=== PATIENT | male | born 1970 | race Two or more races ===

== ENCOUNTER → 2020-09-18 14:43 | Outpatient (BNVA) | payer MEDICARE, MEDICAID, SELFPAY | PROVIDERS: PCP Internal Medicine; Visit Provider Internal Medicine Gastroenterology | DX: Z13.89 Encounter for screening for other disorder (principal) | CPT/HCPCS: Q3014 ==

== ENCOUNTER → 2020-10-16 09:34 | Outpatient (BNVA) | payer MEDICARE, MEDICAID, SELFPAY | PROVIDERS: PCP Internal Medicine; Visit Provider Student in an Organized Health Care Education/Training Program | DX: Z13.89 Encounter for screening for other disorder (principal) | CPT/HCPCS: Q3014 ==

== ENCOUNTER 2020-10-18 12:19 | Outpatient (REF) | payer MEDICARE, MEDICAID, SELFPAY ==
--- NOTE | 2020-10-18 12:31 | XR_ITS ---
EXAMINATION: XR HAND, RIGHT CLINICAL INFORMATION: Pain right hand. COMPARISON: 06/03/15. TECHNIQUE: PA, lateral, and oblique views of the right hand. FINDINGS: There are moderate degenerative changes at the first metacarpal phalangeal joint with joint space narrowing and marginal osteophytosis. There is subluxation. The appearance has progressed from previous. No new abnormality is demonstrated. A small metallic foreign body over the dorsal aspect of the middle phalanx of the long finger is again demonstrated. 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 XR/XR hand RT min 3V IMPRESSION: Degenerative changes first metacarpal phalangeal joint with mild interval progression. Subluxation. No acute abnormality.
--- NOTE | 2020-10-18 12:31 | XR_ITS ---
EXAMINATION: XR WRIST, LEFT CLINICAL INFORMATION: Pain left wrist. COMPARISON: None TECHNIQUE: PA, lateral, and oblique views of the left wrist. FINDINGS: There is a small loose body adjacent to lunate and triquetrum bone. Likely old injury. The pisiform bone is not clearly visualized. There is no acute fracture, dislocation or subluxation seen. The soft tissues are unremarkable. XR/XR wrist LT min 3V IMPRESSION: The pisiform bone is not seen. There is a loose body seen adjacent to the lunate- triquetral joint, question old injury or displaced fusiform bone. Correlate with CT or MRI.
[2020-10-18 14:09] LABS: Erythrocyte Sedimentation Rate 13 MM/HR (0-15)
[2020-10-18 14:10] LABS: C Reactive Protein 0.27 mg/dL (< or = 0.50); Uric Acid 5.2 mg/dL (3.4-7.0)
== END 2020-10-18 12:20 | disposition home or self-care (01) ==
LOC: HO.LAB 12:19
PROVIDERS: PCP Internal Medicine; Visit Provider Student in an Organized Health Care Education/Training Program
DX: M79.641 Pain in right hand (principal); M25.532 Pain in left wrist
CPT/HCPCS: 36415; 73110; 73130; 84550; 85652; 86140

== ENCOUNTER 2020-10-29 13:35 | Outpatient (REF) | payer MEDICARE, MEDICAID, SELFPAY ==
--- NOTE | 2020-10-29 13:38 | CT_ITS ---
EXAMINATION: CT WRIST WITHOUT CONTRAST, LEFT CLINICAL INFORMATION: Left wrist pain. Recent trauma. COMPARISON: Multiple priors, most recent left wrist radiographs dated 10/18/2020. TECHNIQUE: Contiguous axial CT images of the left wrist were obtained without contrast. Multiplanar reformats were provided and reviewed. This CT examination was performed using dose optimization techniques as appropriate, variously including the following: *Automated exposure control *Adjustment of mA and/or kV according to patient size (this includes techniques or standardized protocols for targeted exams where dose is matched to indication/reason for exam; i.e. extremities or head) *Use of iterative reconstruction technique DOSE: 151 mGy-cm FINDINGS: No acute fracture or dislocation. There is a chronic carpal boss at the dorsal aspect of the hamate. There is a bone island within the lunate. There is a prominent osteophyte along the ulnar margin of the lunate, corresponding to the prior radiograph findings. Joint space narrowing with marginal osteophytes and degenerative cystic change throughout the carpus as well as at the radiocarpal and carpometacarpal joints. Findings are most severe at the 4th and 5th carpometacarpal joints. No concerning lytic or blastic osseous lesion. The visualized flexor and extensor tendons are grossly intact, however evaluation is significantly limited on CT examination. No abnormal soft tissue mass or fluid collection. CT/CT wrist LT wo con IMPRESSION: No acute fracture or dislocation. Prominent degenerative arthritis within the radiocarpal joint, throughout the carpus, as well as at the carpometacarpal joints. Findings are most severe at the 4th and 5th carpometacarpal joints. Prominent marginal osteophyte along the ulnar aspect of the lunate, corresponding to the prior wrist radiograph findings. Carpal boss at the dorsal aspect of the hamate.
== END 2020-10-29 13:36 | disposition home or self-care (01) ==
LOC: HO.CT 13:35
PROVIDERS: PCP Internal Medicine; Visit Provider Student in an Organized Health Care Education/Training Program
DX: M25.532 Pain in left wrist (principal)
CPT/HCPCS: 73200

== ENCOUNTER → 2020-11-22 13:00 | Outpatient (BNVA) | payer MEDICARE, MEDICAID, SELFPAY | PROVIDERS: Visit Provider Student in an Organized Health Care Education/Training Program | DX: M18.11 Unilateral primary osteoarthritis of first carpometacarpal joint, right hand (principal); M89.49 Other hypertrophic osteoarthropathy, multiple sites | CPT/HCPCS: 99212 ==

== ENCOUNTER → 2020-12-11 12:45 | Outpatient (BNVA) | payer MEDICARE, MEDICAID, SELFPAY | PROVIDERS: Visit Provider Internal Medicine Cardiovascular Disease | DX: I25.10 Atherosclerotic heart disease of native coronary artery without angina pectoris (principal); M79.606 Pain in leg, unspecified; Z98.62 Peripheral vascular angioplasty status | CPT/HCPCS: 93005; 99212 ==

== ENCOUNTER 2021-02-07 10:03 | Outpatient (REF) | payer MEDICARE, MEDICAID, SELFPAY ==
--- NOTE | ~2021-02-07 | US_ITS ---
EXAMINATION: US NONINVASIVE ANKLE BRACHIAL INDICES OF BOTH LOWER EXTREMITIES CLINICAL INFORMATION: Peripheral vascular disease. COMPARISON: 08/21/2011 TECHNIQUE: Ankle-brachial indices were calculated bilaterally and PVR tracings were performed at the level of the ankles. This study was performed at rest only. FINDINGS: A) AT REST: 1. The ankle-brachial indices are: Right 1.08 and left 1.07. >0.97-1.25 = normal - no significant arterial disease. 0.75-0.96 = mild peripheral arterial disease. 0.5-0.74 = moderate peripheral arterial disease. <0.50 = severe peripheral arterial disease. 2. PVR waveforms at ankle: Normal. US/US CIELO complete IMPRESSION: ABIs as well as PVR tracings at the ankle remain normal.
== END 2021-02-07 10:04 | disposition home or self-care (01) ==
LOC: HO.US 10:03
PROVIDERS: PCP Internal Medicine; Visit Provider Internal Medicine Cardiovascular Disease
DX: M79.606 Pain in leg, unspecified (principal); I73.9 Peripheral vascular disease, unspecified
CPT/HCPCS: 93923

== ENCOUNTER → 2021-03-17 12:52 | Outpatient (BNVA) | payer MEDICARE, MEDICAID, SELFPAY | PROVIDERS: PCP Internal Medicine; Referring Provider Internal Medicine; Visit Provider Internal Medicine Cardiovascular Disease | DX: I25.10 Atherosclerotic heart disease of native coronary artery without angina pectoris (principal); Z98.62 Peripheral vascular angioplasty status | CPT/HCPCS: 99212 ==

== ENCOUNTER → 2021-04-14 08:18 | Outpatient (BNVA) | payer MEDICARE, MEDICAID, SELFPAY | PROVIDERS: PCP Internal Medicine; Visit Provider Physician Assistant | CPT/HCPCS: Q3014 ==

== ENCOUNTER 2021-04-21 13:22 | Outpatient (REF) | payer MEDICARE, MEDICAID, SELFPAY ==
[2021-04-21 14:16] LABS: MANUAL DIFF FLAG NO
[2021-04-21 14:20] LABS: Basophils Absolute Auto 0.1 X10*3/uL (0.0-0.2); Basophils Percent Auto 0.5 % (0-2); Eosinophils Absolute Auto 0.1 X10*3/uL (0.0-0.4); Eosinophils Percent Auto 1.4 % (0-4); Hematocrit 42.2 % (42-52); Hemoglobin 14.1 g/dl (14.0-18.0); Imm Gran Abs Auto 0.09 X10*3/uL (0.00-0.03); Lymphocytes Absolute Auto 2.8 X10*3/uL (1.2-4.9); Lymphocytes Percent Auto 30.2 % (20-40); Mean Corpuscular HGB Conc 33.4 g/dl (31.0-36.0); Mean Corpuscular Hemoglobin 31.5 pg (27.0-33.0); Mean Corpuscular Volume 94.2 fL (80-98); Mean Platelet Volume 9.7 fL (9.4-12.4); Monocytes Absolute Auto 0.7 X10*3/uL (0.1-1.2); Monocytes Percent Auto 7.9 % (2-11); Neutrophils Absolute Auto 5.5 X10*3/uL (2.0-8.3); Platelet Count 204 X10*3/uL (160-400); Red Blood Count 4.48 X10*6/uL (4.60-5.80); Red Cell Distribution Width 12.9 % (11.0-16.0); White Blood Count 9.4 X10*3/uL (4.8-10.8)
[2021-04-21 15:42] LABS: Alanine Aminotransferase 27 U/L (0-40); Albumin Level 4.3 g/dL (3.5-5.0); Alkaline Phosphatase 86 U/L (39-117); Anion Gap 10 (12-20); Aspartate Amino Transferase 19 U/L (5-37); Bilirubin Total 0.7 mg/dL (0.0-1.0); Blood Urea Nitrogen 7 mg/dL (9-16); Calcium 9.3 mg/dL (8.4-10.2); Carbon Dioxide 28 mmol/L (22-29); Chloride 107 mmol/L (96-108); Cholesterol 142 mg/dL; Estimated Glomerular Filt Rate > 60; Glucose Fasting 110 mg/dL (60-99); HDL Cholesterol 39 mg/dL; LDL Cholesterol Calculated 86 mg/dl; Potassium 4.3 mmol/L (3.3-5.1); Sodium 141 mmol/L (135-145); Total Protein 7.6 g/dL (6.5-8.0); Triglycerides 88 mg/dL
[2021-04-21 16:03] LABS: Prostate Specific Antigen 0.74 ng/mL (<0.05-4.0)
[2021-04-21 16:04] LABS: Thyroid Stimulating Hormone 0.62 uIU/mL (0.32-4.0)
== END 2021-04-21 13:23 | disposition home or self-care (01) ==
LOC: HO.LAB 13:22
PROVIDERS: PCP Internal Medicine; Visit Provider Internal Medicine
DX: Z12.5 Encounter for screening for malignant neoplasm of prostate (principal); E78.00 Pure hypercholesterolemia, unspecified; R63.5 Abnormal weight gain; K21.9 Gastro-esophageal reflux disease without esophagitis; N40.0 Benign prostatic hyperplasia without lower urinary tract symptoms; I25.10 Atherosclerotic heart disease of native coronary artery without angina pectoris
CPT/HCPCS: 36415; 80053; 80061; 84153; 84443; 85025

== ENCOUNTER 2021-04-28 12:48 | Outpatient (REF) | payer MEDICARE, MEDICAID, SELFPAY ==
--- NOTE | ~2021-04-28 | XR_ITS ---
EXAMINATION: XR KNEE, LEFT CLINICAL INFORMATION: Left knee pain COMPARISON: None TECHNIQUE: Four views of the left knee. FINDINGS: There is mild loss of patellofemoral and medial compartment joint space. No acute fracture, bony erosive changes seen. There are small loose bodies inferior to patella likely old injury and secondary hypertrophic bony changes with a moderate size inferior patellar spur and a small superior patellar spur. No abnormal joint effusion seen. No soft tissue swelling. XR/XR knee LT 4V IMPRESSION: 1. Hypertrophic bony spurring along the superior and inferior patella and small loose bodies adjacent to the patella likely from old injury. 2. The medial and lateral compartments are normal. 3. There is no acute fracture seen.
== END 2021-04-28 12:49 | disposition home or self-care (01) ==
LOC: HO.XRAY 12:48
PROVIDERS: PCP Internal Medicine; Visit Provider Internal Medicine
DX: M25.562 Pain in left knee (principal)
CPT/HCPCS: 73564

== ENCOUNTER → 2021-07-21 13:57 | Outpatient (BNVA) | payer MEDICARE, MEDICAID, SELFPAY | PROVIDERS: PCP Internal Medicine; Referring Provider Internal Medicine; Visit Provider Internal Medicine Cardiovascular Disease | DX: I25.10 Atherosclerotic heart disease of native coronary artery without angina pectoris (principal) | CPT/HCPCS: 99212 ==

== ENCOUNTER 2021-08-19 11:07 | Outpatient (REF) | payer MEDICARE, MEDICAID, SELFPAY ==
--- NOTE | ~2021-08-19 | XR_ITS ---
EXAMINATION: XR MASTOIDS CLINICAL INFORMATION: Pain in the area the right mastoid COMPARISON: None TECHNIQUE: 3 views of the mastoid air cells bilaterally. FINDINGS: Normal aeration of the right and left mastoid air cells. No bone erosion no focal bone lesion. XR/XR mastoids <3V IMPRESSION: Normal bilateral mastoids.
[2021-08-19 13:58] LABS: MANUAL DIFF FLAG NO
[2021-08-19 14:07] LABS: Basophils Absolute Auto 0.1 X10*3/uL (0.0-0.2); Basophils Percent Auto 0.8 % (0-2); Eosinophils Absolute Auto 0.2 X10*3/uL (0.0-0.4); Eosinophils Percent Auto 2.5 % (0-4); Hematocrit 41.2 % (42.0-52.0); Imm Gran Abs Auto 0.07 X10*3/uL (0.00-0.03); Imm Gran Pct Auto 0.8 % (0.0-0.4); Lymphocytes Absolute Auto 3.1 X10*3/uL (1.2-4.9); Lymphocytes Percent Auto 33.7 % (20-40); Mean Corpuscular Hemoglobin 31.5 pg (27.0-33.0); Mean Corpuscular Volume 92.8 fL (80.0-98.0); Monocytes Absolute Auto 0.8 X10*3/uL (0.1-1.2); Monocytes Percent Auto 8.5 % (2-11); Neutrophils Percent Auto 53.7 % (45-73); Platelet Count 221 X10*3/uL (160-400); Red Blood Count 4.44 X10*6/uL (4.60-5.80); White Blood Count 9.3 X10*3/uL (4.8-10.8)
[2021-08-19 14:52] LABS: Alanine Aminotransferase 29 U/L (0-40); Albumin Level 4.1 g/dL (3.5-5.0); Alkaline Phosphatase 88 U/L (39-117); Anion Gap 11 (12-20); Aspartate Amino Transferase 19 U/L (5-37); Bilirubin Total 0.5 mg/dL (0.0-1.0); Blood Urea Nitrogen 7 mg/dL (9-16); C Reactive Protein 0.28 mg/dL (< or = 0.50); Calcium 8.9 mg/dL (8.4-10.2); Carbon Dioxide 25 mmol/L (22-29); Chloride 108 mmol/L (96-108); Estimated Glomerular Filt Rate > 60; Glucose Random 122 mg/dL (60-115); Potassium 3.9 mmol/L (3.3-5.1); Sodium 140 mmol/L (135-145); Total Protein 7.1 g/dL (6.5-8.0)
== END 2021-08-19 11:08 | disposition home or self-care (01) ==
LOC: HO.10HDL 11:07
PROVIDERS: Visit Provider Internal Medicine
DX: I25.10 Atherosclerotic heart disease of native coronary artery without angina pectoris (principal); E78.00 Pure hypercholesterolemia, unspecified; H92.01 Otalgia, right ear
CPT/HCPCS: 36415; 70120; 80053; 85025; 86140

== ENCOUNTER → 2021-12-01 14:33 | Outpatient (BNVA) | payer MEDICARE, MEDICAID, SELFPAY | PROVIDERS: PCP Internal Medicine; Referring Provider Internal Medicine; Visit Provider Internal Medicine Cardiovascular Disease | DX: I25.118 Atherosclerotic heart disease of native coronary artery with other forms of angina pectoris (principal) | CPT/HCPCS: 93005; 99212 ==

== ENCOUNTER → 2022-01-05 08:21 | Day surgery (SDC) | payer MEDICARE, MEDICAID, SELFPAY ==
[2021-10-14 09:40] VITALS: BMI 46.8
[2021-10-14 14:20] VITALS: BMI 41.2
--- NOTE | 2022-01-02 12:31 | P.CONAN_ITS ---
HPI - Anesthesia Eval Consult details Narrative: Cx'd 01/05/22 d/t +cocaine tox screen 51yo M for Upper Endoscopy and Colonoscopy Plavix/ASA for CAD s/p stent 06/2020 Stable at routine cardiac f/u 11/2021 [facility] Active Problems Active Problems: All Active Problems (Updated 12/01/21 @ 15:04 by Bhupendra Hoover MD) Stable angina (Acute) CAD (coronary artery disease) (Acute) GERD (gastroesophageal reflux disease) (Acute) Left wrist pain (Acute) Right hand pain (Acute) Primary osteoarthritis involving multiple joints (Acute) Osteoarthritis of carpometacarpal joint of right thumb (Acute) Leg pain (Acute) Claudication (Acute) GERD (gastroesophageal reflux disease) (Acute) Hx of colonic polyps (Acute) IBS (irritable colon syndrome) (Acute) Status post angioplasty (Acute) Past Medical History Medical History CAD (coronary artery disease) Elevated cholesterol GERD (gastroesophageal reflux disease) History of depression Hx of colonic polyps Hx of hypogonadism IBS (irritable colon syndrome) Migraine Neuropathy On beta bj at home Osteoarthritis Thalamic pain syndrome Vitamin D deficiency Family History Family History Father Heart attack Mother Heart attack Surgical History Surgical History History of ankle surgery History of carpal tunnel surgery of left wrist History of esophagogastroduodenoscopy (EGD) History of heart artery stent History of open reduction and internal fixation (ORIF) procedure History of rectal sphincterotomy History of shoulder surgery History of tonsillectomy Hx of colonoscopy with polypectomy Status post angioplasty Social History Social History Household Members: None Are you a primary health care liaison to a significant other at home: No Do you presently have visiting nurse or other home services: Yes ([employer]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 If so, by whom?: No Are you DNR?: No Advance Directives: No Advance Directives Information Provided: Yes Advance Directives on File: No Recently lost weight without trying: No Nutrition Risks: Difficulty chewing Poor oral hygiene: Yes (full dentures, ill-fitting and broken) Current occupational status: disabled Meds Allergies Allergy/AdvReac Type Severity Reaction Status Date / Time meloxicam [From [facility]] Allergy Severe GI BLEED Verified 12/01/21 14:40 Penicillins Allergy Severe ANAPHYLAXIS Verified 12/01/21 14:40 Home Medications Medication Instructions Recorded Confirmed Last Taken Type aspirin 81 mg chewable tablet 81 mg PO DAILY 09/18/20 12/01/21 Unknown History (Julia Chewable Low Dose Aspirin) baclofen 10 mg tablet 10 mg PO BEDTIME 10/16/20 12/01/21 Unknown History gabapentin 600 mg tablet 600 mg PO TID 10/16/20 12/01/21 Unknown History testosterone enanthate 100 mg/0.5 100 mg SUBCUT QWEEK 10/16/20 12/01/21 Unknown History mL subcutaneous auto-injector svnlypebtj-abvbyardafgaq-ixsxubna 1 cap PO Q6H PRN 10/14/21 12/01/21 Unknown History 50 mg-300 mg-40 mg capsule (Fioricet) Exam Exam Date and Time: January 02, 2022 1231 Height,Weight and Vital Signs: Height 5 ft 8 in Weight 122.924 kg Pertinent Lab Results Pertinent Lab Results: Laboratory Tests 08/19/21 08/19/21 11:11 11:11 WBC 9.3 Hgb 14.0 Hct 41.2 L Plt Count 221 Sodium 140 Potassium 3.9 Chloride 108 Carbon Dioxide 25 BUN 7 L Creatinine 0.78 Narrative Narrative: EKG 11/2021 NSR @ 83 cardiac catheterization 06/2020 which showed proximal LAD 50% stenosis as well as distal RCA 99% stenosis involving a bifurcation of a large posterior descending artery and posterolateral branch. This was treated with provisional stenting across the PL into the PDA. Assessment and Plan Assessment Anesthesia Assessment: Chart Reviewed
[2022-01-05 08:51] VITALS: BP 124/60; PULSE 92; RESP 18; TEMP 37; O2SAT 95
[2022-01-05 08:55] LABS: Amphetamine Screen Urine Not Detected (Not Detect); Barbiturates, Urine Not Detected (Not Detect); Benzodiazepines Screen Urine Not Detected (Not Detect); Cannabinoid Screen Urine POSITIVE (Not Detect); Cocaine Screen Urine POSITIVE (Not Detect); Fentanyl, urine Not Detected (Not Detect); Opiate Screen Urine Not Detected (Not Detect); Phencyclidine Screen Urine Not Detected (Not Detect)
== END ==
PROVIDERS: Nurse Practitioner; PCP Internal Medicine; Visit Provider Internal Medicine Gastroenterology
DX: K21.9 Gastro-esophageal reflux disease without esophagitis (principal); Z12.11 Encounter for screening for malignant neoplasm of colon; Z79.899 Other long term (current) drug therapy; Z53.8 Procedure and treatment not carried out for other reasons
CPT/HCPCS: 80307

== ENCOUNTER → 2022-05-25 14:53 | Outpatient (BNVA) | payer MEDICARE, MEDICAID, SELFPAY | PROVIDERS: PCP Internal Medicine; Referring Provider Internal Medicine; Visit Provider Internal Medicine Cardiovascular Disease | DX: I25.118 Atherosclerotic heart disease of native coronary artery with other forms of angina pectoris (principal); K01.1 Impacted teeth | CPT/HCPCS: 93005; 99212 ==

== ENCOUNTER 2022-08-06 09:48 | Outpatient (REF) | payer MEDICARE, MEDICAID, SELFPAY ==
[2022-08-06 10:36] LABS: MANUAL DIFF FLAG NO
[2022-08-06 10:39] LABS: Basophils Absolute Auto 0.1 X10*3/uL (0.0-0.2); Basophils Percent Auto 0.9 % (0-2); Eosinophils Absolute Auto 0.2 X10*3/uL (0.0-0.4); Eosinophils Percent Auto 2.4 % (0-4); Hematocrit 40.9 % (42.0-52.0); Hemoglobin 13.7 g/dl (14.0-18.0); Imm Gran Abs Auto 0.05 X10*3/uL (0.00-0.03); Imm Gran Pct Auto 0.6 % (0.0-0.4); Lymphocytes Absolute Auto 2.5 X10*3/uL (1.2-4.9); Lymphocytes Percent Auto 30.4 % (20-40); Mean Corpuscular HGB Conc 33.5 g/dl (31.0-36.0); Mean Corpuscular Hemoglobin 30.4 pg (27.0-33.0); Mean Corpuscular Volume 90.9 fL (80.0-98.0); Mean Platelet Volume 9.8 fL (9.4-12.4); Monocytes Absolute Auto 0.7 X10*3/uL (0.1-1.2); Monocytes Percent Auto 8.5 % (2-11); Neutrophils Absolute Auto 4.7 x10*3/uL (2.0-8.3); Neutrophils Percent Auto 57.2 % (45-73); Platelet Count 205 X10*3/uL (160-400); Red Cell Distribution Width 13.1 % (11.0-16.0); White Blood Count 8.2 X10*3/uL (4.8-10.8)
[2022-08-06 10:57] LABS: Alanine Aminotransferase 30 U/L (0-40); Albumin Level 4.1 g/dL (3.5-5.0); Alkaline Phosphatase 94 U/L (39-117); Anion Gap 14 (12-20); Aspartate Amino Transferase 18 U/L (5-37); Bilirubin Total 0.6 mg/dL (0.0-1.0); Blood Urea Nitrogen 7 mg/dL (9-16); C Reactive Protein 0.37 mg/dL (< or = 0.50); Carbon Dioxide 25 mmol/L (22-29); Chloride 106 mmol/L (96-108); Estimated Glomerular Filt Rate > 60; Glucose Random 131 mg/dL (60-115); Potassium 3.9 mmol/L (3.3-5.1); Sodium 141 mmol/L (135-145); Total Protein 7.2 g/dL (6.5-8.0)
[2022-08-06 11:00] LABS: Appearance Urine Clear; Color Urine Yellow; Glucose Urine UA Negative (Negative); Leukocyte Esterase Urine Trace (Negative); Nitrite Urine Negative (Negative); PH 6.5 (5.0-9.0); UMIC TRIGGER UACC YES; Urine Blood Negative (Negative); Urine Ketones Negative (Negative); Urine Protein Negative (Neg-Trace)
[2022-08-06 11:05] LABS: Bacteria Urine None Seen (None Seen); Hyaline Casts Urine 0-2 /LPF (0-2); RBC Urine 0-2 /HPF (0-2); Squamous Epithelial Cell Urine 0-2 /HPF (0-2); WBC Urine 0-5 /HPF (0-5)
== END 2022-08-06 09:49 | disposition home or self-care (01) ==
LOC: HO.10HDL 09:48
PROVIDERS: Visit Provider Internal Medicine
DX: I25.10 Atherosclerotic heart disease of native coronary artery without angina pectoris (principal); E78.00 Pure hypercholesterolemia, unspecified; R51.9 Headache, unspecified; R42 Dizziness and giddiness
CPT/HCPCS: 36415; 80053; 81001; 81003; 82550; 85025; 86140; 87086

== ENCOUNTER 2022-09-21 10:18 | Outpatient (REF) | payer MEDICARE, MEDICAID, SELFPAY ==
--- NOTE | ~2022-09-21 | XR_ITS ---
EXAMINATION: XR ABDOMEN KUB CLINICAL INDICATION: Foreign body of alimentary tract COMPARISON: Spine radiographs 02/13/2016 TECHNIQUE: AP view of the abdomen. FINDINGS: Epidural spinal stimulator again seen. The generator pack is in the left abdomen. Nonobstructive abdominal bowel gas pattern. No abnormal abdominal calcifications. Degenerative changes of the lower lumbar spine. Mild osteoarthritis of the bilateral hips. XR/XR KUB IMPRESSION: Epidural spinal stimulator again seen.
== END 2022-09-21 10:19 | disposition home or self-care (01) ==
LOC: HO.XRAY 10:18
PROVIDERS: PCP Internal Medicine; Visit Provider Internal Medicine Gastroenterology
DX: T18.9XXA Foreign body of alimentary tract, part unspecified, initial encounter (principal)
CPT/HCPCS: 74018

== ENCOUNTER 2022-09-25 12:40 | Day surgery (SDC) | payer MEDICARE, MEDICAID, SELFPAY ==
[2022-09-21 15:31] VITALS: BMI 41.0
--- NOTE | 2022-09-22 13:09 | HO.ANESPROP2 ---
Documented by User: Jenny Garvey NP 09/22/22 13:12 HPI - Anesthesia Eval Consult details Narrative: 52yo M for Upper Endoscopy and Colonoscopy CAD with hx stent 06/2020 - per cardiology, ok to hold plavix, continue asa PMFSH Active Problems Active Problems: All Active Problems (Updated 09/21/22 @ 09:14 by Megan Alvarez MD) Foreign body alimentary tract (Acute) Impacted molar (Acute) Stable angina (Acute) CAD (coronary artery disease) (Acute) GERD (gastroesophageal reflux disease) (Acute) Left wrist pain (Acute) Right hand pain (Acute) Primary osteoarthritis involving multiple joints (Acute) Osteoarthritis of carpometacarpal joint of right thumb (Acute) Leg pain (Acute) Claudication (Acute) GERD (gastroesophageal reflux disease) (Acute) Hx of colonic polyps (Acute) IBS (irritable colon syndrome) (Acute) Status post angioplasty (Acute) Past Medical History Medical History (Updated 09/21/22 @ 09:14 by Megan Alvarez MD) CAD (coronary artery disease) Elevated cholesterol GERD (gastroesophageal reflux disease) History of depression Hx of colonic polyps Hx of hypogonadism IBS (irritable colon syndrome) Migraine Neuropathy On beta bj at home Osteoarthritis Thalamic pain syndrome Vitamin D deficiency Family History Family History Father Heart attack Mother Heart attack Surgical History Surgical History History of ankle surgery History of carpal tunnel surgery of left wrist History of esophagogastroduodenoscopy (EGD) History of heart artery stent History of open reduction and internal fixation (ORIF) procedure History of rectal sphincterotomy History of shoulder surgery History of tonsillectomy Hx of colonoscopy with polypectomy Status post angioplasty Social History Social History Household Members: None Are you a primary care transition manager to a significant other at home: No Do you 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 If so, by whom?: No Are you DNR?: No Advance Directives: No Advance Directives Information Provided: Yes Advance Directives on File: No Recently lost weight without trying: No Current occupational status: disabled Meds Allergies Allergy/AdvReac Type Severity Reaction Status Date / Time meloxicam [From [facility]] Allergy Severe GI BLEED Verified 05/25/22 15:03 Penicillins Allergy Severe ANAPHYLAXIS Verified 05/25/22 15:03 Home Medications Medication Instructions Recorded Confirmed Last Taken Type aspirin 81 mg chewable tablet 81 mg PO DAILY 09/18/20 09/21/22 Unknown History (Julia Chewable Low Dose Aspirin) baclofen 10 mg tablet 10 mg PO BEDTIME 10/16/20 09/21/22 Unknown History gabapentin 600 mg tablet 600 mg PO TID 10/16/20 09/21/22 Unknown History testosterone enanthate 100 mg/0.5 100 mg subcut QWEEK 10/16/20 09/21/22 Unknown History mL subcutaneous auto-injector wfuindhldw-kemfjuanqahiz-gyjwxqkw 1 cap PO Q6H PRN Headache 10/14/21 09/21/22 Unknown History 50 mg-300 mg-40 mg capsule (Fioricet) Exam Exam Date and Time: September 22, 2022 1309 Height,Weight and Vital Signs: Height 5 ft 8 in Weight 122.47 kg Pertinent Lab Results Pertinent Lab Results: Laboratory Tests 08/06/22 08/06/22 09:55 09:55 WBC 8.2 Hgb 13.7 L Hct 40.9 L Plt Count 205 Sodium 141 Potassium 3.9 Chloride 106 Carbon Dioxide 25 BUN 7 L Creatinine 0.73 Narrative Narrative: EKG 05/2022 Normal sinus rhythm 65 beats per minute, normal axis, normal EKG, QTC 420 milliseconds Assessment and Plan Assessment Anesthesia Assessment: Chart Reviewed Documented by User: Renu Pritchett MD 09/25/22 14:06 [facility] Past Medical History Medical History (Updated 09/21/22 @ 09:14 by Megan Alvarez MD) CAD (coronary artery disease) Elevated cholesterol GERD (gastroesophageal reflux disease) History of depression Hx of colonic polyps Hx of hypogonadism IBS (irritable colon syndrome) Migraine Neuropathy On beta bj at home Osteoarthritis Thalamic pain syndrome Vitamin D deficiency Family History Family History Father Heart attack Mother Heart attack Family history of problems with anesthesia: No Surgical History Surgical History History of ankle surgery History of carpal tunnel surgery of left wrist History of esophagogastroduodenoscopy (EGD) History of heart artery stent History of open reduction and internal fixation (ORIF) procedure History of rectal sphincterotomy History of shoulder surgery History of tonsillectomy Hx of colonoscopy with polypectomy Status post angioplasty History of Problems with Anesthesia: No Social History Social History Household Members: None Are you a primary care transition manager to a significant other at home: No Do you 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 If so, by whom?: No Are you DNR?: No Advance Directives: No Advance Directives Information Provided: Yes Advance Directives on File: No Recently lost weight without trying: No Current occupational status: disabled Meds Allergies Allergy/AdvReac Type Severity Reaction Status Date / Time meloxicam [From [facility]] Allergy Severe GI BLEED Verified 05/25/22 15:03 Penicillins Allergy Severe ANAPHYLAXIS Verified 05/25/22 15:03 Home Medications Medication Instructions Recorded Confirmed Last Taken Type aspirin 81 mg chewable tablet 81 mg PO DAILY 09/18/20 09/21/22 Unknown History (Julia Chewable Low Dose Aspirin) baclofen 10 mg tablet 10 mg PO BEDTIME 01/13/21 12/19/22 Unknown History gabapentin 600 mg tablet 600 mg PO TID 10/16/20 09/21/22 Unknown History testosterone enanthate 100 mg/0.5 100 mg subcut QWEEK 10/16/20 09/21/22 Unknown History mL subcutaneous auto-injector jvaxlebyhc-vcjuebkmzktxb-pddadasf 1 cap PO Q6H PRN Headache 10/14/21 09/21/22 Unknown History 50 mg-300 mg-40 mg capsule (Fioricet) Exam Airway Mallampati Class: II TM Dist: >3cm Partial: Upper and Lower Heart: rrr Lungs: cta Assessment and Plan Assessment Anesthesia Assessment: Anesthesia Plan Discussed Final Anesthetic Review Family History of Problems with Anesthesia: No History of Problems with Anesthesia: No NPO: Yes ASA Class: III Final Preanesthetic Review: No Changes in Pt Med Stat, Meds/Allgs Chart Reviewed and Consent Obtained/Reviewed Patient Risk: Intermediate Procedure Risk: Intermediate Anesthetic Plan Anesthetic Plan: MAC: Disposition: Standard PACU
[2022-09-25 13:20] VITALS: BP 114/63; PULSE 76; RESP 18; TEMP 36.8; O2SAT 97
[2022-09-25 13:25] LABS: Amphetamine Screen Urine Not Detected (Not Detect); Barbiturates, Urine Not Detected (Not Detect); Benzodiazepines Screen Urine Not Detected (Not Detect); Cannabinoid Screen Urine POSITIVE (Not Detect); Cocaine Screen Urine Not Detected (Not Detect); Fentanyl, urine Not Detected (Not Detect); Opiate Screen Urine Not Detected (Not Detect); Phencyclidine Screen Urine Not Detected (Not Detect)
[2022-09-25] MEDS: Lactated Ringers 1,000 ML 100 ML IVCONT (13:38)
--- NOTE | 2022-09-25 14:02 | MHC.SHP ---
Pre-Procedural Eval Section A Date of Service: 09/25/22 The patient is an INPATIENT: No The History & Physical has been completed within 30 days and I have reviewed it.: No Section B Chief Complaint: screening,hx of polyps, GERD Details of Present Illness: colon cancer screening, history of colon polyps, GERD, history of peptic ulcer disease Relevant Family History (Specify if Yes): No Present Medications: see Short Stay Collaborative assessment Medical History: Significant History (Hx of colonic polyps IBS (irritable colon syndrome)) History of Previous Operations: Relevant previous surgery/procedure and date(s) (History of esophagogastroduodenoscopy (EGD) Hx of colonoscopy with polypectomy Status post angioplasty) Allergies: Allergies Allergy/AdvReac Type Severity Reaction Status Date / Time meloxicam [From [facility]] Allergy Severe GI BLEED Verified 05/25/22 15:03 Penicillins Allergy Severe ANAPHYLAXIS Verified 05/25/22 15:03 Review of Systems Sugical H&P ROS: Negative: Constitution, Cardiovascular, Respiratory and Gastrointestinal Exam Surgical H&P Exam: Normal: Heart, Normal: Lungs, Normal: Extremities and Normal: Abdomen Plan Diagnosis/Plan: Unchanged I have reviewed the history and physical and performed a pertinent physical examination on my patient. No changes have occurred unless specified. Time Spent With Patient Time: Total time managing care of this patient today ____ minutes.
--- NOTE | 2022-09-25 14:12 | P.OP_ITS ---
Operative Note Operative Note Date of Service: 09/25/22 Narrative: Pre-op diagnosis: colon polyps, diverticulosis, hemorrhoids) Surgeon: Megan Alvarez MD Anesthesia:?MAC FLEXIBLE TRANSORAL UPPER GASTROINTESTINAL ENDOSCOPY WITH BIOPSIES AND COLONOSCOPY TILL CECUM WITH BIOPSIES AND SNARE POLYPECTOMY UPPER ENDOSCOPY Consent: Indications for the procedure and potential complications of UPPER ENDOSCOPY Instrument: Olympus GIF H 190 mid size upper endoscope Monitoring: Vital signs and clinical assessment, continuous EKG monitoring, Pulse oximetry, Carbon Dioxide monitoring and blood
--- NOTE | 2022-09-25 14:12 | P.BOP_ITS ---
Brief Operative Note Date of Service: 09/25/22 Pre-op diagnosis: colon cancer screening, history of colon polyps, GERD Surgeon: Megan Alvarez MD Procedure: EGD WITH BIOPSIES Was an Cobol Application Developer used for this Procedure?: Yes Surgeon: Megna Alvarez MD
--- NOTE | 2022-09-25 14:12 | PM.OP ---
Brief Operative Note Date of Service: 09/25/22 Pre-op diagnosis: colon cancer screening, history of colon polyps, GERD Post-op diagnosis: other ( GERD, esophagitis, esophageal nodule, gastritis, colon polyps, diverticulosis, hemorrhoids) Procedure: EGD WITH BIOPSIES COLONOSCOPY TO CECUM WITH BIOPSIES AND SNARE POLYPECTOMY Surgeon: Megan Alvarez MD Anesthesia: MAC Was an Polygraph Technician used for this Procedure?: Yes Polygraph Technician: Katherin Aguirre Estimated blood loss (mL): 0 Pathology: other ( A. gastric antrum bxs, R/O H. pylori B. gastric body bxs C. nodule @ E-G junction bxs D. transverse colon polyps (2) E. random left colon bxs) Condition: stable Disposition: PACU
--- NOTE | 2022-09-25 14:12 | W.PM.OPN ---
Operative Note Operative Note Date of Service: 09/25/22 Narrative: Pre-op diagnosis: colon cancer screening, history of colon polyps, GERD Post-op diagnosis:?other ( GERD, esophagitis, esophageal? nodule, gastritis, colon polyps, diverticulosis, hemorrhoids) Surgeon: Megan Alvarez MD Anesthesia:?MAC FLEXIBLE TRANSORAL UPPER GASTROINTESTINAL ENDOSCOPY WITH BIOPSIES AND COLONOSCOPY TILL CECUM WITH BIOPSIES AND SNARE POLYPECTOMY UPPER ENDOSCOPY Consent: Indications for the procedure and potential complications of bleeding, perforation, reaction to medications and missed diagnosis were discussed with the patient and informed consent was obtained. Instrument: Olympus GIF H 190 mid size upper endoscope Monitoring: Vital signs and clinical assessment, continuous EKG monitoring, Pulse oximetry, Carbon Dioxide monitoring and blood pressure monitoring were done throughout the procedure. Procedure: The patient was placed in the left lateral decubitis position and pre-procedure medications were administered and a bite block was placed. The endoscope was inserted into the mouth and advanced under direct vision to the third part of duodenum. A careful inspection was made as the upper endoscope was withdrawn including a retroflexed examination of the proximal stomach; Findings and interventions are described below. Findings: Larynx: edema of arytenoid cartligaes Esophagus: GE junction at 36 cms. Focal esophagitis at GE junction. Edematous folds on gastric side of GEJ with a 1.5 cms benign appearing polyp - biopsied. No Ferguson's. Stomach: Moderate diffuse gastric erythema with scattered 2-3 mm erosions in the antrum. Biopsies were obtained from the antrum and body of the stomach. Grade 2 flap valve on retroflexed examination of the cardia. Duodenum: Normal bulb and descending duodenum Intervention: Biopsies as noted above COLONOSCOPY PROCEDURE NOTE Consent: Indications for the procedure and potential complications of bleeding, perforation, reaction to medications and missed diagnosis were discussed with the patient and informed consent was obtained. Instrument: Olympus PCF H 190 L variable stiffness pediatric colonoscope Monitoring: Vital signs and clinical assessment, intermittent blood pressure monitoring, continuous EKG monitoring, Pulse oximetry and Carbon Dioxide monitoring were done throughout the procedure. Colon withdrawl time was 28 minutes. Procedure: The patient was placed in the left lateral decubitis position and pre-procedure medications were administered. After a digital rectal examination of the ano-rectum, the video colonoscope was inserted into the rectum and advanced through the colon to the cecum. The colonoscope was slowly withdrawn in a retrograde panoramic fashion and the colon mucosa was carefully examined including a retroflexed view of the rectum. Findings and interventions are described below. Procedure Difficulty: colon was long and tortuous and there was some loop formation. Findings: Terminal Ileum: Not evaluated Cecum: Normal Ascending Colon: scattered moderate diverticulosis throughout the colon Transverse Colon: A 2 cms sessile polyp removed with a hot snare. A 5-6 mm sessile polyp removed with a cold snare. Scattered moderate diverticulosis throughout the colon Descending Colon: Scattered moderate diverticulosis throughout the colon Sigmoid Colon: Patchy erythema in the distal sigmoid colon - random biospies obtained. Scattered moderate diverticulosis throughout the colon Rectum: Normal Ano-rectum: Moderate internal hemorrhoids Colon preparation: Good after copious irrigation and a few scattered lumps of solid stool Impression and Post Procedure Diagnosis: Endoscopy Findings: LARYNX: Changes suggestive of LPRD ESOPHAGUS: GE junction at 36 cms. Focal esophagitis at GE junction. Edematous folds on gastric side of GEJ with a 1.5 cms benign appearing polyp - biopsied. STOMACH: Moderate diffuse gastric erythema with scattered 2-3 mm erosions in the antrum. Biopsies were obtained from the antrum and body of the stomach. Grade 2 flap valve on retroflexed examination of the cardia. Colonoscopy Findings: Two small to medium sized polyps removed Moderate diverticulosis seen in the entire colon Moderate hemorrhoids on retroflexed exam. Plan: Await pathology results Patient has an appointment on 10/08/22 in the GI Clinic with ROSALINDA Solorzano . Repeat Colonoscopy interval based on path results - in 3-5 years if polyps are adenomatous and 10 years if polyps are hyperplastic. Pt advised to resume Plavix on 09/30/22 Above findings were reviewed with the patient and GERD, colon polyps and diverticulosis handouts were given in the discharge area
[2022-09-25 15:15] VITALS: BP 120/67; PULSE 64; RESP 16; TEMP 36.4; O2SAT 100
[2022-09-25 15:30] VITALS: BP 109/73; PULSE 63; RESP 18; O2SAT 99
[2022-09-25 15:45] VITALS: TEMP 36.4
== END 2022-09-25 15:55 | disposition home or self-care (01) ==
PROVIDERS: Anesthesiology; PCP Internal Medicine; Visit Provider Internal Medicine Gastroenterology
PROC: (CPT 45385; principal; 2022-09-25 13:50)
DX: Z12.11 Encounter for screening for malignant neoplasm of colon (principal); Z86.010 Personal history of colon polyps; D12.3 Benign neoplasm of transverse colon; K57.30 Diverticulosis of large intestine without perforation or abscess without bleeding; K64.8 Other hemorrhoids; K21.9 Gastro-esophageal reflux disease without esophagitis; D13.0 Benign neoplasm of esophagus; K29.50 Unspecified chronic gastritis without bleeding; K20.80 Other esophagitis without bleeding; K58.9 Irritable bowel syndrome, unspecified; A21.9 Tularemia, unspecified; I25.10 Atherosclerotic heart disease of native coronary artery without angina pectoris; Z98.61 Coronary angioplasty status; G89.0 Central pain syndrome; E55.9 Vitamin D deficiency, unspecified; Z79.01 Long term (current) use of anticoagulants; Z79.82 Long term (current) use of aspirin; Z79.899 Other long term (current) drug therapy; Z88.0 Allergy status to penicillin; Z88.8 Allergy status to other drugs, medicaments and biological substances; Z98.62 Peripheral vascular angioplasty status; F12.90 Cannabis use, unspecified, uncomplicated
CPT/HCPCS: 45385; 45380; 43239; 80307; 88305; 88342

== ENCOUNTER 2022-10-13 12:53 | Outpatient (REF) | payer MEDICARE, MEDICAID, SELFPAY ==
[2022-10-13 13:50] LABS: MANUAL DIFF FLAG NO
[2022-10-13 13:55] LABS: Basophils Absolute Auto 0.1 X10*3/uL (0.0-0.2); Basophils Percent Auto 0.8 % (0-2); Eosinophils Absolute Auto 0.2 X10*3/uL (0.0-0.4); Eosinophils Percent Auto 2.6 % (0-4); Hematocrit 42.4 % (42.0-52.0); Hemoglobin 14.2 g/dl (14.0-18.0); Imm Gran Abs Auto 0.05 X10*3/uL (0.00-0.03); Imm Gran Pct Auto 0.6 % (0.0-0.4); Lymphocytes Absolute Auto 2.9 X10*3/uL (1.2-4.9); Lymphocytes Percent Auto 32.6 % (20-40); Mean Corpuscular HGB Conc 33.5 g/dl (31.0-36.0); Mean Corpuscular Hemoglobin 30.9 pg (27.0-33.0); Mean Corpuscular Volume 92.4 fL (80.0-98.0); Monocytes Absolute Auto 0.9 X10*3/uL (0.1-1.2); Neutrophils Absolute Auto 4.7 x10*3/uL (2.0-8.3); Neutrophils Percent Auto 53.4 % (45-73); Platelet Count 233 X10*3/uL (160-400); Red Blood Count 4.59 X10*6/uL (4.60-5.80); Red Cell Distribution Width 13.2 % (11.0-16.0); White Blood Count 8.9 X10*3/uL (4.8-10.8)
[2022-10-13 14:22] LABS: Estimated Average Glucose 123 mg/dL; Hemoglobin A1c % 5.9 %
[2022-10-13 14:23] LABS: Anion Gap 9 (12-20); Blood Urea Nitrogen 7 mg/dL (9-16); Calcium 9.6 mg/dL (8.4-10.2); Carbon Dioxide 29 mmol/L (22-29); Chloride 106 mmol/L (96-108); Estimated Glomerular Filt Rate > 60; Glucose Random 123 mg/dL (60-115); Iron 73 mcg/dL (45-160); Percent Iron Saturation 26 % (15-50); Potassium 4.3 mmol/L (3.3-5.1); Sodium 140 mmol/L (135-145); Total Iron Binding Capacity 285 mcg/dL (228-428); Unsaturated Iron Binding 212 ug/dL
== END 2022-10-13 12:54 | disposition home or self-care (01) ==
LOC: HO.10HDL 12:53
PROVIDERS: Visit Provider Internal Medicine
DX: R73.03 Prediabetes (principal); N18.9 Chronic kidney disease, unspecified; R60.0 Localized edema
CPT/HCPCS: 36415; 80048; 83036; 83540; 85025

== ENCOUNTER → 2022-11-13 10:59 | Outpatient (BNVA) | payer MEDICARE, MEDICAID, SELFPAY | PROVIDERS: PCP Internal Medicine; Visit Provider Urology | DX: N40.1 Benign prostatic hyperplasia with lower urinary tract symptoms (principal); N13.8 Other obstructive and reflux uropathy; E29.1 Testicular hypofunction; N52.9 Male erectile dysfunction, unspecified; Z79.82 Long term (current) use of aspirin | CPT/HCPCS: 36415; 84402; 84403; 99202 ==

== ENCOUNTER 2022-11-13 11:44 | Outpatient (REF) | payer MEDICARE, MEDICAID, SELFPAY ==
[2022-11-20 17:13] LABS: Testosterone, Free 41.1 pg/mL (35.0-155.0); Testosterone, Total 246 ng/dL (250-1100)
== END 2022-11-13 11:45 | disposition home or self-care (01) ==
LOC: HO.10HDL 11:44
PROVIDERS: Visit Provider Urology
DX: Z13.89 Encounter for screening for other disorder (principal)
CPT/HCPCS: 36415; 84402; 84403

== ENCOUNTER 2022-12-04 12:28 | Outpatient (REF) | payer MEDICARE, MEDICAID, SELFPAY ==
[2022-12-13 18:29] LABS: Testosterone, Free 38.5 pg/mL (35.0-155.0); Testosterone, Total 236 ng/dL (250-1100)
== END 2022-12-04 12:29 | disposition home or self-care (01) ==
LOC: HO.10HDL 12:28
PROVIDERS: Visit Provider Urology
DX: E29.1 Testicular hypofunction (principal)
CPT/HCPCS: 36415; 84402; 84403

== ENCOUNTER → 2022-12-09 15:36 | Outpatient (BNVA) | payer MEDICARE, MEDICAID, SELFPAY | PROVIDERS: PCP Internal Medicine; Visit Provider Urology | DX: E29.1 Testicular hypofunction (principal); N52.9 Male erectile dysfunction, unspecified; I73.9 Peripheral vascular disease, unspecified | CPT/HCPCS: Q3014 ==

== ENCOUNTER → 2022-12-24 13:14 | Outpatient (BNVA) | payer MEDICARE, MEDICAID, SELFPAY | PROVIDERS: PCP Internal Medicine; Referring Provider Internal Medicine; Visit Provider Internal Medicine Cardiovascular Disease | DX: I20.8 Other forms of angina pectoris (principal); E78.00 Pure hypercholesterolemia, unspecified; F12.21 Cannabis dependence, in remission; Z95.5 Presence of coronary angioplasty implant and graft; Z98.890 Other specified postprocedural states | CPT/HCPCS: 93005; 99212 ==

== ENCOUNTER 2023-06-01 11:07 | Outpatient (REF) | payer MEDICARE, MEDICAID, SELFPAY ==
[2023-06-01 13:17] LABS: MANUAL DIFF FLAG NO
[2023-06-01 13:21] LABS: Basophils Absolute Auto 0.1 X10*3/uL (0.0-0.2); Basophils Percent Auto 0.7 % (0-2); Eosinophils Absolute Auto 0.2 X10*3/uL (0.0-0.4); Hematocrit 42.6 % (42.0-52.0); Hemoglobin 14.3 g/dl (14.0-18.0); Imm Gran Abs Auto 0.06 X10*3/uL (0.00-0.03); Imm Gran Pct Auto 0.6 % (0.0-0.4); Lymphocytes Percent Auto 31.8 % (20-40); Mean Corpuscular HGB Conc 33.6 g/dl (31.0-36.0); Mean Corpuscular Hemoglobin 30.8 pg (27.0-33.0); Mean Corpuscular Volume 91.8 fL (80.0-98.0); Mean Platelet Volume 10.3 fL (9.4-12.4); Monocytes Absolute Auto 0.8 X10*3/uL (0.1-1.2); Monocytes Percent Auto 8.5 % (2-11); Neutrophils Absolute Auto 5.4 x10*3/uL (2.0-8.3); Neutrophils Percent Auto 56.4 % (45-73); Platelet Count 205 X10*3/uL (160-400); Red Blood Count 4.64 X10*6/uL (4.60-5.80); Red Cell Distribution Width 13.2 % (11.0-16.0); White Blood Count 9.6 X10*3/uL (4.8-10.8)
[2023-06-01 13:30] LABS: Estimated Average Glucose 117 mg/dL; Hemoglobin A1c % 5.7 % (<6.0)
[2023-06-01 13:52] LABS: Alanine Aminotransferase 25 U/L (0-40); Albumin Level 4.2 g/dL (3.5-5.0); Alkaline Phosphatase 81 U/L (39-117); Anion Gap 11 (12-20); Aspartate Amino Transferase 20 U/L (5-37); Bilirubin Total 0.6 mg/dL (0.0-1.0); Blood Urea Nitrogen 9 mg/dL (9-16); Calcium 9.3 mg/dL (8.4-10.2); Carbon Dioxide 24 mmol/L (22-29); Chloride 109 mmol/L (96-108); Estimated Glomerular Filt Rate > 60; Glucose Random 146 mg/dL (60-115); Potassium 4.1 mmol/L (3.3-5.1); Sodium 140 mmol/L (135-145); Total Protein 7.5 g/dL (6.5-8.0)
[2023-06-05 17:03] LABS: Testosterone, Free 38.9 pg/mL (35.0-155.0); Testosterone, Total 246 ng/dL (250-1100)
== END 2023-06-01 11:08 | disposition home or self-care (01) ==
LOC: HO.10HDL 11:07
PROVIDERS: PCP Internal Medicine; Visit Provider Urology
DX: E29.1 Testicular hypofunction (principal); I10 Essential (primary) hypertension; K21.9 Gastro-esophageal reflux disease without esophagitis; N40.0 Benign prostatic hyperplasia without lower urinary tract symptoms; R73.03 Prediabetes
CPT/HCPCS: 36415; 80053; 83036; 84402; 84403; 85025

== ENCOUNTER 2023-06-18 14:09 | Outpatient (AMB) | payer MEDICARE, MEDICAID, SELFPAY ==
--- NOTE | 2023-06-18 14:22 | MHC.OFFVIS ---
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: No Accompanied by: Self / Same As Patient Allergies meloxicam [From MOBIC] Allergy (Severe, Verified 06/18/23 14:28) GI BLEED Penicillins Allergy (Severe, Verified 06/18/23 14:28) ANAPHYLAXIS Medication List - Last Reconciled 06/18/23 by Kayden Simmons MD aspirin (Julia Chewable Low Dose Aspirin) 81 mg PO DAILY atorvastatin 40 mg PO DAILY 90 days fwjhgohjzz-jvyagkdkwmlxj-rbsm 50-300-40 mg (Fioricet) 1 cap PO Q6H PRN clopidogrel 75 mg PO DAILY gabapentin 600 mg PO TID metoprolol succinate ER 25 mg PO DAILY omeprazole 20 mg PO BID tadalafil 5 mg PO DAILY 90 days tadalafil 20 mg PO ONCE PRN 30 days HPI HPI Comments History of Present Illness Details Fred is a pleasant male. He is a patient Dr. Hoffman. He seen for the following urologic conditions - hypogonadism - erectile dysfunction - lower urinary tract symptoms Free T remains in normal range Does smoke marijuana daily which may suppress testosterone Erections response to daily tadalafil Has stopped tadalafil and has noticed decline in performance of bladder parameters, erections, well-being Restart 5 mg daily with 20 on demand Hypogonadism Reports prior T therapies Labs - 11/26 TT 246 FT 41, 05/26 T 246 F 39 Erectile dysfunction Progressive Known coronary artery disease On medication for blood pressure, dyslipidemia Trial of daily Cialis with boost Lower urinary tract symptoms Good response to 5 mg daily tadalafil Improved stream and bladder stabilization PFSH Medical History Migraine On beta bj at home Elevated cholesterol Vitamin D deficiency History of depression Thalamic pain syndrome Hx of hypogonadism Neuropathy CAD (coronary artery disease) Osteoarthritis GERD (gastroesophageal reflux disease) Hx of colonic polyps IBS (irritable colon syndrome) Surgical History Hx of colonoscopy History of rectal sphincterotomy History of shoulder surgery History of open reduction and internal fixation (ORIF) procedure History of ankle surgery History of carpal tunnel surgery of left wrist History of tonsillectomy History of heart artery stent Hx of colonoscopy with polypectomy History of esophagogastroduodenoscopy (EGD) Status post angioplasty Family History Father Heart attack Mother Heart attack Social History Household Members: None Are you a primary transitional care manager to a significant other at home: No Do you presently have visiting nurse or other home services: Yes (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) Alcohol intake: current Alcohol intake frequency: does not drink Alcohol type: beer Patient Tobacco Use Status: Never used Tobacco Substance Use Type: Marijuana Current occupational status: disabled Review of Systems Const Denies chills and Denies fever(s) Card Reports no additional complaints and Denies syncope Resp Denies cough GI Denies abdominal pain and Denies heartburn Reports as per HPI and Denies change in libido Neuro Denies syncope Psych Denies change in libido Endo Denies change in libido Physical Exam Const General: cooperative, healthy appearing, comfortable and no acute distress Orientation/consciousness: patient oriented x3 HEENT Face and sinus: Yes normal facial exam Mouth: moist mucous membranes Neck Neck: Yes normal visual inspection, Yes full ROM and Yes trachea midline Chest Chest palpation & inspection: normal inspection of the chest Resp Effort & Inspection: normal respiratory effort, able to speak in complete sentences and no respiratory distress GI Inspection: Yes normal to inspection Back/Spine/Pelvis Cervical Spine: normal cervical lordosis Thoracic/Lumbar Spine: thoracic and lumbar spine normal to inspection Skin General skin exam: no rashes or lesions noted Neuro General: patient oriented x3, gait normal, tone normal and moves all extremities Extrem General: Yes normal to inspection and Yes capillary refill normal Assessment & Plan Assessment & Plan (1) Hypogonadism in male: Code(s): E29.1 - Testicular hypofunction (2) Erectile dysfunction: Code(s): N52.9 - Male erectile dysfunction, unspecified (3) Bladder outlet obstruction: Code(s): N32.0 - Bladder-neck obstruction Plan Six month follow-up tele Patient Instructions: Imaging studies, laboratory and physical exam results were discussed and reviewed in detail. No major barriers to patient understanding were identified. An opportunity to ask questions regarding the treatment plan was provided. All questions were answered. The patient expressed understanding and agreement with the above treatment plan. The patient is aware they should contact our office by phone for worsening of their current condition or the appearance of new urologic symptoms. Compliance is encouraged with any medications and followup testing that is ordered. It is a privilege to participate in the urologic care of your patient. If you have any questions or concerns regarding treatment for the above conditions, or other urologic issues, please do not hesitate to contact me. The office telephone contact is [phone]. This note is constructed using voice recognition software. While every effort has been made to ensure accuracy mirror polisher errors may have been included. Yours sincerely, Dr Kayden Simmons MD, [facility] - Urology Providers of Expert, Compassionate Care for the Genitourinary System Coding Level of Care Code Est Pt Level 4 (38225) Diagnoses Hypogonadism in male E29.1 Erectile dysfunction N52.9 Bladder outlet obstruction N32.0
== END 2023-06-18 14:47 | disposition home or self-care (01) ==
PROVIDERS: PCP Internal Medicine; Visit Provider Urology
DX: E29.1 Testicular hypofunction (principal); N52.9 Male erectile dysfunction, unspecified; N32.0 Bladder-neck obstruction
CPT/HCPCS: 99213

== ENCOUNTER → 2023-06-18 14:09 | Outpatient (BNVA) | payer MEDICARE, MEDICAID, SELFPAY | PROVIDERS: Visit Provider Urology | DX: E29.1 Testicular hypofunction (principal); N52.9 Male erectile dysfunction, unspecified; N32.0 Bladder-neck obstruction; Z79.899 Other long term (current) drug therapy | CPT/HCPCS: 99212 ==

== ENCOUNTER 2023-08-24 12:10 | Outpatient (REF) | payer MEDICARE, MEDICAID, SELFPAY ==
[2023-08-24 13:12] LABS: MANUAL DIFF FLAG NO
[2023-08-24 13:18] LABS: Basophils Absolute Auto 0.1 X10*3/uL (0.0-0.2); Basophils Percent Auto 0.8 % (0-2); Eosinophils Absolute Auto 0.2 X10*3/uL (0.0-0.4); Eosinophils Percent Auto 2.4 % (0-4); Hematocrit 43.4 % (42.0-52.0); Hemoglobin 14.6 g/dl (14.0-18.0); Imm Gran Abs Auto 0.04 X10*3/uL (0.00-0.03); Imm Gran Pct Auto 0.5 % (0.0-0.4); Lymphocytes Absolute Auto 2.9 X10*3/uL (1.2-4.9); Lymphocytes Percent Auto 33.2 % (20-40); Mean Corpuscular HGB Conc 33.6 g/dl (31.0-36.0); Mean Corpuscular Hemoglobin 30.5 pg (27.0-33.0); Mean Corpuscular Volume 90.8 fL (80.0-98.0); Mean Platelet Volume 9.8 fL (9.4-12.4); Monocytes Absolute Auto 0.8 X10*3/uL (0.1-1.2); Neutrophils Absolute Auto 4.7 x10*3/uL (2.0-8.3); Neutrophils Percent Auto 54.1 % (45-73); Platelet Count 201 X10*3/uL (160-400); Red Blood Count 4.78 X10*6/uL (4.60-5.80); Red Cell Distribution Width 13.4 % (11.0-16.0); White Blood Count 8.8 X10*3/uL (4.8-10.8)
[2023-08-24 13:31] LABS: Estimated Average Glucose 123 mg/dL; Hemoglobin A1c % 5.9 % (<6.0)
[2023-08-24 13:35] LABS: Alanine Aminotransferase 23 U/L (0-40); Albumin Level 4.1 g/dL (3.5-5.0); Alkaline Phosphatase 79 U/L (39-117); Anion Gap 8 (12-20); Aspartate Amino Transferase 19 U/L (5-37); Bilirubin Total 0.6 mg/dL (0.0-1.0); Blood Urea Nitrogen 7 mg/dL (9-16); Calcium 9.2 mg/dL (8.4-10.2); Carbon Dioxide 29 mmol/L (22-29); Chloride 107 mmol/L (96-108); Estimated Glomerular Filt Rate > 60; Glucose Random 112 mg/dL (60-115); Potassium 4.2 mmol/L (3.3-5.1); Sodium 140 mmol/L (135-145); Total Protein 7.5 g/dL (6.5-8.0)
== END 2023-08-24 12:11 | disposition home or self-care (01) ==
LOC: HO.10HDL 12:10
PROVIDERS: Visit Provider Internal Medicine
DX: K21.9 Gastro-esophageal reflux disease without esophagitis (principal); I25.10 Atherosclerotic heart disease of native coronary artery without angina pectoris; R73.03 Prediabetes; E78.00 Pure hypercholesterolemia, unspecified
CPT/HCPCS: 36415; 80053; 83036; 85025

== ENCOUNTER 2023-12-17 15:13 | Outpatient (AMB) | payer MEDICARE, MEDICAID, SELFPAY ==
--- NOTE | 2023-12-17 15:15 | A.OFFVIS_ITS ---
Intake Intake Visit Reasons: 6m follow up Intake Note: Patient presents today for a follow-up Meds- Tadalafil Allergies to Antibiotic- Penicillins Blood Thinner- Aspirin Size Tester Required: No Allergies meloxicam [From MOBIC] Allergy (Severe, Verified 12/17/23 15:16) GI BLEED Penicillins Allergy (Severe, Verified 12/17/23 15:16) ANAPHYLAXIS Medication List - Last Reconciled 12/17/23 by Kayden Simmons MD aspirin (Julia Chewable Low Dose Aspirin) 81 mg PO DAILY atorvastatin 40 mg PO DAILY udblvcporb-ymtzdhfcubiow-dxat 50-300-40 mg (Fioricet) 1 cap PO Q6H PRN clopidogrel 75 mg PO DAILY gabapentin 600 mg PO TID metoprolol succinate ER 25 mg PO DAILY omeprazole 20 mg PO BID tadalafil 20 mg PO ONCE PRN 30 days tadalafil 5 mg PO DAILY 90 days HPI HPI Comments History of Present Illness Details Fred is a pleasant male. He is a patient Dr. Hoffman. He seen for the following urologic conditions - hypogonadism - erectile dysfunction - lower urinary tract symptoms Telemedicine Evaluation 15 min Consultation Doximity [place] Video attempted Free T remains in normal range Does smoke marijuana daily which may suppress testosterone Follow-up from 5 mg daily tadalafil 20 mg on demand Good effect Also helping with his lower urinary tract symptoms He knows when he has not taken a dose Hypogonadism Reports prior T therapies Labs - 11/26 TT 246 FT 41, 05/26 T 246 F 39 Erectile dysfunction Progressive Known coronary artery disease On medication for blood pressure, dyslipidemia Trial of daily Cialis with boost Lower urinary tract symptoms Good response to 5 mg daily tadalafil Improved stream and bladder stabilization [facility] Medical History Migraine On beta bj at home Elevated cholesterol Vitamin D deficiency History of depression Thalamic pain syndrome Hx of hypogonadism Neuropathy CAD (coronary artery disease) Osteoarthritis GERD (gastroesophageal reflux disease) Hx of colonic polyps IBS (irritable colon syndrome) Surgical History Hx of colonoscopy History of rectal sphincterotomy History of shoulder surgery History of open reduction and internal fixation (ORIF) procedure History of ankle surgery History of carpal tunnel surgery of left wrist History of tonsillectomy History of heart artery stent Hx of colonoscopy with polypectomy History of esophagogastroduodenoscopy (EGD) Status post angioplasty Family History Father Heart attack Mother Heart attack Social History Household Members: None Are you a primary urgent care physician assistant to a significant other at home: No Do you presently have visiting nurse or other home services: Yes (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) Alcohol intake: current Alcohol intake frequency: does not drink Alcohol type: beer Patient Tobacco Use Status: Never used Tobacco Substance Use Type: Marijuana Current occupational status: disabled Review of Systems Const All systems reviewed & are unremarkable except as noted in HPI and below Reports no additional complaints Resp Reports no additional complaints GI Reports no additional complaints Reports as per HPI Musc Reports no additional complaints Physical Exam Telemedicine evaluation Appropriate responses Regular breathing rate and rhythm HEENT Head: Yes normal to inspection Ears: hearing grossly normal bilaterally Eyes General: appearance normal, both eyes and all related structures Neck Neck: Yes normal visual inspection Chest Chest palpation & inspection: normal inspection of the chest Resp Effort & Inspection: normal respiratory effort and able to speak in complete sentences Assessment & Plan Assessment & Plan (1) Bladder outlet obstruction: Code(s): N32.0 - Bladder-neck obstruction (2) Erectile dysfunction: Code(s): N52.9 - Male erectile dysfunction, unspecified (3) Hypogonadism in male: Code(s): E29.1 - Testicular hypofunction Plan Six-month follow-up labs office Patient Instructions: Imaging studies, laboratory and physical exam results were discussed and reviewed in detail. No major barriers to patient understanding were identified. An opportunity to ask questions regarding the treatment plan was provided. All questions were answered. The patient expressed understanding and agreement with the above treatment plan. The patient is aware they should contact our office by phone for worsening of their current condition or the appearance of new urologic symptoms. Compliance is encouraged with any medications and followup testing that is ordered. It is a privilege to participate in the urologic care of your patient. If you have any questions or concerns regarding treatment for the above conditions, or other urologic issues, please do not hesitate to contact me. The office telephone contact is [phone]. This note is constructed using voice recognition software. While every effort has been made to ensure accuracy epidemiologist errors may have been included. Yours sincerely, Dr Kayden Simmons MD, [facility] - Urology Providers of Expert, Compassionate Care for the Genitourinary System Telehealth Telehealth Location of provider rendering services: practice address Location of patient: address on file Patient Identification confirmed using: Name, : Yes Telehealth method: video Patient verbally consented to treatment: Yes Patient verbally consented to billing insurance company: Yes Patient informed of any privacy concerns related to visit: Yes Coding Level of Care Code Tele Est Pt Level 3 (65277) Diagnoses Bladder outlet obstruction N32.0 Erectile dysfunction N52.9 Hypogonadism in male E29.1
== END 2023-12-17 15:39 | disposition home or self-care (01) ==
LOC: HO.HUSH 15:13
PROVIDERS: PCP Internal Medicine; Visit Provider Urology
DX: N32.0 Bladder-neck obstruction (principal); N52.9 Male erectile dysfunction, unspecified; E29.1 Testicular hypofunction
CPT/HCPCS: 99213

== ENCOUNTER → 2023-12-17 15:13 | Outpatient (BNVA) | payer MEDICARE, MEDICAID, SELFPAY | PROVIDERS: PCP Internal Medicine; Visit Provider Urology ==

== ENCOUNTER 2024-01-31 13:23 | Outpatient (AMB) | payer MEDICARE, MEDICAID, SELFPAY ==
[2024-01-31 13:26] VITALS: BP 120/72; PULSE 68
--- NOTE | 2024-01-31 13:26 | A.OFFVIS_ITS ---
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 Required: No Allergies meloxicam [From MOBIC] Allergy (Severe, Verified 01/31/24 13:27) GI BLEED Penicillins Allergy (Severe, Verified 01/31/24 13:27) ANAPHYLAXIS Medication List - Last Reconciled 01/31/24 by TAMIKO HernandezC aspirin (Julia Chewable Low Dose Aspirin) 81 mg PO DAILY atorvastatin 40 mg PO DAILY clopidogrel 75 mg PO DAILY gabapentin 600 mg PO TID metoprolol succinate ER 25 mg PO DAILY omeprazole 20 mg PO BID tadalafil 20 mg PO ONCE PRN 30 days tadalafil 5 mg PO DAILY 90 days HPI HPI overdue f/up: Details: Yony is a 53-year-old male past medical history of hyperlipidemia, substance abuse, CAD with RCA stent who presents for follow-up. His last prior visit to our office was 12/24/2022. Today he reports that he has been doing well since his last visit. He denies any chest discomfort at rest or with activity. No concerning shortness of breath. No PND, orthopnea or edema. No heart palpitations, lightheadedness, presyncope, syncope, falls. He admits to smoking marijuana most days. He denies any cocaine use. He reports compliance with his medications. No bleeding issues reported. [facility] Medical History Migraine On beta bj at home Elevated cholesterol Vitamin D deficiency History of depression Thalamic pain syndrome Hx of hypogonadism Neuropathy CAD (coronary artery disease) Osteoarthritis GERD (gastroesophageal reflux disease) Hx of colonic polyps IBS (irritable colon syndrome) Surgical History Hx of colonoscopy History of rectal sphincterotomy History of shoulder surgery History of open reduction and internal fixation (ORIF) procedure History of ankle surgery History of carpal tunnel surgery of left wrist History of tonsillectomy History of heart artery stent Hx of colonoscopy with polypectomy History of esophagogastroduodenoscopy (EGD) Status post angioplasty Family History Father Heart attack Mother Heart attack Social History Household Members: None Are you a primary hospice home care coordinator to a significant other at home: No Do you presently have visiting nurse or other home services: Yes ([employer]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) Alcohol intake: current Alcohol intake frequency: does not drink Alcohol type: beer Patient Tobacco Use Status: Never used Tobacco Substance Use Type: Marijuana Current occupational status: disabled Review of Systems Const All systems reviewed & are unremarkable except as noted in HPI and below ENT Denies dizziness Card Denies chest pain, Denies chest pain at rest, Denies chest pain with activity, Denies rapid heart rate, Denies pedal edema, Denies edema, Denies leg edema, Denies lightheadedness, Denies palpitations, Denies dyspnea, Denies dyspnea on exertion and Denies orthopnea Resp Denies cough, Denies dyspnea and Denies dyspnea on exertion GI Denies hematochezia and Denies change in stool character Musc Denies abnormal gait, Denies limited range of motion, Denies muscle cramps, Denies muscle weakness, Denies numbness, Denies radiating pain into limb, Denies stiffness and Denies tingling Neuro Denies abnormal gait, Denies dizziness, Denies numbness and Denies tingling Endo Denies palpitations Physical Exam Vital Signs: Last Vital Signs Pulse 68 01/31/24 13:26 BP 120/72 01/31/24 13:26 Const General: cooperative, healthy appearing, comfortable and no acute distress Orientation/consciousness: patient oriented x3 Neck Neck: Yes normal visual inspection and Yes no JVD Resp Effort & Inspection: normal respiratory effort Auscultation: clear to auscultation bilaterally, no crackles, no rales, no rhonchi and no wheezes Cardio Jugular venous distension: no JVD Rate: regular rate Rhythm: regular rhythm Heart sounds: S1 normal heart sound present, S2 normal heart sound present, no murmurs and no rubs Skin General skin exam: no rashes or lesions noted Neuro General: patient oriented x3 Extrem General: Yes normal to inspection, No no pedal edema and No calf tenderness Psych Appearance: grossly normal Mental Status: mental status grossly normal Speech and movement: Normal speech and movement present Office Procedures EKG Details: Today, read by me, Normal sinus rhythm, no acute ST and T-wave abnormalities, rate 68, QTC 429 milliseconds [id number], Complete Assessment & Plan Assessment & Plan (1) CAD (coronary artery disease): Comment: Stable Code(s): I25.10 - Atherosclerotic heart disease of [place] coronary artery without angina pectoris Category: Medical Qualifiers: Associated angina: without angina Coronary Disease-Associated Artery/Lesion type: [place] artery [place] vs. transplanted heart: [place] heart Qualified Code(s): I25.10 - Atherosclerotic heart disease of [place] coronary artery without angina pectoris Plan: Prior reports of chest discomfort with radiation to his arms. History of abnormal stress test showing inferior and posterior perfusion defect. History of cocaine and marijuana use. He did have a cardiac catheterization 06/24/2020 which showed LAD 50% stenosis, distal RCA 99% stenosis treated with stent across the PL to the PDA. He would done well since that time and remained on dual antiplatelet therapy. Last echocardiogram done 05/30/2020 showed EF 60-65%, no valve abnormalities and no regional wall motion abnormalities. Last visit here was 12/24/2022. Today he denies any recent chest chest discomfort or arm symptoms. He reports good activity tolerance. He denies any cocaine use but admits to marijuana daily. He reports compliance with his medications. He has been on Plavix since his stent placement in 1999. Informed him that Plavix could be stopped at this time however he states he would be fearful to stop it and wants to continue its use. He denies any bleeding issues. Based on last cardiac catheterization he did have a 50% lad stenosis in addition to the stented RCA. Will have him continue Plavix at this time. He can be held as needed for surgical procedures or if he has any bleeding issues. Continue aspirin, atorvastatin, metoprolol. Cardiac risk factor modification reviewed with him including weight loss, increasing physical activity as tolerated, smoking cessation. Will check labs including CMP and CBC. (2) History of heart artery stent: Comment: 06/[address] to right PDA- On Plavix Code(s): Z95.5 - Presence of coronary angioplasty implant and graft Category: Surgical Plan: As above (3) Elevated cholesterol: Code(s): E78.00 - Pure hypercholesterolemia, unspecified Category: Medical Plan: [place] LDL goal less than 70. Last labs in our system 04/21/2021 showed LDL 86. Will enter orders for fasting lipid profile. Patient informed of the need to obtain this blood work. At present will continue on atorvastatin 40 mg daily. Plan Time spent on chart review, documentation, interview and assessment Orders: Orders Comprehensive Met. Panel Today I25.10 - Atherosclerotic heart disease of [place] coronary artery without angina pectoris, Z95.5 - Presence of coronary angioplasty implant and graft Lipid Panel Today I25.10 - Atherosclerotic heart disease of [place] coronary artery without angina pectoris, Z95.5 - Presence of coronary angioplasty implant and graft Complete Blood Count Auto Diff Today I25.10 - Atherosclerotic heart disease of [place] coronary artery without angina pectoris, Z95.5 - Presence of coronary angioplasty implant and graft Coding Level of Care Code Est Pt Level 4 (11660) Diagnoses Coronary artery disease involving [place] coronary artery of [place] heart without angina pectoris I25.10 Associated angina: without angina Coronary Disease-Associated Artery/Lesion type: [place] artery [place] vs. transplanted heart: [place] heart History of heart artery stent Z95.5 Elevated cholesterol E78.00 CPT Codes EKG - CPT: [id number], Complete ([id number]) Time Spent (min) 28
== END 2024-01-31 14:10 | disposition home or self-care (01) ==
PROVIDERS: PCP Internal Medicine; Visit Provider Nurse Practitioner Family
DX: I25.10 Atherosclerotic heart disease of native coronary artery without angina pectoris (principal); Z95.5 Presence of coronary angioplasty implant and graft; E78.00 Pure hypercholesterolemia, unspecified
CPT/HCPCS: 93010; 99214

== ENCOUNTER → 2024-01-31 13:23 | Outpatient (BNVA) | payer MEDICARE, MEDICAID, SELFPAY | PROVIDERS: PCP Internal Medicine; Visit Provider Nurse Practitioner Family | DX: I25.10 Atherosclerotic heart disease of native coronary artery without angina pectoris (principal); E78.00 Pure hypercholesterolemia, unspecified; Z95.5 Presence of coronary angioplasty implant and graft | CPT/HCPCS: 93005; 99212 ==

== ENCOUNTER 2024-03-10 11:29 | Outpatient (REF) | payer MEDICARE, MEDICAID, SELFPAY ==
[2024-03-10 13:24] LABS: MANUAL DIFF FLAG NO
[2024-03-10 13:32] LABS: Basophils Absolute Auto 0.1 X10*3/uL (0.0-0.2); Basophils Percent Auto 0.9 % (0-2); Eosinophils Absolute Auto 0.2 X10*3/uL (0.0-0.4); Hematocrit 38.9 % (42.0-52.0); Hemoglobin 13.7 g/dl (14.0-18.0); Imm Gran Abs Auto 0.06 X10*3/uL (0.00-0.03); Imm Gran Pct Auto 0.8 % (0.0-0.4); Lymphocytes Absolute Auto 2.6 X10*3/uL (1.2-4.9); Lymphocytes Percent Auto 33.1 % (20-40); Mean Corpuscular HGB Conc 35.2 g/dl (31.0-36.0); Mean Corpuscular Hemoglobin 31.9 pg (27.0-33.0); Mean Corpuscular Volume 90.7 fL (80.0-98.0); Mean Platelet Volume 9.7 fL (9.4-12.4); Monocytes Absolute Auto 0.6 X10*3/uL (0.1-1.2); Monocytes Percent Auto 8.2 % (2-11); Neutrophils Absolute Auto 4.3 x10*3/uL (2.0-8.3); Platelet Count 198 X10*3/uL (160-400); Red Blood Count 4.29 X10*6/uL (4.60-5.80); Red Cell Distribution Width 12.9 % (11.0-16.0); White Blood Count 7.9 X10*3/uL (4.8-10.8)
[2024-03-10 13:43] LABS: Alanine Aminotransferase 35 U/L (0-40); Alkaline Phosphatase 78 U/L (39-117); Anion Gap 10 (12-20); Aspartate Amino Transferase 21 U/L (5-37); Bilirubin Total 0.5 mg/dL (0.0-1.0); Blood Urea Nitrogen 7 mg/dL (9-16); Calcium 9.2 mg/dL (8.4-10.2); Carbon Dioxide 26 mmol/L (22-29); Chloride 110 mmol/L (96-108); Cholesterol 120 mg/dL (<200); Estimated Glomerular Filt Rate > 60; Glucose Random 159 mg/dL (60-115); HDL Cholesterol 31 mg/dL (>40); LDL Cholesterol Calculated 66 mg/dL (<100); Potassium 3.7 mmol/L (3.3-5.1); Sodium 142 mmol/L (135-145); Total Protein 7.2 g/dL (6.5-8.0); Triglycerides 117 mg/dL (<150)
== END 2024-03-10 11:30 | disposition home or self-care (01) ==
LOC: HO.10HDL 11:29
PROVIDERS: Visit Provider Nurse Practitioner Family
DX: I25.10 Atherosclerotic heart disease of native coronary artery without angina pectoris (principal); Z95.5 Presence of coronary angioplasty implant and graft
CPT/HCPCS: 36415; 80053; 80061; 85025

== ENCOUNTER 2024-03-15 12:36 | Outpatient (AMB) | payer MEDICARE, MEDICAID, SELFPAY ==
--- NOTE | 2024-03-15 12:35 | A.OFFVIS_ITS ---
Vital Signs 03/15/24 12:36 Weight 272 lb 0.807 oz BP 118/68 Blood Pressure Location Rt brachial Position Sitting Pulse 82 Pulse Source Pulse Oximeter Pulse Oximetry (%) 96 Oxygen Delivery Method Room Air Intake Visit Reasons: Ring Finger swollen Intake Note: Returning patient, last seen by Dr. Kahn Nov, 2020, presents to office today for evaluation of ring finger swelling. Pt reports pain and swelling in left thumb. Had the same issue on right thumb, saw hand surgeon. Surgery was done. Pain/swelling began approx: Neonatal Intensive Care Nurse Required: No Accompanied by: Self / Same As Patient Allergies meloxicam [From MOBIC] Allergy (Severe, Verified 03/17/24 13:56) GI BLEED Penicillins Allergy (Severe, Verified 03/17/24 13:56) ANAPHYLAXIS HPI Comments Details: Mr. Justice 50yoM presents for follow-up of hand pain. Last seen in November 2020. Patient had surgery on the right thumb and has no more pain from that thumb. Hoever, he continues to report pain at the base of his left thumb as well as pain in the left wrist. Pain in his left thumb is severe and he states that he cannot move his thumb very well. The same process that was experienced with the right before surgery. He can occasionally get swelling in his left wrist but states this has not happened often. He wants an injection in the left thumb as he is not ready to do surgery at this time. Nov 2020 Dr. Kahn: 50yoM presents for follow-up of hand pain. Last seen in October 2020 via telemedicine. Presents today in the office for follow-up visit. Patient continues to report pain at the base of his right thumb as well as pain in the left wrist. Pain in his right thumb is severe and he states that he cannot move his thumb very well. He can occasionally get swelling in his left wrist but states this has not happened in some time. Patient was found to have coronary artery disease in 2019 and did receive a drug-eluting stent. [facility] Medical History (Updated 03/18/24 @ 17:24 by GARRY RodriguezP-) Osteoarthritis of carpometacarpal joint of left thumb Laceration of skin of right knee without complication Migraine On beta bj at home Elevated cholesterol Vitamin D deficiency History of depression Thalamic pain syndrome Hx of hypogonadism Neuropathy CAD (coronary artery disease) Osteoarthritis GERD (gastroesophageal reflux disease) Hx of colonic polyps IBS (irritable colon syndrome) Surgical History Hx of colonoscopy History of rectal sphincterotomy History of shoulder surgery History of open reduction and internal fixation (ORIF) procedure History of ankle surgery History of carpal tunnel surgery of left wrist History of tonsillectomy History of heart artery stent Hx of colonoscopy with polypectomy History of esophagogastroduodenoscopy (EGD) Status post angioplasty Family History Father Heart attack Mother Heart attack Social History Household Members: None Are you a primary care team coordinator scheduler to a significant other at home: No Do you presently have visiting nurse or 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 External ear normal. NOSE/SINUS:? Airflow through both nares, no nasal discharge, no bleeding THROAT:? Oral mucosa moist, no ulcerations NECK:? No thyromegaly or masses, no adenopathy, trachea midline. HEART:? Regular rhythm, S1-S2 heard, no murmurs, rubs or gallops. LUNG:? Clear to percussion and auscultation EXTREMITIES:? No edema, no calf tenderness, normal peripheral pulses. NEURO:? Oriented and alert x3.? No focal weakness.? Reflexes symmetric.? Gait normal. SKIN:? There are no skin lesions evident. No objective signs of Raynaud's phenomenon. JOINT EXAM: Cervical Spine:.? Full range of motion without pain; no tenderness. Thoracic Spine:.? No scoliosis.? No tenderness on palpation. Lumbar Spine:.? Alignment normal.? Full range of motion without pain, no tenderness. Chest Wall:.? No tenderness, swelling, increased warmth or erythema. Hands:.? Normal pain-free range of motion with left CMC tenderness, my swelling but no increased warmth or erythema. 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 Wrists:.? Normal pain-free range of motion without tenderness, swelling, increased warmth or erythema. Elbows:. Normal pain-free range of motion without tenderness, swelling, increased warmth or erythema. Shoulders:.?? Full range of motion without pain. No tenderness, weakness, swelling, increased warmth or erythema. Hips:.? Full range of motion without pain. Hip bursa:.? No tenderness. Knees:.?? Normal pain-free range of motion without tenderness, swelling, increased warmth or erythema.? There is no effusion or crepitation Ankles:.? Normal pain-free range of motion without tenderness, swelling, increased warmth or erythema. Feet:.? Normal pain-free range of motion without tenderness, swelling, increased warmth or erythema. Tender points:? No tenderness to digital palpation at the occiput, trapezius, second rib, lateral epicondyle, knees, greater trochanter and gluteal area bilaterally. Results Reviewed Results Reviewed: Laboratory Tests 03/10/24 03/16/24 11:35 11:42 WBC 7.9 RBC 4.29 L Hgb 13.7 L Hct 38.9 L ESR 11 Creatinine 0.76 0.75 Uric Acid 4.7 Calcium 9.2 AST 21 18 ALT 35 28 C-Reactive Protein 0.15 Total Protein 7.2 Assessment & Plan Assessment & Plan (1) Osteoarthritis of carpometacarpal joint of right thumb: Code(s): M18.11 - Unilateral primary osteoarthritis of first carpometacarpal joint, right hand Category: Medical Qualifiers: Osteoarthritis type: primary Qualified Code(s): M18.11 - Unilateral primary osteoarthritis of first carpometacarpal joint, right hand (2) Osteoarthritis of carpometacarpal joint of left thumb: Code(s): M18.12 - Unilateral primary osteoarthritis of first carpometacarpal joint, left hand Category: Medical Qualifiers: Osteoarthritis type: primary Qualified Code(s): M18.12 - Unilateral primary osteoarthritis of first carpometacarpal joint, left hand (3) Primary osteoarthritis involving multiple joints: Code(s): M89.49 - Other hypertrophic osteoarthropathy, multiple sites Category: Medical Plan #Hand OA/multiple joints: Patient with OA of hand and multiple joints. He has had tendon wrap surgery with plate in his right thumb because of severe osteoarthritis. Now he has experiencing the same symptoms in the left. He desires the injection. He has not been in the office since 2021. So we will obtain labs and x-rays and have him back for the injection Spent 25 minutes reviewing history, evaluating patient and documenting Follow-up in 2 days Orders: Orders Erythrocyte Sedimentation Rate 03/16/24 M18.11 - Unilateral primary osteoarthritis of first carpometacarpal joint, right hand, S81.011A - Laceration without foreign body, right knee, initial encounter Immunofixation Pnl, Serum 03/16/24 M18.11 - Unilateral primary osteoarthritis of first carpometacarpal joint, right hand, S81.011A - Laceration without foreign body, right knee, initial encounter C Reactive Protein 03/16/24 M18.11 - Unilateral primary osteoarthritis of first carpometacarpal joint, right hand, S81.011A - Laceration without foreign body, right knee, initial encounter Creatine Kinase Total 03/16/24 M18.11 - Unilateral primary osteoarthritis of first carpometacarpal joint, right hand, S81.011A - Laceration without foreign body, right knee, initial encounter Immunoglobulins,IgG IgA IgM 03/16/24 M18.11 - Unilateral primary osteoarthritis of first carpometacarpal joint, right hand, S81.011A - Laceration without foreign body, right knee, initial encounter Protein Electrophoresis, Serum 03/16/24 M18.11 - Unilateral primary osteoarthritis of first carpometacarpal joint, right hand, S81.011A - Laceration without foreign body, right knee, initial encounter Uric Acid 03/16/24 M18.11 - Unilateral primary osteoarthritis of first carpometacarpal joint, right hand, S81.011A - Laceration without foreign body, right knee, initial encounter XR hand LT 2V 03/16/24 M18.11 - Unilateral primary osteoarthritis of first carpometacarpal joint, right hand, M18.12 - Unilateral primary osteoarthritis of first carpometacarpal joint, left hand Coding Level of Care Code Est Pt Level 3 (84736) Complex EM visit Add On G2211 Diagnoses Primary osteoarthritis of first carpometacarpal joint of right hand M18.11 Osteoarthritis type: primary Primary osteoarthritis of first carpometacarpal joint of left hand M18.12 Osteoarthritis type: primary Primary osteoarthritis involving multiple joints M89.49
[2024-03-15 12:36] VITALS: BP 118/68; PULSE 82; O2SAT 96
== END 2024-03-15 13:12 | disposition home or self-care (01) ==
PROVIDERS: PCP Internal Medicine; Visit Provider Nurse Practitioner Family
DX: M18.0 Bilateral primary osteoarthritis of first carpometacarpal joints (principal); M89.49 Other hypertrophic osteoarthropathy, multiple sites
CPT/HCPCS: 99213; G2211

== ENCOUNTER → 2024-03-15 12:36 | Outpatient (BNVA) | payer MEDICARE, MEDICAID, SELFPAY | PROVIDERS: PCP Internal Medicine; Visit Provider Nurse Practitioner Family | DX: M18.11 Unilateral primary osteoarthritis of first carpometacarpal joint, right hand (principal); M18.12 Unilateral primary osteoarthritis of first carpometacarpal joint, left hand; M89.49 Other hypertrophic osteoarthropathy, multiple sites | CPT/HCPCS: 99212 ==

== ENCOUNTER 2024-03-16 11:34 | Outpatient (REF) | payer MEDICARE, MEDICAID, SELFPAY ==
--- NOTE | ~2024-03-16 | XR_ITS ---
EXAMINATION: XR HAND, LEFT CLINICAL INFORMATION: Pain and swelling of 1 year's duration; unilateral primary osteoarthritis of the first carpometacarpal joint. COMPARISON: None available. TECHNIQUE: PA, lateral, and oblique views of the left hand. FINDINGS: Bony alignment and mineralization are normal. There is a neutral ulnar variance There is mild osteoarthritic change of the interphalangeal joint of the thumb, the first metacarpophalangeal joint and the fifth distal interphalangeal joint. No fracture or dislocation is seen. The proximal and distal carpal rows are intact. No focal bone erosion is seen. This no focal soft tissue swelling, gas or foreign body. XR/XR hand LT 2V IMPRESSION: 1. There is mild osteoarthritic change of the interphalangeal joint of the thumb, the first metacarpophalangeal joint and the fifth distal interphalangeal joint. 2. No fracture or dislocation is seen. 3. There is no abnormal bone erosion.
--- NOTE | ~2024-03-16 | XR_ITS ---
EXAMINATION: XR CHEST 2 VIEWS CLINICAL INFORMATION: Benign prostatic hypertrophy; question lesion; hemoptysis and wheezing of 5 days' duration. COMPARISON: Chest radiograph dated 07/26/2015. TECHNIQUE: Frontal and lateral views of the chest were obtained. FINDINGS: The heart, great vessels, pulmonary vasculature and mediastinum are normal. The lungs show no focal infiltrate, effusion or pneumothorax. There is no acute osseous abnormality. A spinal stimulator device is noted. XR/XR chest 2V IMPRESSION: No active cardiopulmonary disease.
[2024-03-16 13:11] LABS: MANUAL DIFF FLAG NO
[2024-03-16 13:24] LABS: Basophils Absolute Auto 0.1 X10*3/uL (0.0-0.2); Basophils Percent Auto 0.8 % (0-2); Eosinophils Absolute Auto 0.1 X10*3/uL (0.0-0.4); Eosinophils Percent Auto 1.5 % (0-4); Hematocrit 40.7 % (42.0-52.0); Hemoglobin 14.1 g/dl (14.0-18.0); Imm Gran Abs Auto 0.04 X10*3/uL (0.00-0.03); Imm Gran Pct Auto 0.5 % (0.0-0.4); Lymphocytes Absolute Auto 2.4 X10*3/uL (1.2-4.9); Lymphocytes Percent Auto 32.8 % (20-40); Mean Corpuscular HGB Conc 34.6 g/dl (31.0-36.0); Mean Corpuscular Hemoglobin 31.5 pg (27.0-33.0); Mean Corpuscular Volume 90.8 fL (80.0-98.0); Mean Platelet Volume 9.8 fL (9.4-12.4); Monocytes Absolute Auto 0.6 X10*3/uL (0.1-1.2); Monocytes Percent Auto 8.7 % (2-11); Neutrophils Absolute Auto 4.1 x10*3/uL (2.0-8.3); Neutrophils Percent Auto 55.7 % (45-73); Platelet Count 188 X10*3/uL (160-400); Red Blood Count 4.48 X10*6/uL (4.60-5.80); White Blood Count 7.3 X10*3/uL (4.8-10.8)
[2024-03-16 13:39] LABS: Alanine Aminotransferase 28 U/L (0-40); Albumin Level 4.1 g/dL (3.5-5.0); Alkaline Phosphatase 80 U/L (39-117); Anion Gap 12 (12-20); Aspartate Amino Transferase 18 U/L (5-37); Bilirubin Total 0.6 mg/dL (0.0-1.0); Blood Urea Nitrogen 6 mg/dL (9-16); Carbon Dioxide 24 mmol/L (22-29); Chloride 106 mmol/L (96-108); Estimated Average Glucose 120 mg/dL; Estimated Glomerular Filt Rate > 60; Glucose Random 151 mg/dL (60-115); Hemoglobin A1c % 5.8 % (<6.0); Potassium 4.1 mmol/L (3.3-5.1); Sodium 138 mmol/L (135-145); Total Protein 7.3 g/dL (6.5-8.0)
[2024-03-16 13:43] LABS: C Reactive Protein 0.15 mg/dL (< or = 0.50); Uric Acid 4.7 mg/dL (3.4-7.0)
[2024-03-16 13:59] LABS: Prostate Specific Antigen 0.85 ng/mL (<0.05-4.0)
[2024-03-16 14:09] LABS: Erythrocyte Sedimentation Rate 11 MM/HR (0-15)
[2024-03-17 20:58] LABS: Prot Elec - Alpha1 0.3 g/dL (0.2-0.3); Prot Elec - Alpha2 0.7 g/dL (0.5-0.9); Prot Elec - Beta 1 0.4 g/dL (0.4-0.6); Prot Elec - Beta 2 0.4 g/dL (0.2-0.5); Prot Elec - Gamma 1.3 g/dL (0.8-1.7); Prot Elec - Total Protein 7.1 g/dL (6.1-8.1)
[2024-03-20 12:34] LABS: IgA 302 mg/dL (47-310); IgG 1376 mg/dL (600-1640); IgM 110 mg/dL (50-300)
== END 2024-03-16 11:35 | disposition home or self-care (01) ==
LOC: HO.10HDL 11:34
PROVIDERS: Urology; Referring Provider Internal Medicine; Visit Provider Nurse Practitioner Family
DX: M18.11 Unilateral primary osteoarthritis of first carpometacarpal joint, right hand (principal); M18.12 Unilateral primary osteoarthritis of first carpometacarpal joint, left hand; N32.0 Bladder-neck obstruction; S81.011A Laceration without foreign body, right knee, initial encounter; I25.10 Atherosclerotic heart disease of native coronary artery without angina pectoris; N40.0 Benign prostatic hyperplasia without lower urinary tract symptoms; K21.9 Gastro-esophageal reflux disease without esophagitis; D64.9 Anemia, unspecified; R73.03 Prediabetes; X58.XXXA Exposure to other specified factors, initial encounter; Y93.9 Activity, unspecified; Y92.9 Unspecified place or not applicable; Y99.9 Unspecified external cause status; Z12.5 Encounter for screening for malignant neoplasm of prostate
CPT/HCPCS: 36415; 71046; 73120; 80053; 82550; 82784; 83036; 84153; 84165; 84550; 85025; 85652; 86140; 86334

== ENCOUNTER 2024-03-17 13:36 | Outpatient (AMB) | payer MEDICARE, MEDICAID, SELFPAY ==
[2024-03-17 13:55] VITALS: BP 118/60; PULSE 84; O2SAT 94
--- NOTE | 2024-03-17 13:55 | MHC.OFFVIS ---
Vital Signs 03/17/24 13:55 Weight 273 lb 9.498 oz BP 118/60 Blood Pressure Location Rt brachial Position Sitting Pulse 84 Pulse Source Pulse Oximeter Pulse Oximetry (%) 94 Oxygen Delivery Method Room Air Intake Visit Reasons: lt thumb pain/inj Intake Note: Pt presents in office today for left thumb cortisone injection. 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 Engineer Required: No Accompanied by: Self / Same As Patient Allergies meloxicam [From MOBIC] Allergy (Severe, Verified 03/17/24 13:56) GI BLEED Penicillins Allergy (Severe, Verified 03/17/24 13:56) ANAPHYLAXIS HPI Comments Details: patient here for left thumb injection PFSH Medical History (Updated 03/15/24 @ 13:03 by TAYLOR Rodriguez) Osteoarthritis of carpometacarpal joint of left thumb Laceration of skin of right knee without complication Migraine On beta bj at home Elevated cholesterol Vitamin D deficiency History of depression Thalamic pain syndrome Hx of hypogonadism Neuropathy CAD (coronary artery disease) Osteoarthritis GERD (gastroesophageal reflux disease) Hx of colonic polyps IBS (irritable colon syndrome) Surgical History Hx of colonoscopy History of rectal sphincterotomy History of shoulder surgery History of open reduction and internal fixation (ORIF) procedure History of ankle surgery History of carpal tunnel surgery of left wrist History of tonsillectomy History of heart artery stent Hx of colonoscopy with polypectomy History of esophagogastroduodenoscopy (EGD) Status post angioplasty Family History Father Heart attack Mother Heart attack Social History Household Members: None Are you a primary child care lead teacher to a significant other at home: No Do you 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 have 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) Alcohol intake: current Alcohol intake frequency: does not drink Alcohol type: beer Patient Tobacco Use Status: Never used Tobacco Substance Use Type: Marijuana Current occupational status: disabled Review of Systems Const All systems reviewed & are unremarkable except as noted in HPI and below Physical Exam Vital Signs: Last Vital Signs Pulse 84 03/17/24 13:55 BP 118/60 03/17/24 13:55 Pulse Ox 94 03/17/24 13:55 Oxygen Delivery Method Room Air 03/17/24 13:55 Office Procedures Joint Injection/Drain Joint Injection/Drain Primary Site: left thumb Injected: 20 mg of, Kenalog, with 0.5 mL of and 1% plain lidocaine Approach Used: other (Lateral CMC joint) Procedure: The patient tolerated the procedure well Coding - Small Joint Procedure code (CPT) selection complete Assessment & Plan Assessment & Plan (1) Osteoarthritis of carpometacarpal joint of left thumb: Code(s): M18.12 - Unilateral primary osteoarthritis of first carpometacarpal joint, left hand Category: Medical Plan Inject Left CMC joint. Orders: Orders AMB Joint Injection/Aspiration Today M18.12 - Unilateral primary osteoarthritis of first carpometacarpal joint, left hand Coding Level of Care Code Procedure Only Diagnoses Osteoarthritis of carpometacarpal joint of left thumb M18.12 CPT Codes Coding - 88114 - Small joint: 62263 - Small Joint ([id number])
== END 2024-03-17 14:30 | disposition home or self-care (01) ==
PROVIDERS: PCP Internal Medicine; Visit Provider Nurse Practitioner Family
DX: M18.12 Unilateral primary osteoarthritis of first carpometacarpal joint, left hand (principal)
CPT/HCPCS: 20600

== ENCOUNTER → 2024-03-17 13:36 | Outpatient (BNVA) | payer MEDICARE, MEDICAID, SELFPAY | PROVIDERS: PCP Internal Medicine; Visit Provider Nurse Practitioner Family | DX: M18.12 Unilateral primary osteoarthritis of first carpometacarpal joint, left hand (principal) | CPT/HCPCS: 20600; J3301 ==

== ENCOUNTER 2024-07-28 12:56 | Outpatient (AMB) | payer MEDICARE, MEDICAID, SELFPAY ==
--- NOTE | 2024-07-28 12:58 | MHC.OFFVIS ---
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 He is a patient Dr. Hoffman. He seen for the following urologic conditions - hypogonadism - erectile dysfunction - lower urinary tract symptoms 6m f/u Telemedicine Evaluation 15 min Consultation [employer] [place] Video attempted Free T remains in normal range Does smoke marijuana daily which may suppress testosterone Follow-up from 5 mg daily tadalafil - 20 mg on demand Good effect Also helping with his lower urinary tract symptoms He knows when he has not taken a dose Six-month follow-up nurse-practitioner for ED Hypogonadism Reports prior T therapies Labs - 11/26 TT 246 FT 41, 05/26 T 246 F 39 Erectile dysfunction Progressive Known coronary artery disease On medication for blood pressure, dyslipidemia Trial of daily Cialis with boost PSA - 03/27 0.85 Lower urinary tract symptoms Good response to 5 mg daily tadalafil Improved stream and bladder stabilization PFSH Medical History Osteoarthritis of carpometacarpal joint of left thumb Laceration of skin of right knee without complication Migraine On beta bj at home Elevated cholesterol Vitamin D deficiency History of depression Thalamic pain syndrome Hx of hypogonadism Neuropathy CAD (coronary artery disease) Osteoarthritis GERD (gastroesophageal reflux disease) Hx of colonic polyps IBS (irritable colon syndrome) Surgical History Hx of colonoscopy History of rectal sphincterotomy History of shoulder surgery History of open reduction and internal fixation (ORIF) procedure History of ankle surgery History of carpal tunnel surgery of left wrist History of tonsillectomy History of heart artery stent Hx of colonoscopy with polypectomy History of esophagogastroduodenoscopy (EGD) Status post angioplasty Family History Father Heart attack Mother Heart attack Social History Household Members: None Are you a primary respiratory care program director to a significant other at home: No Do you presently have visiting nurse or 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) Alcohol intake: current Alcohol intake frequency: does not drink Alcohol type: beer Patient Tobacco Use Status: Never used Tobacco Substance Use Type: Marijuana Current occupational status: disabled Review of Systems Const All systems reviewed & are unremarkable except as noted in HPI and below Reports no additional complaints Resp Reports no additional complaints GI Reports no additional complaints Reports as per HPI Musc Reports no additional complaints Physical Exam Telemedicine evaluation Appropriate responses Regular breathing rate and rhythm HEENT Head: Yes normal to inspection Ears: hearing grossly normal bilaterally Eyes General: appearance normal, both eyes and all related structures Neck Neck: Yes normal visual inspection Chest Chest palpation & inspection: normal inspection of the chest Resp Effort & Inspection: normal respiratory effort and able to speak in complete sentences Telehealth Telehealth Telehealth Platform: [employer] Location of provider rendering services: practice address Location of patient: address on file Patient Identification confirmed using: Name, : Yes Telehealth method: video Patient verbally consented to treatment: Yes Patient verbally consented to billing insurance company: Yes Patient informed of any privacy concerns related to visit: Yes Minutes spent on Phone/Video with Pt.: 15 Assessment & Plan Assessment & Plan (1) Erectile dysfunction: Code(s): N52.9 - Male erectile dysfunction, unspecified Category: Medical (2) Bladder outlet obstruction: Code(s): N32.0 - Bladder-neck obstruction Category: Medical Plan Continue current medications Six-month follow-up Patient Instructions: Imaging studies, laboratory and physical exam results were discussed and reviewed in detail. No major barriers to patient understanding were identified. An opportunity to ask questions regarding the treatment plan was provided. All questions were answered. The patient expressed understanding and agreement with the above treatment plan. The patient is aware they should contact our office by phone for worsening of their current condition or the appearance of new urologic symptoms. Compliance is encouraged with any medications and followup testing that is ordered. It is a privilege to participate in the urologic care of your patient. If you have any questions or concerns regarding treatment for the above conditions, or other urologic issues, please do not hesitate to contact me. The office telephone contact is [phone]. This note is constructed using voice recognition software. While every effort has been made to ensure accuracy build engineer errors may have been included. Yours sincerely, Dr Kayden Simmons MD, [facility] - Urology Providers of Expert, Compassionate Care for the Genitourinary System Coding Level of Care Code Tele Est Pt Level 3 (03624) Diagnoses Erectile dysfunction N52.9 Bladder outlet obstruction N32.0
== END 2024-07-28 13:52 | disposition home or self-care (01) ==
LOC: HO.HUSH 12:56
PROVIDERS: PCP Internal Medicine; Visit Provider Urology
DX: N52.9 Male erectile dysfunction, unspecified (principal); N32.0 Bladder-neck obstruction
CPT/HCPCS: 99213

== ENCOUNTER → 2024-07-28 12:56 | Outpatient (BNVA) | payer MEDICARE, MEDICAID, SELFPAY | PROVIDERS: PCP Internal Medicine; Visit Provider Urology ==

== ENCOUNTER 2024-09-07 11:34 | Outpatient (REF) | payer MEDICARE, MEDICAID, SELFPAY ==
[2024-09-07 12:58] LABS: MANUAL DIFF FLAG NO
[2024-09-07 13:07] LABS: Basophils Absolute Auto 0.1 X10*3/uL (0.0-0.2); Basophils Percent Auto 0.7 % (0-2); Eosinophils Absolute Auto 0.2 X10*3/uL (0.0-0.4); Eosinophils Percent Auto 1.9 % (0-4); Hematocrit 44.4 % (42.0-52.0); Hemoglobin 15.2 g/dl (14.0-18.0); Imm Gran Abs Auto 0.05 X10*3/uL (0.00-0.03); Imm Gran Pct Auto 0.5 % (0.0-0.4); Lymphocytes Absolute Auto 3.1 X10*3/uL (1.2-4.9); Lymphocytes Percent Auto 31.7 % (20-40); Mean Corpuscular HGB Conc 34.2 g/dl (31.0-36.0); Mean Corpuscular Hemoglobin 31.3 pg (27.0-33.0); Mean Corpuscular Volume 91.5 fL (80.0-98.0); Mean Platelet Volume 9.8 fL (9.4-12.4); Monocytes Absolute Auto 0.8 X10*3/uL (0.1-1.2); Monocytes Percent Auto 7.6 % (2-11); Neutrophils Absolute Auto 5.7 x10*3/uL (2.0-8.3); Neutrophils Percent Auto 57.6 % (45-73); Platelet Count 203 X10*3/uL (160-400); Red Blood Count 4.85 X10*6/uL (4.60-5.80); Red Cell Distribution Width 13.2 % (11.0-16.0); White Blood Count 9.9 X10*3/uL (4.8-10.8)
[2024-09-07 13:08] LABS: Estimated Average Glucose 123 mg/dL; Hemoglobin A1C 156.3243 umol/L; Hemoglobin A1c % 5.9 % (<6.0)
[2024-09-07 13:22] LABS: Alanine Aminotransferase 33 U/L (0-40); Albumin Level 4.3 g/dL (3.5-5.0); Alkaline Phosphatase 81 U/L (39-117); Anion Gap 9 (12-20); Aspartate Amino Transferase 28 U/L (5-37); Bilirubin Total 0.7 mg/dL (0.0-1.0); Blood Urea Nitrogen 7 mg/dL (9-16); Calcium 9.4 mg/dL (8.4-10.2); Carbon Dioxide 29 mmol/L (22-29); Chloride 107 mmol/L (96-108); Estimated Glomerular Filt Rate > 60; Glucose Random 112 mg/dL (60-115); Potassium 4.2 mmol/L (3.3-5.1); Sodium 141 mmol/L (135-145); Total Protein 7.8 g/dL (6.5-8.0)
[2024-09-07 13:30] LABS: Microalbum/Creatinine Ratio Ur 13.4 ug/mg cr (<30)
== END 2024-09-07 11:35 | disposition home or self-care (01) ==
LOC: HO.10HDL 11:34
PROVIDERS: Visit Provider Internal Medicine
DX: R73.03 Prediabetes (principal); I12.9 Hypertensive chronic kidney disease with stage 1 through stage 4 chronic kidney disease, or unspecified chronic kidney disease; N18.9 Chronic kidney disease, unspecified
CPT/HCPCS: 36415; 80053; 82043; 82570; 83036; 85025

== ENCOUNTER 2025-01-26 13:53 | Outpatient (AMB) | payer MEDICARE, MEDICAID, SELFPAY ==
--- NOTE | 2025-01-26 13:57 | A.OFFVIS_ITS ---
Intake Visit Reasons: 6m follow up Intake Note: Patient is present for 6M F/U Urology Medication:TADALAFIL Antibiotic Allergy:PENICILLINS Blood Thinner:ASPIRIN Park Guide Required: No Allergies meloxicam [From MOBIC] Allergy (Severe, Verified 02/28/25 13:10) GI BLEED Penicillins Allergy (Severe, Verified 02/28/25 13:10) ANAPHYLAXIS HPI Comments Details: Fred is a pleasant male. He is a patient Dr. Hoffman. He seen for the following urologic conditions - hypogonadism - erectile dysfunction - lower urinary tract symptoms Six-month follow-up Does smoke marijuana daily which may suppress testosterone Follow-up from 5 mg daily tadalafil - 20 mg on demand Good effect Also helping with his lower urinary tract symptoms He knows when he has not taken a dose Hypogonadism Reports prior T therapies Labs - 11/26 TT 246 FT 41, 05/26 T 246 F 39 Erectile dysfunction Progressive Known coronary artery disease On medication for blood pressure, dyslipidemia Trial of daily Cialis with boost PSA - 03/27 0.85 Lower urinary tract symptoms Good response to 5 mg daily tadalafil Improved stream and bladder stabilization PFSH Medical History Osteoarthritis of carpometacarpal joint of left thumb Laceration of skin of right knee without complication Migraine On beta bj at home Elevated cholesterol Vitamin D deficiency History of depression Thalamic pain syndrome Hx of hypogonadism Neuropathy CAD (coronary artery disease) Osteoarthritis GERD (gastroesophageal reflux disease) Hx of colonic polyps IBS (irritable colon syndrome) Surgical History Hx of colonoscopy (~09/25/22) History of rectal sphincterotomy History of shoulder surgery History of open reduction and internal fixation (ORIF) procedure History of ankle surgery History of carpal tunnel surgery of left wrist History of tonsillectomy History of heart artery stent Hx of colonoscopy with polypectomy History of esophagogastroduodenoscopy (EGD) Status post angioplasty Family History Father Heart attack Mother Heart attack Sister Mental health disorder Social History Household Members: None Housing: House Are you a primary women's health care nurse practitioner to a significant other at home: No Do you presently have visiting nurse or other home services: Yes (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) Alcohol intake: current Alcohol intake frequency: does not drink Alcohol type: beer Patient Tobacco Use Status: Never used Tobacco e-Cigarette/Vaping Use: Never Used Substance Use Type: Marijuana service: No Current occupational status: disabled Cognitive needs: No Hearing needs: No Vision needs: Yes (rx glasses) Review of Systems Const Denies chills and Denies fever(s) Card Reports no additional complaints and Denies syncope Resp Denies cough GI Denies abdominal pain and Denies heartburn Reports as per HPI and Denies change in libido Neuro Denies syncope Psych Denies change in libido Endo Denies change in libido Physical Exam Const General: cooperative, healthy appearing, comfortable and no acute distress Orientation/consciousness: patient oriented x3 HEENT Face and sinus: Yes normal facial exam Mouth: moist mucous membranes Neck Neck: Yes normal visual inspection, Yes full ROM and Yes trachea midline Chest Chest palpation & inspection: normal inspection of the chest Resp Effort & Inspection: normal respiratory effort, able to speak in complete sentences and no respiratory distress GI Inspection: Yes normal to inspection Back/Spine/Pelvis Cervical Spine: normal cervical lordosis Thoracic/Lumbar Spine: thoracic and lumbar spine normal to inspection Skin General skin exam: no rashes or lesions noted Neuro General: patient oriented x3, gait normal, tone normal and moves all extremities Extrem General: Yes normal to inspection and Yes capillary refill normal Assessment & Plan Assessment & Plan (1) Erectile dysfunction: Code(s): N52.9 - Male erectile dysfunction, unspecified Category: Medical (2) Bladder outlet obstruction: Code(s): N32.0 - Bladder-neck obstruction Category: Medical (3) Hypogonadism in male: Code(s): E29.1 - Testicular hypofunction Category: Medical Plan Lab work today Two week follow-up Orders: Orders Testosterone, Free/Total 01/30/25 E29.1 - Testicular hypofunction Follicle Stimulating Hormone 01/30/25 E29.1 - Testicular hypofunction Medications: Refilled tadalafil Take 2-3 hours before intended activity 20 mg PO ONCE PRN 30 tabs 0RF sexual activity 30 days N52.9 - Male erectile dysfunction, unspecified Patient Instructions: This note is constructed using voice recognition software. While every effort has been made to ensure accuracy information resources manager errors may have been included. Imaging studies, laboratory and physical exam results were discussed and reviewed in detail. No major barriers to patient understanding were identified. An opportunity to ask questions regarding the treatment plan was provided. All questions were answered. The patient expressed understanding and agreement with the above treatment plan. The patient is aware they should contact our office by phone for worsening of their current condition or the appearance of new urologic symptoms. Compliance is encouraged with any medications and followup testing that is ordered. It is a privilege to participate in the urologic care of your patient. If you have any questions or concerns regarding treatment for the above conditions, or other urologic issues, please do not hesitate to contact me. The office telephone contact is [phone]. Sincerely, Dr Kayden Simmons MD, [facility] - Urology Compassionate Specialist Care for the Genitourinary System Coding Level of Care Code Est Pt Level 3 (42732) Complex EM visit Add On G2211 Diagnoses Erectile dysfunction N52.9 Bladder outlet obstruction N32.0 Hypogonadism in male E29.1
== END 2025-01-26 14:20 | disposition home or self-care (01) ==
LOC: HO.HUSH 13:54
PROVIDERS: PCP Internal Medicine; Visit Provider Urology
DX: N52.9 Male erectile dysfunction, unspecified (principal); N32.0 Bladder-neck obstruction; E29.1 Testicular hypofunction
CPT/HCPCS: 99213; G2211

== ENCOUNTER → 2025-01-26 13:53 | Outpatient (BNVA) | payer MEDICARE, MEDICAID, SELFPAY | PROVIDERS: PCP Internal Medicine; Visit Provider Urology | DX: N52.9 Male erectile dysfunction, unspecified (principal); N32.0 Bladder-neck obstruction; E29.1 Testicular hypofunction | CPT/HCPCS: 99212 ==

== ENCOUNTER 2025-01-29 14:01 | Outpatient (AMB) | payer MEDICARE, MEDICAID, SELFPAY ==
--- NOTE | 2025-01-29 14:13 | MHC.PC.OV ---
Vital Signs 01/29/25 14:20 Height 5 ft 7 in Weight 274 lb BMI 42.9 BP 120/70 Blood Pressure Location Lt brachial Position Sitting Pulse 71 Pulse Source Pulse Oximeter Temp 97.9 F Temp Source Axillary Pulse Oximetry (%) 99 Oxygen Delivery Method Room Air Intake Visit Reasons: Routine Orthodontist Small Business Owner Required: No Accompanied by: Self / Same As Patient Allergies meloxicam [From MOBIC] Allergy (Severe, Verified 01/29/25 14:13) GI BLEED Penicillins Allergy (Severe, Verified 01/29/25 14:13) ANAPHYLAXIS Tobacco use date assessed: 01/29/25 Dental Screening Dental Screen Date: 01/29/25 Did you have a dental visit in the last 12 months?: Yes Did you have a dental problem in the last 6 months where you did not have access to dental care?: No PFSH Medical History Osteoarthritis of carpometacarpal joint of left thumb Laceration of skin of right knee without complication Migraine On beta bj at home Elevated cholesterol Vitamin D deficiency History of depression Thalamic pain syndrome Hx of hypogonadism Neuropathy CAD (coronary artery disease) Osteoarthritis GERD (gastroesophageal reflux disease) Hx of colonic polyps IBS (irritable colon syndrome) Surgical History Hx of colonoscopy (~09/25/22) History of rectal sphincterotomy History of shoulder surgery History of open reduction and internal fixation (ORIF) procedure History of ankle surgery History of carpal tunnel surgery of left wrist History of tonsillectomy History of heart artery stent Hx of colonoscopy with polypectomy History of esophagogastroduodenoscopy (EGD) Status post angioplasty Family History (Updated 01/29/25 @ 14:32 by Eliza Tinoco MA) Father Heart attack Mother Heart attack Sister Mental health disorder Social History Household Members: None Housing: House Are you a primary animal care taker to a significant other at home: No Do you presently have visiting nurse or other home services: Yes (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 1. Little interest or pleasure in doing things: not at all 2. Feeling down, depressed, or hopeless: several days 3. Trouble falling or staying asleep, or sleeping too much: not at all 4. Feeling tired or having little energy: not at all 5. Poor appetite or overeating: not at all 6. Feeling bad about yourself - or that you are a failure or have let yourself or your family down: not at all 7. Trouble concentrating on things, such as reading the newspaper or watching television: not at all 8. Moving or speaking so slowly that other people could have noticed. Or the opposite - being so fidgety or restless that you have been moving around a lot more than usual: not at all 9. Thoughts that you would be better off or of hurting yourself in some way: not at all Total score: 1 Source: Developed by Drs. Steve Escobar, Bridget Patten, Haseeb Melendrez and colleagues, with an educational kade from [employer]. Thrive Questionnaire Date Thrive assessed: 01/29/25 I am a: Patient Within the past 12 months, did the food you bought not last and you didn't have the money to get more?: Never true Within the past 12 months, did you worry whether your food would run out before you got money to buy more?: Never true Do you have trouble paying for medicines?: No Do you have trouble getting transportation to medical appointments?: No Do you have trouble paying your heating and electricity bill?: No Do you have trouble taking care of your child, family member or friend?: No Do you have trouble with day-to-day activities such as bathing, preparing meals, shopping, managing finances, etc.?: No Are you currently unemployed and looking for a job?: No Are you interested in more education?: No THRIVE Score: 0 AUDIT C Alcohol Use Questionnaire (AUDIT-C) 1. How often do you have a drink containing alcohol?: Never 3. How often do you have six or more drinks on one occasion?: Never Total Score: 0 KIRBY-7 AMB Questionnaire KIRBY-7 Date KIRBY - 7 assessed: 01/29/25 Feeling nervous, anxious, or on edge: 1 = Several days Not being able to stop or control worryin = Not at all Worrying too much about different things: 0 = Not at all Trouble relaxin = Not at all Being so restless that it is hard to sit still: 0 = Not at all Becoming easily annoyed or irritable: 0 = Not at all Feeling afraid as if something awful might happen: 0 = Not at all Total KIRBY-7 score (0-4 normal; 5-9 mild; 10-14 moderate; 15-21 severe): 1 Source: Developed by Drs. Steve Escobar, Bridget Patten, Haseeb Melendrez and colleagues, with an educational kade from [employer]. Physical exam (Primary Care) Vital Signs: Last Vital Signs Temp 97.9 F 01/29/25 14:20 Pulse 71 01/29/25 14:20 BP 120/70 01/29/25 14:20 Pulse Ox 99 01/29/25 14:20 Oxygen Delivery Method Room Air 01/29/25 14:20 BMI result Body Mass Index 42.9 Tobacco/Smoking Status: Tobacco use Status Tobacco use date assessed 01/29/25 01/29/25 14:15 Patient Tobacco Use Status Never used Tobacco 01/29/25 14:15 e-Cigarette/Vaping Use Never Used 01/29/25 14:15 PHQ-9: PHQ-9 Score PHQ-9: Total score 1 01/29/25 14:33 Thrive Assessment: Date of Thrive Assessment Date Thrive assessed 01/29/25 01/29/25 14:15 Coding Level of Care Code New Pt Level 4 (40366) Complex EM visit Add On G2211 Diagnoses Coronary artery disease involving [place] coronary artery of [place] heart without angina pectoris I25.10 Coronary Disease-Associated Artery/Lesion type: [place] artery [place] vs. transplanted heart: [place] heart Associated angina: without angina Assessment & Plan Assessment & Plan (1) CAD (coronary artery disease): Comment: Stable Code(s): I25.10 - Atherosclerotic heart disease of [place] coronary artery without angina pectoris Category: Medical Qualifiers: Coronary Disease-Associated Artery/Lesion type: [place] artery [place] vs. transplanted heart: [place] heart Associated angina: without angina Qualified Code(s): I25.10 - Atherosclerotic heart disease of [place] coronary artery without angina pectoris Plan: Condition is stable. Plan History of Present Illness The patient is a 54-year-old male presenting with concerns about, weight management challenges related to cardiovascular disease, and anxiety regarding an upcoming colonoscopy. He reported a personal history of colorectal cancer following polyp discovery three to four years ago, leading to anxiety about upcoming surveillance. Over the years, he has monitored his stool with no concerning changes. The patient has cardiovascular disease, compounding his weight management issues, particularly in light of his edentulism. He consumes foods like bread and cake that don?t cause oral discomfort. Difficulties in weight management have led to concerns about possibly being prediabetic, though this has not been confirmed. The patient is on blood thinners and noted a painful black spot identified as a blood blister rather than shingles. He actively avoids opioids, previously opting for medical marijuana for pain management. He inquired about the HPV vaccine due to concerns about cancer risk mitigation but was informed it?s not relevant at his age. He also maintains a strong immune response, traditionally avoiding flu vaccinations. 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 - Utilizes medical marijuana for pain management, no cigarette smoking or alcohol use. - Faces dietary restrictions due to lack of teeth, impacting dietary choices and overall nutritional intake. - Engages in weight management efforts complicated by cardiovascular disease and diet limitations. - Reports strong familial connections, including caring for grandchildren. - No active engagement with computer technology. Review of Systems - Gastrointestinal: Reports normal stool monitoring. - Cardiovascular: Concern with weight affecting heart disease. - Dermatological: Reports painful black spot suspected as blood blister. - Immune: Denies frequent infections, colds, or fever. - Musculoskeletal: Concerns regarding shingles due to pain, confirmed as not shingles. Physical Exam General: Cooperative and healthy appearing Nutritional Appearance: Well nourished Orientation/consciousness: Patient oriented x3 Limitations: No limitations Head: Normal to inspection General: Appearance normal, both eyes and all related structures Neck: Normal visual inspection Chest: Normal palpation of entire chest wall Respiratory: N ormal respiratory effort Neurology: Patient oriented x3, reports no colds or fever, immune system is good. Results Plan The examination clarified the spot as a blood blister, not shingles. For weight management related to cardiovascular disease, a prescription for Wegovy has been attempted, recognizing potential insurance barriers. Efforts to allay anxiety about a colonoscopy were reinforced by ongoing stool monitoring and the necessity of periodic screenings due to past colorectal cancer. The patient was apprised of suited vaccinations like flu and pneumonia, but HPV was deemed not age-appropriate. Continuous blood monitoring will be imperative, especially with upcoming tests already scheduled. The patient adheres to pain management without opiates, opting for alternative methods such as medical marijuana. Patient was informed and verbally consented to the use of an ambient scribe for clinic note documentation during this visit. Discussion Notes I explained the findings regarding the blood blister and confirmed it was not shingles, easing the patient's worry. For his cardiovascular disease and associated weight management issues, I proposed Wegovy, pending insurance approval, to assist in weight reduction. We discussed his history of colorectal cancer, underscoring the importance of ongoing surveillance colonoscopy for early detection and management. I clarified the purpose and age-appropriateness of vaccinations, specifically advising against the HPV vaccine. Due to his medication regimen and health conditions, continuance of regular blood work within the context of his broader healthcare approach was emphasized. We addressed the patient?s preference for non-opioid pain management alternatives. Patient Instructions - Monitor any changes around the blood blister and report if symptoms worsen. - Arrange for and attend the scheduled colonoscopy as it is crucial for monitoring colorectal health. - Obtain and take Wegovy as prescribed, pending insurance coverage. - Continue regular blood work as coordinated with healthcare providers to monitor overall health. - Discuss any concerns about medications or side effects with your drug discovery informatics specialist during your next appointment. - Avoid vaccinations not recommended for your age group; focus on flu and pneumonia vaccines. - Use medical marijuana as previously determined effective for pain management, avoiding opioids. - Maintain a diet accommodating oral health, seeking additional nutritional guidance if needed.
[2025-01-29 14:20] VITALS: BP 120/70; PULSE 71; TEMP 36.6; O2SAT 99; BMI 42.9
== END 2025-01-29 15:08 | disposition home or self-care (01) ==
LOC: HO.HMCHD 14:02
PROVIDERS: PCP Internal Medicine; Visit Provider Internal Medicine
DX: I25.10 Atherosclerotic heart disease of native coronary artery without angina pectoris (principal)

== ENCOUNTER → 2025-01-29 14:01 | Outpatient (BNVA) | payer MEDICARE, MEDICAID, SELFPAY | PROVIDERS: PCP Internal Medicine; Visit Provider Internal Medicine | DX: I25.10 Atherosclerotic heart disease of native coronary artery without angina pectoris (principal) | CPT/HCPCS: 99202 ==

== ENCOUNTER 2025-01-30 12:42 | Outpatient (REF) | payer MEDICARE, MEDICAID, SELFPAY ==
[2025-01-31 07:43] LABS: Follicle Stimulating Hormone 18.7 mIU/mL (1.4-12.8)
[2025-02-05 17:13] LABS: Testosterone, Free 38.1 pg/mL (35.0-155.0); Testosterone, Total 229 ng/dL (250-1100)
== END 2025-01-30 12:43 | disposition home or self-care (01) ==
LOC: HO.10HDL 12:42
PROVIDERS: Visit Provider Urology
DX: E29.1 Testicular hypofunction (principal); I25.10 Atherosclerotic heart disease of native coronary artery without angina pectoris; Z95.5 Presence of coronary angioplasty implant and graft
CPT/HCPCS: 36415; 83001; 84402; 84403; 93005; 99212

== ENCOUNTER 2025-01-30 12:54 | Outpatient (AMB) | payer MEDICARE, MEDICAID, SELFPAY ==
[2025-01-30 13:00] VITALS: BP 118/72; PULSE 75; BMI 42.8
--- NOTE | 2025-01-30 13:00 | A.OFFVIS_ITS ---
Vital Signs 01/30/25 13:00 Height 5 ft 7 in Weight 273 lb 5.971 oz BMI 42.8 BP 118/72 Blood Pressure Location Lt brachial Position Sitting Pulse 75 Pulse Source Monitor Intake Visit Reasons: 1 yr f/up Insulation Power Unit Tender Required: No Allergies meloxicam [From MOBIC] Allergy (Severe, Verified 01/30/25 13:02) GI BLEED Penicillins Allergy (Severe, Verified 01/30/25 13:02) ANAPHYLAXIS Medication List - Last Reconciled 01/30/25 by Natalya Walker NP-C albuterol sulfate 90 mcg/actuation (Ventolin HFA) 2 puffs inhalation DAILY PRN aspirin (Julia Chewable Low Dose Aspirin) 81 mg PO DAILY atorvastatin 40 mg PO DAILY clopidogrel 75 mg PO DAILY gabapentin 600 mg PO TID metoprolol succinate ER 25 mg PO DAILY omeprazole 20 mg PO BID tadalafil 5 mg PO DAILY 90 days tadalafil 20 mg PO ONCE PRN 30 days HPI HPI 1 yr f/up: Details: Yony is a 54-year-old male past medical history of hyperlipidemia, substance abuse, CAD with RCA stent who presents for follow-up. His last prior visit to our office was 01/31/24. Today he reports that he has been doing very well since his last visit. He denies any chest discomfort at rest or with activity. No concerning shortness of breath. No PND, orthopnea or edema. No heart palpitations, lightheadedness, presyncope, syncope, falls. He reports compliance with his medications. No bleeding issues reported. [facility] Medical History Osteoarthritis of carpometacarpal joint of left thumb Laceration of skin of right knee without complication Migraine On beta bj at home Elevated cholesterol Vitamin D deficiency History of depression Thalamic pain syndrome Hx of hypogonadism Neuropathy CAD (coronary artery disease) Osteoarthritis GERD (gastroesophageal reflux disease) Hx of colonic polyps IBS (irritable colon syndrome) Surgical History Hx of colonoscopy (~09/25/22) History of rectal sphincterotomy History of shoulder surgery History of open reduction and internal fixation (ORIF) procedure History of ankle surgery History of carpal tunnel surgery of left wrist History of tonsillectomy History of heart artery stent Hx of colonoscopy with polypectomy History of esophagogastroduodenoscopy (EGD) Status post angioplasty Family History Father Heart attack Mother Heart attack Sister Mental health disorder Social History Household Members: None Housing: House Are you a primary spiritual care coordinator to a significant other at home: No Do you presently have visiting nurse or other home services: Yes ([employer] 25 hours/week) Alcohol intake: current Alcohol intake frequency: does not drink Alcohol type: beer Patient Tobacco Use Status: Never used Tobacco e-Cigarette/Vaping Use: Never Used Substance Use Type: Marijuana service: No Current occupational status: disabled Cognitive needs: No Hearing needs: No Vision needs: Yes (rx glasses) Review of Systems Const All systems reviewed & are unremarkable except as noted in HPI and below ENT Denies dizziness Card Denies chest pain, Denies chest pain at rest, Denies chest pain with activity, Denies rapid heart rate, Denies pedal edema, Denies edema, Denies leg edema, Denies lightheadedness, Denies palpitations, Denies dyspnea, Denies dyspnea on exertion and Denies orthopnea Resp Denies cough, Denies dyspnea and Denies dyspnea on exertion GI Denies hematochezia and Denies change in stool character Musc Denies abnormal gait, Denies limited range of motion, Denies muscle cramps, Denies muscle weakness, Denies numbness, Denies radiating pain into limb, Denies stiffness and Denies tingling Neuro Denies abnormal gait, Denies dizziness, Denies numbness and Denies tingling Endo Denies palpitations Physical Exam Vital Signs: BMI result Body Mass Index 42.8 Const General: cooperative, healthy appearing, comfortable and no acute distress Orientation/consciousness: patient oriented x3 Neck Neck: Yes normal visual inspection and Yes no JVD Resp Effort & Inspection: normal respiratory effort Auscultation: clear to auscultation bilaterally, no crackles, no rales, no rhonchi and no wheezes Cardio Jugular venous distension: no JVD Rate: regular rate Rhythm: regular rhythm Heart sounds: S1 normal heart sound present, S2 normal heart sound present, no murmurs and no rubs Neuro General: patient oriented x3 Extrem General: Yes normal to inspection, No no pedal edema and No calf tenderness Psych Appearance: grossly normal Mental Status: mental status grossly normal Speech and movement: Normal speech and movement present Office Procedures EKG Details: Today, read by me, Normal sinus rhythm, rate 75, Qtc 437ms [id number], Complete Assessment & Plan Assessment & Plan (1) CAD (coronary artery disease): Comment: Stable Code(s): I25.10 - Atherosclerotic heart disease of [place] coronary artery without angina pectoris Category: Medical Qualifiers: Coronary Disease-Associated Artery/Lesion type: [place] artery [place] vs. transplanted heart: [place] heart Associated angina: without angina Qualified Code(s): I25.10 - Atherosclerotic heart disease of [place] coronary artery without angina pectoris Plan: Prior reports of chest discomfort with radiation to his arms, then with abnormal stress test showing inferior and posterior perfusion defect. He did have a cardiac catheterization 06/24/2020 which showed LAD 50% stenosis, distal RCA 99% stenosis treated with stent across the PL to the PDA. He has done very well since that time without any recurrent anginal symptoms. Last echocardiogram done 05/30/2020 showed EF 60-65%, no valve abnormalities and no regional wall motion abnormalities. EKG done today showing normal sinus rhythm with no acute ST or T-wave abnormalities, rate 75. He continues on dual antiplatelet therapy by his choice. Informed him that Plavix could be stopped and he is very reluctant. It can be held as needed for surgical procedures or if he has any bleeding issues. Continue aspirin, atorvastatin, metoprolol. Cardiac risk factor modification reviewed with him including weight loss, increasing physical activity as tolerated, marijuana cessation. Cardiology follow-up in 1 year, sooner if needed (2) History of heart artery stent: Comment: 06/[address] to right PDA- On Plavix Code(s): Z95.5 - Presence of coronary angioplasty implant and graft Category: Surgical Plan: As above (3) Elevated cholesterol: Code(s): E78.00 - Pure hypercholesterolemia, unspecified Category: Medical Plan: [place] LDL goal less than 70. Labs done 03/10/2024 showed LDL 66. Labs 09/07/2024 showed normal AST and ALT. He has lab orders pending. Continue atorvastatin 40 mg daily. Plan Time spent on chart review, documentation, interview and assessment Coding Level of Care Code Est Pt Level 4 (52177) Complex EM visit Add On G2211 Diagnoses Coronary artery disease involving [place] coronary artery of [place] heart without angina pectoris I25.10 Coronary Disease-Associated Artery/Lesion type: [place] artery [place] vs. transplanted heart: [place] heart Associated angina: without angina History of heart artery stent Z95.5 Elevated cholesterol E78.00 CPT Codes EKG - CPT: [id number], Complete ([id number]) Time Spent (min) 28
== END 2025-01-30 13:34 | disposition home or self-care (01) ==
LOC: HO.HCS 12:54
PROVIDERS: PCP Internal Medicine; Visit Provider Nurse Practitioner Family
DX: I25.10 Atherosclerotic heart disease of native coronary artery without angina pectoris (principal); Z95.5 Presence of coronary angioplasty implant and graft; E78.00 Pure hypercholesterolemia, unspecified
CPT/HCPCS: 93010; 99214; G2211

== ENCOUNTER 2025-02-28 13:03 | Outpatient (AMB) | payer MEDICARE, MEDICAID, SELFPAY ==
--- NOTE | 2025-02-28 13:09 | A.OFFVIS_ITS ---
Vital Signs 02/28/25 13:10 Height 5 ft 7 in Weight 275 lb BMI 43.1 BP 106/52 L Blood Pressure Location Rt brachial Position Sitting Pulse 70 Pulse Source Pulse Oximeter Pulse Oximetry (%) 97 Oxygen Delivery Method Room Air Intake Visit Reasons: returning colo screening Intake Note: NEW PATIENT for recall colo screening. CC: C.O. worsening + persistent reflux despite current PPI. Pt has had EGD and colo previously with Dr. Alvarez and Dr. French. Most recently 2021. Compressor Mechanic Required: No Accompanied by: Self / Same As Patient Allergies meloxicam [From MOBIC] Allergy (Severe, Verified 02/28/25 13:10) GI BLEED Penicillins Allergy (Severe, Verified 02/28/25 13:10) ANAPHYLAXIS HPI HPI returning colo screening: Details: LAST COLONOSCOPY 09/25/2022 Findings: Larynx: edema of arytenoid cartligaes Esophagus: GE junction at 36 cms. Focal esophagitis at GE junction. Edematous folds on gastric side of GEJ with a 1.5 cms benign appearing polyp - biopsied. No Ferguson's. Stomach: Moderate diffuse gastric erythema with scattered 2-3 mm erosions in the antrum. Biopsies were obtained from the antrum and body of the stomach. Grade 2 flap valve on retroflexed examination of the cardia. Duodenum: Normal bulb and descending duodenum Intervention: Biopsies as noted above Procedure Difficulty: colon was long and tortuous and there was some loop formation. Findings: Terminal Ileum: Not evaluated Cecum: Normal Ascending Colon: scattered moderate diverticulosis throughout the colon Transverse Colon: A 2 cms sessile polyp removed with a hot snare. A 5-6 mm sessile polyp removed with a cold snare. Scattered moderate diverticulosis throughout the colon Descending Colon: Scattered moderate diverticulosis throughout the colon Sigmoid Colon: Patchy erythema in the distal sigmoid colon - random biospies obtained. Scattered moderate diverticulosis throughout the colon Rectum: Normal Ano-rectum: Moderate internal hemorrhoids Colon preparation: Good after copious irrigation and a few scattered lumps of solid stool Impression and Post Procedure Diagnosis: Endoscopy Findings: LARYNX: Changes suggestive of LPRD ESOPHAGUS: GE junction at 36 cms. Focal esophagitis at GE junction. Edematous folds on gastric side of GEJ with a 1.5 cms benign appearing polyp - biopsied. STOMACH: Moderate diffuse gastric erythema with scattered 2-3 mm erosions in the antrum. Biopsies were obtained from the antrum and body of the stomach. Grade 2 flap valve on retroflexed examination of the cardia. Colonoscopy Findings: Two small to medium sized polyps removed Moderate diverticulosis seen in the entire colon Moderate hemorrhoids on retroflexed exam. Plan: Await pathology results Repeat Colonoscopy interval based on path results - in 3-5 years if polyps are adenomatous and 10 years if polyps are hyperplastic. PATHOLOGY RESULTS Diagnosis A. Gastric antrum, biopsy: Gastric antral mucosa with minimal chronic inactive gastritis; negative for H pylori, intestinal metaplasia and dysplasia. B. Gastric body, biopsy: Gastric antral/body mucosa with minimal chronic inactive gastritis; negative for H pylori, intestinal metaplasia and dysplasia. C. Esophagogastric junction, nodule, biopsy: Squamocolumnar mucosa with hyperplasia and mild chronic inactive inflammation consistent with reflux esophagitis, and rare goblet cells (see comment); negative for dysplasia. D. Colon, transverse, 2 polyps: Tubular adenomas (4 pieces involved); negative for high-grade dysplasia and carcinoma. E. Colon, left, random, biopsy: Colonic mucosa with no specific change. Comment: (C): Intestinal metaplasia cannot be excluded, and this may represent Ferguson's mucosa if the biopsy was taken above the anatomic gastroesophageal junction. Endoscopic correlation is necessary. TODAY'S VISIT: Patient is here today for follow-up and to discuss going for another colonoscopy. Last colonoscopy in September of 2022. Patient had large tubular adenoma without dysplasia or carcinoma. Patient denies any issues with anesthesia in the past. No history of sleep apnea. Continues to have a e pigastric pain and acid reflux. Currently is on omeprazole. Patient is on daily low-dose aspirin and Plavix. Patient was seen by his mobile phone salesperson last week. We will make sure that we will get risk stratification before sending patient for procedure. Patient also reports that he is constipated. Denies melena, hematochezia, unintentional weight loss or ribbon like stools. Patient denies dyspepsia, dysphagia or odynophagia. [facility] Medical History Osteoarthritis of carpometacarpal joint of left thumb Laceration of skin of right knee without complication Migraine On beta bj at home Elevated cholesterol Vitamin D deficiency History of depression Thalamic pain syndrome Hx of hypogonadism Neuropathy CAD (coronary artery disease) Osteoarthritis GERD (gastroesophageal reflux disease) Hx of colonic polyps IBS (irritable colon syndrome) Surgical History Hx of colonoscopy (~09/25/22) History of rectal sphincterotomy History of shoulder surgery History of open reduction and internal fixation (ORIF) procedure History of ankle surgery History of carpal tunnel surgery of left wrist History of tonsillectomy History of heart artery stent Hx of colonoscopy with polypectomy History of esophagogastroduodenoscopy (EGD) Status post angioplasty Family History Father Heart attack Mother Heart attack Sister Mental health disorder Social History Household Members: None Housing: House Are you a primary healthcare associate to a significant other at home: No Do you presently have visiting nurse or other home services: Yes ([employer] 25 hours/week) Alcohol intake: current Alcohol intake frequency: does not drink Alcohol type: beer Patient Tobacco Use Status: Never used Tobacco e-Cigarette/Vaping Use: Never Used Substance Use Type: Marijuana service: No Current occupational status: disabled Cognitive needs: No Hearing needs: No Vision needs: Yes (rx glasses) Review of Systems Const Denies weight gain and Denies weight loss ENT Reports no additional complaints, Denies dysphagia and Denies odynophagia Card Reports no additional complaints Resp Reports no additional complaints GI Reports abdominal pain, Denies belching, Denies melena, Reports bloating, Denies change in bowel habits, Denies dysphagia, Denies excessive flatus, Denies dyspepsia, Reports heartburn, Denies diarrhea, Denies loose stools, Denies nausea, Denies odynophagia and Denies vomiting Reports no additional complaints Musc Reports no additional complaints Neuro Reports no additional complaints Psych Reports no additional complaints Endo Reports no additional complaints Physical Exam Vital Signs: Last Vital Signs Pulse 70 02/28/25 13:10 BP 106/52 L 02/28/25 13:10 Pulse Ox 97 02/28/25 13:10 Oxygen Delivery Method Room Air 02/28/25 13:10 BMI result Body Mass Index 43.1 Const General: healthy appearing, no acute distress and well developed Nutritional Appearance: well nourished Orientation/consciousness: patient oriented x3 Resp Effort & Inspection: normal respiratory effort, able to speak in complete sentences, no tracheal deviation and symmetric chest movement Auscultation: clear to auscultation bilaterally Cardio Rate: regular rate GI Inspection: Yes normal to inspection, No distended and Yes obesity Palpation (GI): Soft to palpation, not firm, nontender and No hepatosplenomegaly present Auscultation: normal bowel sounds General: Yes no CVA tenderness Back/Spine/Pelvis Back: no CVA tenderness Skin General skin exam: elasticity normal, turgor normal and dry skin Neuro General: patient oriented x3 Psych Appearance: grossly normal Mental Status: mental status grossly normal Assessment & Plan Assessment & Plan (1) GERD (gastroesophageal reflux disease): Code(s): K21.9 - Gastro-esophageal reflux disease without esophagitis Category: Medical Qualifiers: Esophagitis presence: esophagitis presence not specified Qualified Code(s): K21.9 - Gastro-esophageal reflux disease without esophagitis (2) Hx of colonic polyps: Code(s): Z86.010 - Personal history of colon polyps Category: Medical (3) IBS (irritable colon syndrome): Code(s): K58.9 - Irritable bowel syndrome, unspecified Category: Medical Qualifiers: Irritable bowel syndrome type: without diarrhea Qualified Code(s): K58.9 - Irritable bowel syndrome, unspecified Plan Message sent to Surgical schedule to book procedure for patient. Patient will go for upper endoscopy as well as he continues to have epigastric pain and acid reflux. Will change his PPI. Patient will take pantoprazole in the morning and famotidine at bedtime. Avoid dietary triggers and like a snacking. Staying upright for minimal 3 hours after meals discussed with patient. Patient will take Dulcolax daily. What to expect before during and after procedure discussed with patient. Stressed the importance of good bowel prep and clear liquid diet day before procedure. Patient will be seen after the procedure, sooner on as needed basis. He is agreeable to this plan and verbalizes understanding of instructions. He was given the opportunity to ask questions and all questions answered. Thank you for allowing me to participate in his care Medications: New bisacodyl (Dulcolax (bisacodyl)) 10 mg (2 x 5 mg) PO BEDTIME 180 tabs 4RF famotidine (Pepcid) 20 mg PO BEDTIME 30 tabs 3RF K21.9 - Gastro-esophageal reflux disease without esophagitis polyethylene glycol 3350 (Miralax) As directed by gastroenterology department at [facility] 238 grams PO ONCE 238 grams 0RF Z12.11 - Encounter for screening for malignant neoplasm of colon pantoprazole take one tablet half an hour before breakfast 40 mg PO DAILY 30 tabs 3RF K21.9 - Gastro-esophageal reflux disease without esophagitis Discontinued omeprazole Discontinued Reason: Doctor's Order 20 mg PO BID 60 caps 3RF K21.9 - Gastro-esophageal reflux disease without esophagitis Coding Level of Care Code Est Pt Level 4 (00979) Diagnoses Gastroesophageal reflux disease, unspecified whether esophagitis present K21.9 Esophagitis presence: esophagitis presence not specified Hx of colonic polyps Z86.010 Irritable bowel syndrome without diarrhea K58.9 Irritable bowel syndrome type: without diarrhea Time Spent (min) 40 Comment 30 minutes spent with patient and additional 10 minutes spent reviewing his records
[2025-02-28 13:10] VITALS: BP 106/52; PULSE 70; O2SAT 97; BMI 43.1
== END 2025-02-28 13:38 | disposition home or self-care (01) ==
LOC: HO.HGI 13:03
PROVIDERS: PCP Internal Medicine; Visit Provider Nurse Practitioner Family
DX: K21.9 Gastro-esophageal reflux disease without esophagitis (principal); Z86.0100 Personal history of colon polyps, unspecified; K58.9 Irritable bowel syndrome, unspecified
CPT/HCPCS: 99214

== ENCOUNTER → 2025-02-28 13:03 | Outpatient (BNVA) | payer MEDICARE, MEDICAID, SELFPAY | PROVIDERS: PCP Internal Medicine; Visit Provider Nurse Practitioner Family | DX: K21.9 Gastro-esophageal reflux disease without esophagitis (principal); K58.9 Irritable bowel syndrome, unspecified; Z86.0100 Personal history of colon polyps, unspecified | CPT/HCPCS: 99212 ==

== ENCOUNTER 2025-03-23 13:23 | Outpatient (AMB) | payer MEDICARE, MEDICAID, SELFPAY ==
--- NOTE | 2025-03-23 13:23 | MHC.OFFVIS ---
Intake Visit Reasons: Lab f/u- r/s missed appt Intake Note: Patient is present for LABS F/U -R/S MISSED APPT Urology Medication:TADALAFIL Antibiotic Allergy:PENICILLINS Blood Thinner:ASPIRIN Sharepoint Solutions Architect Required: No Allergies meloxicam (From MOBIC) Allergy (Severe, Verified 03/23/25 13:24) GI BLEED Penicillins Allergy (Severe, Verified 03/23/25 13:24) ANAPHYLAXIS HPI Comments Details: Fred is a pleasant male. He is a patient Dr. Blanco. He seen for the following urologic conditions - hypogonadism - erectile dysfunction - lower urinary tract symptoms Telemedicine Evaluation 15 min Consultation [employer] [place] Video Significant improvement with daily tadalafil has been ongoing Initially had occasional headache but that has resolved Does smoke marijuana daily which may suppress testosterone Follow-up from 5 mg daily tadalafil - 20 mg on demand Good effect Also helping with his lower urinary tract symptoms He knows when he has not taken a dose Hypogonadism Reports prior T therapies Labs - 11/26 T 246 FT 41, 05/26 T 246 F 39, 01/26 T 230 FSH 18 Erectile dysfunction Progressive Known coronary artery disease On medication for blood pressure, dyslipidemia Response to daily Cialis with 20 mg on demand PSA - 03/27 0.85 Lower urinary tract symptoms Good response to 5 mg daily tadalafil Improved stream and bladder stabilization PFSH Medical History Osteoarthritis of carpometacarpal joint of left thumb Laceration of skin of right knee without complication Migraine On beta bj at home Elevated cholesterol Vitamin D deficiency History of depression Thalamic pain syndrome Hx of hypogonadism Neuropathy CAD (coronary artery disease) Osteoarthritis GERD (gastroesophageal reflux disease) Hx of colonic polyps IBS (irritable colon syndrome) Surgical History Hx of colonoscopy (~09/25/22) History of rectal sphincterotomy History of shoulder surgery History of open reduction and internal fixation (ORIF) procedure History of ankle surgery History of carpal tunnel surgery of left wrist History of tonsillectomy History of heart artery stent Hx of colonoscopy with polypectomy History of esophagogastroduodenoscopy (EGD) Status post angioplasty Family History Father Heart attack Mother Heart attack Sister Mental health disorder Social History Household Members: None Housing: House Are you a primary nursing care partner to a significant other at home: No Do you presently have visiting nurse or other home services: Yes (C[employer] T[employer]ER [employer] 25 hours/week) Alcohol intake: current Alcohol intake frequency: does not drink Alcohol type: beer Patient Tobacco Use Status: Never used Tobacco e-Cigarette/Vaping Use: Never Used Substance Use Type: Marijuana service: No Current occupational status: disabled Cognitive needs: No Hearing needs: No Vision needs: Yes (rx glasses) Review of Systems Const All systems reviewed & are unremarkable except as noted in HPI and below Reports no additional complaints Resp Reports no additional complaints GI Reports no additional complaints Reports as per HPI Musc Reports no additional complaints Physical Exam Telemedicine evaluation Appropriate responses Regular breathing rate and rhythm HEENT Head: Yes normal to inspection Ears: hearing grossly normal bilaterally Eyes General: appearance normal, both eyes and all related structures Neck Neck: Yes normal visual inspection Chest Chest palpation & inspection: normal inspection of the chest Resp Effort & Inspection: normal respiratory effort and able to speak in complete sentences Telehealth Telehealth Telehealth Platform: [employer] Location of provider rendering services: practice address Location of patient: address on file Patient Identification confirmed using: Name, : Yes Telehealth method: video Patient verbally consented to treatment: Yes Patient verbally consented to billing insurance company: Yes Patient informed of any privacy concerns related to visit: Yes Minutes spent on Phone/Video with Pt.: 15 Assessment & Plan Assessment & Plan (1) Erectile dysfunction: Code(s): N52.9 - Male erectile dysfunction, unspecified Category: Medical (2) Bladder outlet obstruction: Code(s): N32.0 - Bladder-neck obstruction Category: Medical Plan Six-month follow-up office Medications: Refilled tadalafil Take 2-3 hours before intended activity 20 mg PO ONCE PRN 30 tabs 0RF sexual activity 30 days N52.9 - Male erectile dysfunction, unspecified tadalafil For prostate and erections 5 mg PO DAILY 90 tabs 1RF sexual activity 90 days N52.9 - Male erectile dysfunction, unspecified Patient Instructions: This note is constructed using voice recognition software. While every effort has been made to ensure accuracy fire apparatus sprinkler inspector errors may have been included. Imaging studies, laboratory and physical exam results were discussed and reviewed in detail. No major barriers to patient understanding were identified. An opportunity to ask questions regarding the treatment plan was provided. All questions were answered. The patient expressed understanding and agreement with the above treatment plan. The patient is aware they should contact our office by phone for worsening of their current condition or the appearance of new urologic symptoms. Compliance is encouraged with any medications and followup testing that is ordered. It is a privilege to participate in the urologic care of your patient. If you have any questions or concerns regarding treatment for the above conditions, or other urologic issues, please do not hesitate to contact me. The office telephone contact is [phone]. Sincerely, Dr Kayden Simmons MD, [facility] - Urology Compassionate Specialist Care for the Genitourinary System Coding Level of Care Code Tele Est Pt Level 3 (24760) Complex EM visit Add On G2211 Diagnoses Erectile dysfunction N52.9 Bladder outlet obstruction N32.0
== END 2025-03-23 15:05 | disposition home or self-care (01) ==
LOC: HO.HUSH 13:23
PROVIDERS: PCP Internal Medicine; Visit Provider Urology
DX: N52.9 Male erectile dysfunction, unspecified (principal); N32.0 Bladder-neck obstruction
CPT/HCPCS: 99213; G2211

== ENCOUNTER → 2025-03-23 13:23 | Outpatient (BNVA) | payer MEDICARE, MEDICAID, SELFPAY | PROVIDERS: PCP Internal Medicine; Visit Provider Urology | DX: Z13.89 Encounter for screening for other disorder (principal) ==

== ENCOUNTER 2025-03-30 12:12 | Outpatient (REF) | payer MEDICARE, MEDICAID, SELFPAY ==
[2025-03-30 13:08] LABS: Appearance Urine Clear; Color Urine Dark Yellow; Glucose Urine UA Negative (Negative); Leukocyte Esterase Urine Trace (Negative); Nitrite Urine Negative (Negative); Specific Gravity - Urine >= 1.030 (1.005-1.025); UMIC TRIGGER UA YES; Urine Blood Negative (Negative); Urine Ketones Trace mg/dL (Negative); Urine Protein Trace mg/dL (Neg-Trace)
[2025-03-30 13:14] LABS: Bacteria Urine None Seen (None Seen); Hematocrit 40.4 % (42.0-52.0); Hemoglobin 14.1 g/dl (14.0-18.0); Hyaline Casts Urine 0-2 /LPF (0-2); Mean Corpuscular HGB Conc 34.9 g/dl (31.0-36.0); Mean Corpuscular Hemoglobin 31.3 pg (27.0-33.0); Mean Corpuscular Volume 89.8 fL (80.0-98.0); Mean Platelet Volume 9.6 fL (9.4-12.4); Platelet Count 180 X10*3/uL (160-400); RBC Urine 0-2 /HPF (0-2); Red Cell Distribution Width 13.1 % (11.0-16.0); Squamous Epithelial Cell Urine 0-2 /HPF (0-2); WBC Urine 0-5 /HPF (0-5); White Blood Count 8.3 X10*3/uL (4.8-10.8)
[2025-03-30 13:28] LABS: Estimated Average Glucose 117 mg/dL; Hemoglobin A1C 141.2605 umol/L; Hemoglobin A1c % 5.7 % (<6.0); Total Hemoglobin (HGBA1C) 3650.9583 umol/L
[2025-03-30 13:50] LABS: Alanine Aminotransferase 26 U/L (0-40); Albumin Level 4.4 g/dL (3.5-5.0); Alkaline Phosphatase 85 U/L (39-117); Anion Gap 10 (12-20); Aspartate Amino Transferase 27 U/L (5-37); Bilirubin Direct 0.3 mg/dL (0.0-0.5); Bilirubin Total 0.9 mg/dL (0.0-1.0); Blood Urea Nitrogen 7 mg/dL (9-16); Calcium 8.9 mg/dL (8.4-10.2); Carbon Dioxide 24 mmol/L (22-29); Chloride 107 mmol/L (96-108); Cholesterol 113 mg/dL (<200); Estimated Glomerular Filt Rate > 60; Glucose Random 121 mg/dL (60-115); HDL Cholesterol 31 mg/dL (>40); LDL Cholesterol Calculated 67 mg/dL (<100); Sodium 137 mmol/L (135-145); Thyroid Stimulating Hormone 0.63 uIU/mL (0.32-4.0); Total Protein 7.3 g/dL (6.5-8.0); Triglycerides 78 mg/dL (<150)
== END 2025-03-30 12:13 | disposition home or self-care (01) ==
LOC: HO.10HDL 12:12
PROVIDERS: Visit Provider Internal Medicine
DX: I25.10 Atherosclerotic heart disease of native coronary artery without angina pectoris (principal)
CPT/HCPCS: 36415; 80048; 80061; 80076; 81001; 83036; 84443; 85027

== ENCOUNTER 2025-06-26 10:50 | Outpatient (AMB) | payer MEDICARE, MEDICAID, SELFPAY ==
--- NOTE | 2025-06-26 10:51 | A.OFFPC_ITS ---
Vital Signs 06/26/25 10:57 Height 5 ft 7 in Weight 271 lb BMI 42.4 BP 110/58 L Blood Pressure Location Rt brachial Position Sitting Respiration 18 Pulse 85 Pulse Source Pulse Oximeter Temp 98.9 F Temp Source Temporal Artery Scan Pulse Oximetry (%) 96 Oxygen Delivery Method Room Air Intake Visit Reasons: L knee Problems Layout Artist Required: No Accompanied by: Self / Same As Patient Allergies meloxicam (From [facility]) Allergy (Severe, Verified 06/26/25 10:51) GI BLEED Penicillins Allergy (Severe, Verified 06/26/25 10:51) ANAPHYLAXIS Medication List - Last Reconciled 06/26/25 by Pipe Eller MD albuterol sulfate 90 mcg/actuation (Ventolin HFA) 2 puffs inhalation DAILY PRN aspirin (Julia Chewable Low Dose Aspirin) 81 mg PO DAILY atorvastatin 40 mg PO DAILY bisacodyl (Dulcolax (bisacodyl)) 10 mg (2 x 5 mg) PO BEDTIME clopidogrel 75 mg PO DAILY famotidine (Pepcid) 20 mg PO BEDTIME gabapentin 600 mg PO TID metoprolol succinate ER 25 mg PO DAILY pantoprazole 40 mg PO DAILY polyethylene glycol 3350 (Miralax) 238 grams PO ONCE ropinirole 1 mg PO BEDTIME tadalafil 20 mg PO ONCE PRN 30 days tadalafil 5 mg PO DAILY 90 days Tobacco use date assessed: 01/29/25 Dental Screening Dental Screen Date: 06/26/25 Did you have a dental visit in the last 12 months?: Yes Did you have a dental problem in the last 6 months where you did not have access to dental care?: No Was dental information given to patient?: Patient has dentist HPI HPI Comments History of Present Illness Details The patient is a 54-year-old male presenting with pain and swelling in the knee. The issue began four to five days ago and is described as a throbbing pain that impedes sleep. The pain is rated as 9 out of 10 and is located below and above the knee. The patient reports a notable lump near the area of pain. No recent trauma or injury was reported, and the pain is accompanied by feelings of a vice medical appointment scheduler sensation. Swelling in the leg was noted, though no history of prolonged bed rest or recent travel exists. The patient expresses concern about the possibility of a blood clot due to the uniqueness of this pain as compared to previous experiences with arthritis-related discomfort. Medical History: - Coronary artery disease with prior robert nt placement - Hyperlipidemia - Osteoarthritis - Neuropathy - Restless legs syndrome - Erectile dysfunction - Enlarged prostate Surgical History: - Carpal tunnel release surgery - Removal of a bone spur related to arth ritis - Stent placement for coronary artery di sease Medications: - Albuterol inhaler for wheezing - Aspirin for coronary artery disease - Atorvastatin 40 mg for hyperlipidemia - Plavix 75 mg for coronary artery disea se - Gabapentin 600 mg three times daily fo r neuropathy - Ropinirole for restless legs syndrome - Cialis for erectile dysfunction and en larged prostate Diagnostic Results: - X-ray by Dr. 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 [employer] - Enjoys watching sports but no longer p articipates due to balance issues and neuropathy - Reports not having a diet rich in meat due to lack of teeth, prefers bread and avoids fried foods PFSH Medical History (Updated 06/26/25 @ 11:35 by Pipe Eller MD) Restless leg syndrome Hyperlipidemia Osteoarthritis of carpometacarpal joint of left thumb Laceration of skin of right knee without complication Migraine On beta bj at home Elevated cholesterol Vitamin D deficiency History of depression Thalamic pain syndrome Hx of hypogonadism Neuropathy CAD (coronary artery disease) Osteoarthritis GERD (gastroesophageal reflux disease) Hx of colonic polyps IBS (irritable colon syndrome) Surgical History (Updated 06/26/25 @ 11:31 by Pipe Eller MD) Hx of colonoscopy (~09/25/22) History of rectal sphincterotomy History of shoulder surgery History of open reduction and internal fixation (ORIF) procedure History of ankle surgery History of carpal tunnel surgery of left wrist History of tonsillectomy History of heart artery stent Hx of colonoscopy with polypectomy History of esophagogastroduodenoscopy (EGD) Status post angioplasty Family History Father Heart attack Mother Heart attack Sister Mental health disorder Social History Household Members: None Housing: House Are you a primary child care leader to a significant other at home: No Do you presently have visiting nurse or other home services: Yes ([employer] 25 hours/week) Alcohol intake: current Alcohol intake frequency: does not drink Alcohol type: beer Patient Tobacco Use Status: Never used Tobacco e-Cigarette/Vaping Use: Never Used Substance Use Type: Marijuana service: No Current occupational status: disabled Cognitive needs: No Hearing needs: No Vision needs: Yes (rx glasses) Questionnaire Thrive Questionnaire Date Thrive assessed: 01/29/25 KIRBY-7 AMB Questionnaire KIRBY-7 Date KIRBY - 7 assessed: 01/29/25 Source: Developed by Drs. Steve Escobar, Bridget Patten, Haseeb Melendrez and colleagues, with an educational kade from [employer]. Review of Systems Const Details: - Musculoskeletal: Reports throbbing pain and swelling in the knee - Cardiovascular: Reports coronary artery disease; takes medication - Neurological: Reports neuropathy; no reports of dizziness or headaches - Respiratory: Reports wheezing, denied allergies - Genitourinary: Reports erectile dysfunction and enlarged prostate - Psychiatric: Denies psychological issues such as anxiety or depression - General: Denies fever and chills All systems reviewed & are unremarkable except as reviewed in HPI and above Physical exam (Primary Care) Vital Signs: Last Vital Signs Temp 98.9 F 06/26/25 10:57 Pulse 85 06/26/25 10:57 Resp 18 06/26/25 10:57 BP 110/58 L 06/26/25 10:57 Pulse Ox 96 06/26/25 10:57 Oxygen Delivery Method Room Air 06/26/25 10:57 BMI result Body Mass Index 42.4 Tobacco/Smoking Status: Tobacco use Status Tobacco use date assessed 01/29/25 06/26/25 10:53 Patient Tobacco Use Status Never used Tobacco 06/26/25 10:53 e-Cigarette/Vaping Use Never Used 06/26/25 10:53 Thrive Assessment: Date of Thrive Assessment Date Thrive assessed 01/29/25 06/26/25 10:53 Const Other: General: +Alert and oriented, Well nourished, No acute distress. Eye: Pupils are equal, round and reactive to light, Intact accommodation, Extraocular movements are intact, Normal conjunctiva, Vision unchanged. HENT: Normocephalic, Atraumatic, Tympanic membranes are clear, Normal hearing, Oral mucosa is moist, No pharyngeal erythema, Ear canals patent. Respiratory: Lungs CTA bilaterally, Occasional wheeze, Respirations are non- labored. Cardiovascular: Regular rate, Regular rhythm, S1 auscultated, S2 auscultated, No murmur, Good pulses equal in all extremities, Normal peripheral perfusion, No edema. Gastrointestinal: Soft, Non-tender, Non-distended, Normal bowel sounds, No organomegaly. Musculoskeletal: Limited range of motion in the knee, Tenderness and swelling noted in the knee, No deformity, Normal gait. Bone SPur over left knee Integumentary: Warm, Dry, [place], Intact. Neurologic: Alert, Oriented, Normal sensory, Normal motor function, No focal defects, Cranial Nerves II-XII are grossly intact, Normal deep tendon reflexes. Psychiatric: Cooperative, Appropriate mood & affect, Normal judgment. Coding Level of Care Code Est Pt Level 4 (26823) Complex EM visit Add On G2211 Diagnoses Pain in both lower extremities M79.604; M79.605 Laterality: bilateral Coronary artery disease involving [place] coronary artery of [place] heart without angina pectoris I25.10 Associated angina: without angina Coronary Disease-Associated Artery/Lesion type: [place] artery [place] vs. transplanted heart: [place] heart History of heart artery stent Z95.5 Gastroesophageal reflux disease without esophagitis K21.9 Esophagitis presence: without esophagitis Hypogonadism in male E29.1 Erectile dysfunction, unspecified erectile dysfunction type N52.9 Erectile dysfunction type: unspecified Primary osteoarthritis of first carpometacarpal joint of right hand M18.11 Osteoarthritis type: primary Other hyperlipidemia E78.49 Hyperlipidemia type: other hyperlipidemia Restless leg syndrome G25.81 Assessment & Plan Assessment & Plan (1) Leg pain: Comment: Has an extensive history of osteoarthritis of the left knee and has been evaluated by Orthopedic surgery. Presents with complains of pain in his left thigh and left rowell area. On exam he does have some point tenderness along his left calf and does appear to be swollen with 1+ pitting edema. Range of motion is mildly restricted however pulses are felt on the dorsum of the foot. Etiology at this time includes possible progression of his osteoarthritis, a gout flare (less likely given knees are warm), a possible DVT given his symptoms (moderate risk on Wells score). To further evaluate we will obtain a D-dimer, a duplex to rule out any DVTs and an x-ray of the knee to evaluate for possible osteoarthritis. Did advise patient to go to the emergency room for a duplex however he reiterated that he would like to have it done outpatient pain was not severe enough although did explain to him that if his symptoms were to get worse to visit the emergency room for intervention. Code(s): M79.606 - Pain in leg, unspecified Category: Medical Qualifiers: Laterality: bilateral Qualified Code(s): M79.604 - Pain in right leg; M79.605 - Pain in left leg (2) CAD (coronary artery disease): Comment: Follows with the Cardiology Status post PCI - Continue aspirin and atorvastatin for further management. Code(s): I25.10 - Atherosclerotic heart disease of [place] coronary artery without angina pectoris Category: Medical Qualifiers: Associated angina: without angina Coronary Disease-Associated Artery/Lesion type: [place] artery [place] vs. transplanted heart: [place] heart Qualified Code(s): I25.10 - Atherosclerotic heart disease of [place] coronary artery without angina pectoris (3) History of heart artery stent: Comment: - S/p PCI on 06/[address] to right PDA - On Plavix (Has completed treatment, however patient would like to continue taking his medications since he reports he feels well) Code(s): Z95.5 - Presence of coronary angioplasty implant and graft Category: Surgical (4) GERD (gastroesophageal reflux disease): Comment: - Continue Famotidine Code(s): K21.9 - Gastro-esophageal reflux disease without esophagitis Category: Medical Qualifiers: Esophagitis presence: without esophagitis Qualified Code(s): K21.9 - Gastro-esophageal reflux disease without esophagitis (5) Hypogonadism in male: Comment: - Follows with Urology and being treated with Cialis 5mg Daily (Per Urology) - Last labs reviewed, testosterone (free) low - Advised patient to follow up with urology and discuss need to continue medication Code(s): E29.1 - Testicular hypofunction Category: Medical (6) Erectile dysfunction: Comment: - Well controlled/managed with Tadalafil 20mg PRN Code(s): N52.9 - Male erectile dysfunction, unspecified Category: Medical Qualifiers: Erectile dysfunction type: unspecified Qualified Code(s): N52.9 - Male erectile dysfunction, unspecified (7) Osteoarthritis of carpometacarpal joint of right thumb: Comment: - S/p Surgery with no further symptoms Code(s): M18.11 - Unilateral primary osteoarthritis of first carpometacarpal joint, right hand Category: Medical Qualifiers: Osteoarthritis type: primary Qualified Code(s): M18.11 - Unilateral primary osteoarthritis of first carpometacarpal joint, right hand (8) Hyperlipidemia: Comment: - Continue atorvastatin 40 mg daily - Last lipid panel evaluated, within normal limits Code(s): E78.5 - Hyperlipidemia, unspecified Category: Medical Qualifiers: Hyperlipidemia type: other hyperlipidemia Qualified Code(s): E78.49 - Other hyperlipidemia (9) Restless leg syndrome: Comment: - Being managed with Ropinirole 1mg QHS - Will obtain Iron Panel at next visit Code(s): G25.81 - Restless legs syndrome Category: Medical Plan: Health management: - Screening for blood clots and imaging of the knee condition - Recommendation for limited Cialis intake for managing symptomatic blood pressure reduction. Patient was informed and verbally consented to the use of an ambient scribe for clinic note documentation during this visit. Plan After reviewing the patient's condition, we discussed the potential for osteoarthritis and possible deep vein thrombosis, given the symptoms and history. We ordered an ultrasound to evaluate for DVT and a D-dimer to assist in distinguishing this possibility. On deep vein thrombosis, I explained the likelihood, the potential risks, and the importance of prompt imaging. Recommendations were made to cease daily Cialis due to risk of hypotension, and both the benefits of symptom management versus risks of acute drop in blood pressure were considered. Medication guidance for cardiac care was affirmed, with continuation of aspirin and atorvastatin. I provided anticipatory guidance addressing potential increase in pain or swelling as indicators for ER visits. Orders: Orders US venous duplex LE LT Today M79.604 - Pain in right leg, M79.605 - Pain in left leg D Dimer High Sensitivity Today M79.604 - Pain in right leg, M79.605 - Pain in left leg IRON PROFILE Today G25.81 - Restless legs syndrome XR knee LT 3V Today M79.604 - Pain in right leg, M79.605 - Pain in left leg Uric Acid Today M79.604 - Pain in right leg, M79.605 - Pain in left leg Patient Instructions: - Go to the emergency room if pain intensifies or if fevers develop. - Await a call for ultrasound scheduling, if not willing to visit the emergency room. - Continue current medications unless advised otherwise. - Discontinue daily Cialis; use only as needed and cease if a refill is required until further evaluation. - Follow up for imaging results and confirmed diagnosis. - Ensure optimal leg elevation and mild activity.
[2025-06-26 10:57] VITALS: BP 110/58; PULSE 85; RESP 18; TEMP 37.2; O2SAT 96; BMI 42.4
--- OUTSIDE RECORDS SUMMARY | 2025-06-26 13:21 | XMS_ITS | Encounter Summary ---
Author Organization [facility] Address [address] [place] [phone] Phone Care Team Providers Care Engineering Model Maker Name Role Phone Pcp, Unknown Primary Care Provider Ben Kenny MD Primary Care Provider Encounter Details Date Type Department Care Team (Late st Contact Info) Description 06/24/2018 Procedure Pass [facility], Ct Scan - [address] [address] Social History Tobacco Use Types Packs/Day Years Used Date Smoking Tobacco: Never Assessed Sex and Gender Information Value Date Recorded Sex Assigned at Not on file Legal Sex Male 9:36 PM EDT Gender Identity Not on file Sexual Orientation Not on file documented as of this encounter Plan of Treatment Not on file documented as of this encounter Visit Diagnoses Not on filedocumented in this encounter Care Teams Engineering Model Maker Relationship Specialty Start Date End Date Pcp, Unknown PCP - General 06/24/18 07/12/18 Ben Hoffman MD [address] [place] [address] [place] [address] PCP - General Internal Medicine 07/13/18 documented as of this encounter Additional Source Comments The information contained in this document represents components of the legal health record. It is not the complete legal health record.[facility]
--- OUTSIDE RECORDS SUMMARY | 2025-06-26 13:21 | XMS_ITS | Encounter Summary ---
Author Organization [facility] Address [address] [place] [phone] Phone Care Team Providers Care Rotary Helper Name Role Phone Pcp, Unknown Primary Care Provider Ben Kenny MD Primary Care Provider Encounter Details Date Type Department Care Team (Late st Contact Info) Description 06/24/2018 Ancillary Orders Virtual Department [address] [place] [address] Steve Larson MD [address] [place] [id number] [email or web address] Low back pain, unspecified back pain laterality, unspecified chronicity, with sciatica presence unspecified Social History Tobacco Use Types Packs/Day Years Used Date Smoking Tobacco: Never Assessed Sex and Gender Information Value Date Recorded Sex Assigned at Not on file Legal Sex Male 9:36 PM EDT Gender Identity Not on file Sexual Orientation Not on file documented as of this encounter Plan of Treatment Not on file documented as of this encounter Results * CT LUMBAR SPINE WITHOUT CONTRAST (07/13/2018 12:01 PM EDT) Anatomical Region Laterality Modality L-spine Computed Tomogra phy 07/13/2018 12:2 7 PM EDT Impressions 07/13/2018 1:33 PM EDT Mildly progressive degenerative changes across the L4-5 disc space with some mild mass effect on the thecal sac and mildly progressive foraminal narrowing bilaterally. Some progressive hypertrophic changes of the left L5-S1 facet but not near the foramen or canal. No other abnormality identified to account for the symptoms. Minimal fusiform ectasia of the infrarenal aorta. TOTAL CTDIvol: 50.8 mGy POS - [id number] Edited by: Felicity Bal on 07/13/2018 12:45 PM Narrative 07/13/2018 1:33 PM EDT HISTORY: Low back pain with right radiculopathy. COMPARISON: March 24, 2016 TECHNIQUE: Unenhanced CT lumbar spine. Sagittal and coronal reformats generated. Automated exposure control utilized. FINDINGS: L1-2: No disc abnormality of concern. No canal or foraminal stenosis apparent. L2-3: No disc abnormality of concern is identified. No canal or foraminal stenosis is identified. L3-4: Mild disc height loss is present. No focal disc abnormality identified. There is some mild uncovertebral spurring on the right which appears similar. No progressive canal or foraminal stenosis appreciated. Anterior spurring at upper L4 is unchanged. L4-5: More pronounced disc height loss with mild progression since prior study. This is more pronounced towards the right side of the disc space than left. There is some uncovertebral spurring. There is some minor facet degenerative change. This leads to moderate foraminal compromise bilaterally and is mildly progressive compared to prior. There is probably some central disc ridge complex and there is some slight flattening of the thecal sac suggested. L5-S1: There is progressive hypertrophic change about the left-sided L5-S1 facet joint. No progressive disc height loss. No progressive canal or foraminal stenosis. No bony destructive lesions identified. No compression deformity. No gross sclerosis or erosion in the visualized portion of the SI joints. No adenopathy or prominent aortic dilatation apparent in the [id number]. There is suggestion of some minor ectasia of the infrarenal aorta. Procedure Note Paddy Jay MD - 07/13/2018 HISTORY: Low back pain with right radiculopathy. COMPARISON: March 24, 2016 TECHNIQUE: Unenhanced CT lumbar spine. Sagittal and coronal reformatsgenerated. Automated exposure control utilized. FINDINGS: L1-2: No disc abnormality of concern. No canal or foraminal stenosisapparent. L2-3: No disc abnormality of concern is identified. No canal or foraminalstenosis is identified. L3-4: Mild disc height loss is present. No focal disc abnormalityidentified. There is some mild uncovertebral spurring on the right whichappears similar. No progressive canal or foraminal stenosis appreciated.Anterior spurring at upper L4 is unchanged. L4-5: More pronounced disc height loss with mild progression since priorstudy. This is more pronounced towards the right side of the disc spacethan left. There is some uncovertebral spurring. There is some minor facetdegenerative change. This leads to moderate foraminal compromisebilaterally and is mildly progressive compared to prior. There is probablysome central disc ridge complex and there is some slight flattening of thethecal sac suggested. L5-S1: There is progressive hypertrophic change about the left-sided L5-L2xmtid joint. No progressive disc height loss. No progressive canal orforaminal stenosis. No bony destructive lesions identified. No compression deformity. No grosssclerosis or erosion in the visualized portion of the SI joints. No adenopathy or prominent aortic dilatation apparent in [id number]. There is suggestion of some minor ectasia of the infrarenalaorta. IMPRESSION: Mildly progressive degenerative changes across the L4-5 disc space withsome mild mass effect on the thecal sac and mildly progressive foraminalnarrowing bilaterally. Some progressive hypertrophic changes of the leftL5-S1 facet but not near the foramen or canal. No other abnormalityidentified to account for the symptoms. Minimal fusiform ectasia of theinfrarenal aorta. TOTAL CTDIvol: 50.8 mGy POS - [id number] Edited by: Felicity Bal on 07/13/2018 12:45 PM us Steve Larson MD IMG CT XSPECIALTY ORDER JAQUI Final Result documented in this encounter Visit Diagnoses Diagnosis Low back pain, unspecified back pain laterality, unspecified chronicity, with sciatica presence unspecified Low back pain, unspecified back pain laterality, unspecified chronicity, with sciatica presence unspecified documented in this encounter Care Teams Rotary Helper Relationship Specialty Start Date End Date Pcp, Unknown PCP - General 06/24/18 07/12/18 Ben Hoffman MD [address] [place] [address] [place] [address] PCP - General Internal Medicine 07/13/18 documented as of this encounter Additional Source Comments The information contained in this document represents components of the legal health record. It is not the complete legal health record.[facility]
--- OUTSIDE RECORDS SUMMARY | 2025-06-26 13:21 | XMS_ITS | Encounter Summary ---
Author Organization [facility] Address [address] [place] [address] Phone Care Team Providers Care Audio Visual Equipment Rental Clerk Name Role Phone Ben Hoffman MD Primary Care Provider Encounter Details Date Type Department Care Team (Late st Contact Info) Description 10/06/2018 Ancillary Orders [facility], X-Ray - [facility] [address] [place] [address] Steve Larson MD [address] [place] [address] [email or web address] Social History Tobacco Use Types Packs/Day Years Used Date Smoking Tobacco: Never Assessed Sex and Gender Information Value Date Recorded Sex Assigned at Not on file Legal Sex Male 9:36 PM EDT Gender Identity Not on file Sexual Orientation Not on file documented as of this encounter Plan of Treatment Not on file documented as of this encounter Results * XR HIP 2 VW RIGHT PLUS PELVIS (10/06/2018 12:41 PM EST) Anatomical Region Laterality Modality Hip, Pelvis Radiographic Merna ging 10/06/2018 1:23 PM EST Impressions 10/06/2018 1:26 PM EST Mild osteoarthritic changes of bilateral hip joints, not significantly changed from 2013. POS - [id number] Narrative 10/06/2018 1:26 PM EST EXAM: XR HIP 2 VW RIGHT PLUS PELVIS COMPARISON: December 07, 2013 FINDINGS: No acute fractures or destructive bone lesions. Mild sclerotic changes of bilateral acetabula are similar to prior study in 2014. Bilateral sacroiliac joints and pubic symphysis are congruent. Enthesopathy at the level of bilateral iliac crests. Procedure Note Ifrah Houston MD - 10/06/2018 EXAM: XR HIP 2 VW RIGHT PLUS PELVIS COMPARISON: December 07, 2013 FINDINGS: No acute fractures or destructive bone lesions. Mild sclerotic changes ofbilateral acetabula are similar to prior study in 2014. Bilateralsacroiliac joints and pubic symphysis are congruent. Enthesopathy at thelevel of bilateral iliac crests. IMPRESSION: Mild osteoarthritic changes of bilateral hip joints, not significantlychanged from 2014. POS - [id number] Steve Larson MD IMG XR PELVIS Final R esult documented in this encounter Visit Diagnoses Diagnosis Pain Generalized pain Pain Generalized pain documented in this encounter Care Teams Audio Visual Equipment Rental Clerk Relationship Specialty Start Date End Date Ben Hoffman MD [address] [place] [address] [place] [address] PCP - General Internal Medicine 07/13/18 documented as of this encounter Additional Source Comments The information contained in this document represents components of the legal health record. It is not the complete legal health record.[facility]
--- OUTSIDE RECORDS SUMMARY | 2025-06-26 13:21 | XMS_ITS | Clinical Summary ---
Author Organization [facility] Address [address] [place] [address] Phone Care Team Providers Care Business Lawyer Name Role Phone Ben Hoffman MD Primary Care Provider Allergies Active Allergy Reactions Criticality Noted Date Comments Meloxicam 11/21/2020 Stomach ulcer Penicillins 11/21/2020 Medications gabapentin (NEURONTIN) 100 MG capsule Take 100 mg by mouth 3 (three) times a day. Active atorvastatin (LIPITOR) 10 MG tablet Take 10 mg by mouth daily. Active clopidogrel (PLAVIX) 75 mg tablet Take 75 mg by mouth daily. Active metoprolol succinate (TOPROL-XL) 50 MG 24 hr tablet Take 50 mg by mouth daily. Active aspirin 81 MG EC tablet Take 81 mg by mouth daily. Active omeprazole (PRILOSEC) 20 mg TbEC Take 20 mg by mouth 2 (two) times a day. Active baclofen (LIORESAL) 10 MG tablet Take 10 mg by mouth daily. 04/14/2021 Active rOPINIRole (REQUIP) 1 MG tablet take 1 tablet by mouth everyday at bedtime 01/10/2025 Active Active Problems No known active problems Social History Tobacco Use Types Packs/Day Years Used Date Smoking Tobacco: Never Smokeless Tobacco: Never Tobacco Cessation:Counseling Given: Not Answered Alcohol Use Standard Drinks/Week Comments Not Currently 0 (1 standard drink = 0.6 oz pur e alcohol) Education Answer Date Recorded Are you interested in more education? Not on bridget e 01/29/2023 Are you concerned about learning? Not on file 01/29/2023 No 01/29/2023 No 01/29/2023 Digital Access Answer Date Recorded No 02/27/2023 No 02/27/2023 Reliable internet access at home? Not on file 02/27/2023 Device with a working camera? Not on file Sex and Gender Information Value Date Recorded Sex Assigned at Not on file Legal Sex Male 9:36 PM EDT Gender Identity Not on file Sexual Orientation Not on file Last Filed Vital Signs Vital Sign Reading Time Taken Comments Blood Pressure - - Pulse - - Temperature - - Respiratory Rate - - Oxygen Saturation - - Inhaled Oxygen Concentration - - Weight 122.9 kg (271 lb) 01/19/2025 11:09 AM EDT Height 172.7 cm (5' 8 ) 01/19/2025 11:09 AM EDT Body Mass Index 41.21 01/19/2025 11:09 AM EDT Plan of Treatment Health Maintenance Due Date Last Done Comments Adult Td,Tdap Booster 1969 LIPID PANEL 1969 DEPRESSION SCREENING 1981 HEPATITIS C SCREENING 1987 HIV ONE-TIME SCREENING (18-6 5 YEARS) 1987 SCREENING FOR DIABETES 2004 COLOGUARD 2014 COLONOSCOPY 2014 COLORECTAL CANCER SCREENING 2014 FIT TEST 2014 FOBT 2014 SIGMOIDOSCOPY 2014 VIRTUAL COLONOSCOPY 2014 PNEUMOCOCCAL VACCINES (50+ years) (1 of 1 - PCV) 2019 ZOSTER VACCINES (1 of 2) 2019 INFLUENZA VACCINE (#1) 2025 COVID-19 VACCINE (3 - 2024-2 6 season) 2025 06/24/2021, 06/03/2021 SMOKING STATUS SCREENING (On ce After 26 Yrs) Completed 01/19/2025 HEPATITIS A VACCINES Aged Out No long er eligible based on patient's age to complete this topic HIB VACCINES Aged Out No longer eligi ble based on patient's age to complete this topic MENINGOCOCCAL VACCINES (ACWY) Aged Out No longer eligible based on patient's age to complete this topic MENINGOCOCCAL VACCINES (B) Aged Out N o longer eligible based on patient's age to complete this topic Medical Devices Not on file Insurance MEDICARE PART A & [place] [facility] B [facility] MEDICARE PART A & B Member Subscriber Plan / Payer (Ef fective 2011-Present) Name:Yony Justice Member ID:[id number] Relation to Subscriber:Self Name:Yony Justice Subscriber ID:[id number] Payer ID:[id number] Group ID:Not on file Type:Medicare Address: [employer] [address] & B Member Subscriber Plan / Payer (Ef fective 2011-Present) Name:Yony Justice Member ID:[id number] Relation to Subscriber:Self Name:Yony Justice Subscriber ID:[id number] Payer ID:[id number] Group ID:Not on file Type:Medicare Address: [employer] [address] [place] PART A & B [facility] A & B [facility] Care Teams Business Lawyer Relationship Specialty Start Date End Date Ben Hoffman MD [address] [place] [address] [place] [address] PCP - General Internal Medicine 07/13/18 Additional Source Comments The information contained in this document represents components of the legal health record. It is not the complete legal health record.[facility]
--- OUTSIDE RECORDS SUMMARY | 2025-06-26 13:21 | XMS_ITS | Encounter Summary ---
Author Organization [facility] Address [address] [place] [address] Phone Care Team Providers Care Environmental Services Director Name Role Phone Ben Hoffman MD Primary Care Provider Encounter Details Date Type Department Care Team (Late st Contact Info) Description 11/02/2019 Ancillary Orders [facility], X-Ray - [address] [address] Steve Larson MD [address] [place] [address] [email or web address] Pain in right hip Social History Tobacco Use Types Packs/Day Years [...] XR HIP 2 VW RIGHT PLUS PELVIS (11/02/2019 12:17 PM EST) Anatomical Region Laterality Modality Hip, Pelvis Radiographic Merna ging 11/02/2019 12:2 6 PM EST Impressions 11/02/2019 12:29 PM EST No significant change. POS - [id number] Narrative 11/02/2019 12:29 PM EST EXAM: XR HIP 2 VW RIGHT PLUS PELVIS HISTORY: XR HIP/PELVIS RIGHT 2-3 VIEWS PAIN IN RIGHT HIP COMPARISON: 10/06/2018 FINDINGS: There is an electronic artifact projecting over the left iliac bone. There is no acute fracture or dislocation. Subtle narrowing of the right hip joint space is similar. A small subcentimeter lucency within the superior right femoral head is unchanged and may represent a small subchondral cyst. No focal periosteal reaction or osteopenia. A few small periarticular calcifications are again noted. Procedure Note Taiwo Fowler MD - 11/02/2019 EXAM: XR HIP 2 VW RIGHT PLUS PELVIS HISTORY: XR HIP/PELVIS RIGHT 2-3 VIEWS PAIN IN RIGHT HIP COMPARISON: 10/06/2018 FINDINGS: There is an electronic artifact projecting over the left iliacbone. There is no acute fracture or dislocation. Subtle narrowing of the righthip joint space is similar. A small subcentimeter lucency within thesuperior right femoral head is unchanged and may represent a smallsubchondral cyst. No focal periosteal reaction or osteopenia. A few small periarticular calcifications are again noted. IMPRESSION: No significant change. POS - [id number] Steve Larson MD IMG XR PELVIS Final R esult documented in this encounter Visit Diagnoses Diagnosis Pain in right hip Pain in right hip documented in this encounter Care Teams Environmental Services Director Relationship Specialty Start Date End Date Ben Hoffman MD [address] [place] [address] [place] [address] PCP - General Internal Medicine 07/13/18 documented as of this encounter Additional Source Comments The information contained in this document represents components of the legal health record. It is not the complete legal health record.[facility]
--- OUTSIDE RECORDS SUMMARY | 2025-06-26 13:22 | XMS_ITS | Encounter Summary ---
Author Organization [facility] Address [address] [place] [address] Phone Care Team Providers Care Reconcilement Clerk Name Role Phone Ben Hoffman MD Primary Care Provider Encounter Details Date Type Department Care Team ([facility] st Contact Info) Description 02/03/2021 Ancillary Orders [facility] Medicine [address] [place] [address] Crissy Gary MD [address] [place] [address] Orthopedics & Sports Medicine, [facility] [place] [address] [email or web address] Social History Tobacco Use Types Packs/Day Years Used Date Smoking Tobacco: Never Smokeless Tobacco: Never Sex and Gender Information Value Date Recorded Sex Assigned at Not on file Legal Sex Male 9:36 PM EDT Gender Identity Not on file Sexual Orientation Not on file documented as of this encounter Plan of Treatment Not on file documented as of this encounter Visit Diagnoses Not on filedocumented in this encounter Care Teams Reconcilement Clerk Relationship Specialty Start Date End Date Ben Hoffman MD [address] [place] [address] [place] [address] PCP - General Internal Medicine 07/13/18 documented as of this encounter Additional Source Comments The information contained in this document represents components of the legal health record. It is not the complete legal health record.[facility]
--- OUTSIDE RECORDS SUMMARY | 2025-06-26 13:22 | XMS_ITS | Encounter Summary ---
Author Organization [facility] Address [address] [place] [address] Phone Care Team Providers Care Nursing Professor Name Role Phone Ben Hoffman MD Primary Care Provider Encounter Details Date Type Department Care Team (Late st Contact Info) Description 02/03/2021 Ancillary Orders [address] [address] Crissy Gary MD [address] [place] [address] Orthopedics & Sports Medicine, [place] [address] [email or web address] Hip pain, chronic, right Social History Tobacco Use Types Packs/Day Years Used Date Smoking Tobacco: Never Smokeless Tobacco: Never Sex and Gender Information Value Date Recorded Sex Assigned at Not on file Legal Sex Male 9:36 PM EDT Gender Identity Not on file Sexual Orientation Not on file documented as of this encounter Plan of Treatment Not on file documented as of this encounter Visit Diagnoses Diagnosis Hip pain, chronic, right documented in this encounter Care Teams Nursing Professor Relationship Specialty Start Date End Date Ben Hoffman MD [address] [place] [address] [place] [address] PCP - General Internal Medicine 07/13/18 documented as of this encounter Additional Source Comments The information contained in this document represents components of the legal health record. It is not the complete legal health record.[facility]
== END 2025-06-26 11:32 | disposition home or self-care (01) ==
LOC: HO.HMCHD 10:50
PROVIDERS: PCP Student in an Organized Health Care Education/Training Program; Visit Provider Student in an Organized Health Care Education/Training Program
DX: M79.604 Pain in right leg (principal); M79.605 Pain in left leg; I25.10 Atherosclerotic heart disease of native coronary artery without angina pectoris; Z95.5 Presence of coronary angioplasty implant and graft; K21.9 Gastro-esophageal reflux disease without esophagitis; E29.1 Testicular hypofunction; N52.9 Male erectile dysfunction, unspecified; M18.11 Unilateral primary osteoarthritis of first carpometacarpal joint, right hand; E78.49 Other hyperlipidemia; G25.81 Restless legs syndrome

== ENCOUNTER → 2025-06-26 10:50 | Outpatient (BNVA) | payer MEDICARE, MEDICAID, SELFPAY | PROVIDERS: PCP Internal Medicine; Visit Provider Student in an Organized Health Care Education/Training Program | DX: M79.604 Pain in right leg (principal); M79.605 Pain in left leg; I25.10 Atherosclerotic heart disease of native coronary artery without angina pectoris; K21.9 Gastro-esophageal reflux disease without esophagitis; E29.1 Testicular hypofunction; N52.9 Male erectile dysfunction, unspecified; M18.11 Unilateral primary osteoarthritis of first carpometacarpal joint, right hand; E78.49 Other hyperlipidemia; G25.81 Restless legs syndrome; Z79.02 Long term (current) use of antithrombotics/antiplatelets; Z79.82 Long term (current) use of aspirin; Z79.899 Other long term (current) drug therapy; Z95.5 Presence of coronary angioplasty implant and graft | CPT/HCPCS: 99212 ==

== ENCOUNTER 2025-06-26 11:41 | Outpatient (REF) | payer MEDICARE, MEDICAID, SELFPAY ==
[2025-06-26 13:21] LABS: D Dimer High Sensitivity < 150 NG/ML
[2025-06-26 13:53] LABS: Iron 63 mcg/dL (45-160); Percent Iron Saturation 25 % (15-50); Total Iron Binding Capacity 254 mcg/dL (228-428); Unsaturated Iron Binding 191 ug/dL; Uric Acid 5.0 mg/dL (3.4-7.0)
== END 2025-06-26 11:42 | disposition home or self-care (01) ==
LOC: HO.10HDL 11:41
PROVIDERS: Visit Provider Student in an Organized Health Care Education/Training Program
DX: M79.604 Pain in right leg (principal); M79.605 Pain in left leg; G25.81 Restless legs syndrome
CPT/HCPCS: 36415; 83540; 84550; 85379

== ENCOUNTER 2025-06-28 15:05 | Outpatient (REF) | payer MEDICARE, MEDICAID, SELFPAY ==
--- NOTE | ~2025-06-28 | US_ITS ---
EXAMINATION: US TRIPLEX LOWER EXTREMITY, BILATERAL CLINICAL INFORMATION: Pain, lower extremities COMPARISON: None available. TECHNIQUE: Color-flow triplex imaging with spectral analysis and compression Doppler were performed on the bilateral lower extremities. FINDINGS: Respiratory variation, normal compression and augmented flow are demonstrated in the interrogated common femoral vein, superficial femoral vein, profunda femoral vein, popliteal vein and midcalf peroneal and posterior tibial venous segments both lower extremities. There is no Kim's cyst. US/US venous duplex LE BI IMPRESSION: No acute deep venous thrombosis interrogated veins, bilateral lower extremities. Negative for DVT. Electronically signed by: Bishop Hannon MD 06/28/2025 03:43 PM EDT
--- NOTE | ~2025-06-28 | XR_ITS ---
EXAMINATION: XR KNEE, LEFT CLINICAL INFORMATION: Pain in left leg COMPARISON: April 28, 2021 TECHNIQUE: AP lateral and sunrise views of the left knee. FINDINGS: Joint space narrowing involving mostly the medial compartment with mild sclerosis along the articular surface. No acute cortical disruption or malalignment. Well-corticated soft tissue calcifications in the inferior patella at the patellar tendon insertion. No suprapatellar bursa joint effusion. No lytic or blastic lesions. XR/XR knee LT 3V IMPRESSION: Calcific tendinosis/tendinopathy, patella tendon. Mild medial compartment osteoarthrosis/osteoarthritis. Electronically signed by: Bishop Hannon MD 06/28/2025 03:57 PM EDT
--- OUTSIDE RECORDS SUMMARY | 2025-06-28 19:23 | XMS_ITS | Encounter Summary ---
Author Organization [facility] Address [address] [place] [address] Phone Care Team Providers Care Compound Machine Operator Name Role Phone Ben Hoffman MD Primary Care Provider Encounter Details Date Type Department Care Team (Late st Contact Info) Description 11/02/2019 Ancillary Orders [facility], X-Ray - [address] [address] Steve Larson MD [address] [place] [address] [email or web address] Pain in right hip Social History [...] PM EST No significant change. POS - [id number] Narrative 11/02/2019 12:29 PM EST EXAM: XR [...] noted. IMPRESSION: No significant change. POS - [id number] Steve Larson MD IMG XR PELVIS Final R esult documented in this encounter Visit Diagnoses Diagnosis Pain in right hip Pain in right hip documented in this encounter Care Teams Compound Machine Operator Relationship Specialty Start Date End Date Ben Hoffman MD [address] [place] [address] [place] [address] PCP - General Internal Medicine 07/13/18 documented as of this encounter Additional Source Comments The information contained in this document represents components of the legal health record. It is not the complete legal health record.[facility]
--- OUTSIDE RECORDS SUMMARY | 2025-06-28 19:23 | XMS_ITS | Encounter Summary ---
Author Organization [facility] Address [address] [place] [address] Phone Care Team Providers Care Marketing Programs Manager Name Role Phone Pcp, Unknown Primary Care Provider Ben Kenny MD Primary Care Provider Encounter Details Date Type Department Care Team (Late st Contact Info) Description 06/24/2018 Ancillary Orders [facility] [address] [place] [address] Steve Larson MD [address] [place] [address] [email or web address] Low back pain, unspecified back pain laterality, [...] or prominent aortic dilatation apparent in the [id number]. There is suggestion of some minor ectasia [...] is progressive hypertrophic change about the left-sided L5-[id number] joint. No progressive disc height loss. No progressive canal orforaminal stenosis. No bony destructive lesions identified. No compression deformity. No grosssclerosis or erosion in the visualized portion of the SI joints. No adenopathy or prominent aortic dilatation apparent in [id number]. There is suggestion of some minor ectasia [...] unspecified documented in this encounter Care Teams Marketing Programs Manager Relationship Specialty Start Date End Date Pcp, Unknown PCP - General 06/24/18 07/12/18 Ben Hoffman MD [address] [place] [address] [place] [address] PCP - General Internal Medicine 07/13/18 documented as of this encounter Additional Source Comments The information contained in this document represents components of the legal health record. It is not the complete legal health record.[facility]
--- OUTSIDE RECORDS SUMMARY | 2025-06-28 19:23 | XMS_ITS | Clinical Summary ---
Author Organization [facility] Address [address] [place] [address] Phone Care Team Providers Care Fried Cake Maker Name Role Phone Ben Hoffman MD Primary [...] B [place] & [facility] PART A & B Member Subscriber Plan / Payer (Ef fective 2011-Present) Name:Yony Justice Member ID:[id number] Relation to Subscriber:Self Name:Yony Justice Subscriber ID:[id number] Payer ID:[id number] Group ID:Not on file Type:Medicare Address: [place] [employer] [address] A & B Member Subscriber Plan / Payer (Ef fective 2011-Present) Name:Yony Justice Member ID:[id number] Relation to Subscriber:Self Name:Yony Justice Subscriber ID:[id number] Payer ID:[id number] Group ID:Not on file Type:Medicare Address: [place] [employer] [address] [place] MED[place] PART A & B [facility]IC[facility] & B [facility] Care Teams Fried Cake Maker Relationship Specialty Start Date End Date Ben Hoffman MD [address] [place] [address] [place] [address] PCP - General Internal Medicine 07/13/18 Additional Source Comments The information contained in this document represents components of the legal health record. It is not the complete legal health record.[facility]
--- OUTSIDE RECORDS SUMMARY | 2025-06-28 19:23 | XMS_ITS | Encounter Summary ---
Author Organization [facility] Address [address] [place] [address] Phone Care Team Providers Care Resin Shaver Name Role Phone Ben Hoffman MD Primary Care Provider Encounter Details Date Type Department Care Team ([facility] st Contact Info) Description 02/03/2021 Ancillary Orders [facility] Orthopedics & Sports Medicine [address] [place] [address] Crissy Gary MD [address] [place] [address] Orthopedics & Sports Medicine, [facility] [place] [address] [email or web address] Social History Tobacco Use Types Packs/Day Years [...] on filedocumented in this encounter Care Teams Resin Shaver Relationship Specialty Start Date End Date Ben Hoffman MD [address] [place] [address] [place] [address] PCP - General Internal Medicine 07/13/18 documented as of this encounter Additional Source Comments The information contained in this document represents components of the legal health record. It is not the complete legal health record.[facility]
--- OUTSIDE RECORDS SUMMARY | 2025-06-28 19:23 | XMS_ITS | Encounter Summary ---
Author Organization [facility] Address [address] [place] [address] Phone Care Team Providers Care Strickler Attendant Name Role Phone Ben Hoffman MD Primary Care Provider Encounter Details Date Type Department Care Team (Late st Contact Info) Description 02/03/2021 Ancillary Orders [address] [address] Crissy Gary MD [address] [place] [address] Orthopedics & Sports Medicine, [place] [address] [email or web address] Hip pain, chronic, right Social [...] right documented in this encounter Care Teams Strickler Attendant Relationship Specialty Start Date End Date Ben Hoffman MD [address] [place] [address] [place] [address] PCP - General Internal Medicine 07/13/18 documented as of this encounter Additional Source Comments The information contained in this document represents components of the legal health record. It is not the complete legal health record.[facility]
--- OUTSIDE RECORDS SUMMARY | 2025-06-28 19:23 | XMS_ITS | Encounter Summary ---
Author Organization [facility] Address [address] [place] [address] Phone Care Team Providers Care Concrete Products Dispatcher Name Role Phone Ben Hoffman MD Primary Care Provider Encounter Details Date Type Department Care Team (Late st Contact Info) Description 10/06/2018 Ancillary Orders [facility], X-Ray - [facility] [address] [place] [address] Steve Larson MD [address] [place] [address] [email or web address] Social History Tobacco Use Types Packs/Day [...] pain documented in this encounter Care Teams Concrete Products Dispatcher Relationship Specialty Start Date End Date Ben Hoffman MD [address] [place] [address] [place] [address] PCP - General Internal Medicine 07/13/18 documented as of this encounter Additional Source Comments The information contained in this document represents components of the legal health record. It is not the complete legal health record.[facility]
--- OUTSIDE RECORDS SUMMARY | 2025-06-28 19:23 | XMS_ITS | Encounter Summary ---
Author Organization [facility] Address [address] [place] [address] Phone Care Team Providers Care Inletter Name Role Phone Pcp, Unknown Primary Care Provider Ben Kenny MD Primary Care Provider Encounter Details Date Type Department Care Team (Late st Contact Info) Description 06/24/2018 Procedure [facility] Ct Scan - [address] [address] Social History Tobacco Use Types Packs/Day Years [...] on filedocumented in this encounter Care Teams Inletter Relationship Specialty Start Date End Date Pcp, Unknown PCP - General 06/24/18 07/12/18 Ben Hoffman MD [address] [place] [address] [place] [address] PCP - General Internal Medicine 07/13/18 documented as of this encounter Additional Source Comments The information contained in this document represents components of the legal health record. It is not the complete legal health record.[facility]
== END 2025-06-28 15:06 | disposition home or self-care (01) ==
LOC: HO.US 15:05
PROVIDERS: PCP Student in an Organized Health Care Education/Training Program; Visit Provider Student in an Organized Health Care Education/Training Program
DX: M79.604 Pain in right leg (principal); M79.605 Pain in left leg
CPT/HCPCS: 73562; 93970

== ENCOUNTER → 2025-06-28 15:38 | Outpatient (BNV) | payer MEDICARE, MEDICAID, SELFPAY | PROVIDERS: PCP Student in an Organized Health Care Education/Training Program; Visit Provider Radiology Diagnostic Radiology | DX: M79.661 Pain in right lower leg (principal); M79.662 Pain in left lower leg; M76.52 Patellar tendinitis, left knee | CPT/HCPCS: 73562; 93970 ==

== ENCOUNTER 2025-08-20 15:29 | Outpatient (AMB) | payer MEDICARE, MEDICAID, SELFPAY ==
[2025-08-20 15:34] VITALS: BP 120/74; PULSE 77; BMI 41.2
--- NOTE | 2025-08-20 15:34 | A.OFFVIS_ITS ---
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 Required: No Accompanied by: Self / Same As Patient Allergies meloxicam (From MOBIC) Allergy (Severe, Verified 08/20/25 15:38) GI BLEED Penicillins Allergy (Severe, Verified 08/20/25 15:38) ANAPHYLAXIS Medication List - Last Reconciled 08/20/25 by Natalya Walker, DAIRY FEED WORKER-C albuterol sulfate 90 mcg/actuation (Ventolin HFA) 2 puffs inhalation DAILY PRN aspirin (Julia Chewable Low Dose Aspirin) 81 mg PO DAILY atorvastatin 40 mg PO DAILY bisacodyl (Dulcolax (bisacodyl)) 10 mg (2 x 5 mg) PO BEDTIME clopidogrel 75 mg PO DAILY famotidine 20 mg PO BEDTIME gabapentin 600 mg PO TID metoprolol succinate ER 25 mg PO DAILY pantoprazole 40 mg PO QAM polyethylene glycol 3350 (Miralax) 238 grams PO ONCE ropinirole 1 mg PO BEDTIME tadalafil 20 mg PO ONCE PRN 30 days tadalafil 5 mg PO DAILY 90 days HPI HPI pre-op-EGD/[place]: Details: Yony is a 54-year-old male past medical history of obesity, hyperlipidemia, CAD with RCA stent who presents for follow-up and preop cardiovascular clearance for EGD and colonoscopy. Today he reports that he has been doing well since his last visit. He denies any chest discomfort at rest or with activity. No concerning shortness of breath, PND, orthopnea or edema. No heart palpitations, lightheadedness, presyncope, syncope. He did have a mechanical near fall and lupe his left knee approximately 10 days ago. Three days ago he started with swelling in pain in his left calf. He reports compliance with his medications. Taking all meds as directed. [facility] Medical History Restless leg syndrome Hyperlipidemia Osteoarthritis of carpometacarpal joint of left thumb Laceration of skin of right knee without complication Migraine On beta bj at home Elevated cholesterol Vitamin D deficiency History of depression Thalamic pain syndrome Hx of hypogonadism Neuropathy CAD (coronary artery disease) Osteoarthritis GERD (gastroesophageal reflux disease) Hx of colonic polyps IBS (irritable colon syndrome) Surgical History Hx of colonoscopy (~09/25/22) History of rectal sphincterotomy History of shoulder surgery History of open reduction and internal fixation (ORIF) procedure History of ankle surgery History of carpal tunnel surgery of left wrist History of tonsillectomy History of heart artery stent Hx of colonoscopy with polypectomy History of esophagogastroduodenoscopy (EGD) Status post angioplasty Family History Father Heart attack Mother Heart attack Sister Mental health disorder Social History Household Members: None Housing: House Are you a primary career counselor to a significant other at home: No Do you presently have visiting nurse or other home services: Yes (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) Alcohol intake: current Alcohol intake frequency: does not drink Alcohol type: beer Patient Tobacco Use Status: Never used Tobacco e-Cigarette/Vaping Use: Never Used Substance Use Type: Marijuana service: No Current occupational status: disabled Cognitive needs: No Hearing needs: No Vision needs: Yes (rx glasses) Review of Systems Const All systems reviewed & are unremarkable except as noted in HPI and below Denies daytime sleepiness, Denies difficulty sleeping, Denies snoring, Denies stops breathing during sleep and Denies weakness Card Denies chest pain, Denies rapid heart rate, Denies irregular heart rhythm, Denies claudication, Denies leg edema, Denies lightheadedness, Denies palpitations, Denies dyspnea, Denies dyspnea on exertion, Denies orthopnea, Denies paroxysmal nocturnal dyspnea and Denies slow heart rate Resp Denies cough, Denies dyspnea, Denies dyspnea on exertion and Denies snoring GI Reports no additional complaints, Denies hematochezia, Denies change in stool character and Denies dyspepsia Musc Details: Left knee pain - pain and swelling in left calf Reports abnormal gait, Reports limited range of motion, Denies muscle weakness and Denies numbness Neuro Reports abnormal gait, Denies numbness and Denies weakness Endo Denies palpitations Physical Exam Vital Signs: Last Vital Signs Pulse 77 08/20/25 15:34 BP 120/74 08/20/25 15:34 BMI result Body Mass Index 41.2 Const General: cooperative, healthy appearing, comfortable and no acute distress Orientation/consciousness: patient oriented x3 Neck Neck: Yes normal visual inspection and Yes no JVD Resp Effort & Inspection: normal respiratory effort Auscultation: clear to auscultation bilaterally, no crackles, no rales, no rhonchi and no wheezes Cardio Jugular venous distension: no JVD Rate: regular rate Rhythm: regular rhythm Heart sounds: S1 normal heart sound present, S2 normal heart sound present, no murmurs and no rubs Neuro General: patient oriented x3 Extrem Other: Left calf with firmness and tenderness to palpation. Does have reported injury to left knee. Psych Appearance: grossly normal Mental Status: mental status grossly normal Speech and movement: Normal speech and movement present Office Procedures EKG Details: Today, read by me, Normal sinus rhythm, rate 77, Qtc 450ms [id number], Complete Assessment & Plan Assessment & Plan (1) CAD (coronary artery disease): Comment: Follows with the Cardiology Status post PCI - Continue aspirin and atorvastatin for further management. Code(s): I25.10 - Atherosclerotic heart disease of [place] coronary artery without angina pectoris Category: Medical Qualifiers: Coronary Disease-Associated Artery/Lesion type: [place] artery [place] vs. transplanted heart: [place] heart Associated angina: without angina Qualified Code(s): I25.10 - Atherosclerotic heart disease of [place] coronary artery without angina pectoris Plan: Prior reports of chest discomfort with radiation to his arms, with abnormal nuclear stress test. Cardiac catheterization 06/24/2020 which showed LAD 50% stenosis, distal RCA 99% stenosis treated with stent across the PL to the PDA. He has done very well since that time without any recurrent anginal symptoms. Last echocardiogram done 05/30/2020 showed EF 60-65%, no valve abnormalities and no regional wall motion abnormalities. EKG done today showing normal sinus rhythm with no acute ST or T-wave abnormalities, rate 77. He has been on dual antiplatelet therapy by his choice. He is now willing to stop Plavix. Will have him continue aspirin. Continue atorvastatin with ideal LDL goal less than 70. Continue metoprolol. Signs and symptoms of angina reviewed. Cardiology follow-up in 1 year, sooner if needed (2) History of heart artery stent: Comment: - S/p PCI on 06/[address] to right PDA - On Plavix (Has completed treatment, however patient would like to continue ciera ing his medications since he reports he feels well) Code(s): Z95.5 - Presence of coronary angioplasty implant and graft Category: Surgical Plan: As above (3) Elevated cholesterol: Code(s): E78.00 - Pure hypercholesterolemia, unspecified Category: Medical Plan: [place] LDL goal less than 70. Labs done 03/30/2025 showed LDL 67, normal LFT. Continue atorvastatin 40 mg daily. (4) Preop cardiovascular exam: Code(s): Z01.810 - Encounter for preprocedural cardiovascular examination Category: Medical Plan: Preop for EGD and colonoscopy. He may proceed with intermediate cardiac risk. He will be stopping Plavix. Aspirin can be held as needed for the procedure and restart as soon as cleared by GI to do so. Continue metoprolol and atorvastatin. Call/consult Cardiology if needed. (5) Pain of left calf: Code(s): M79.662 - Pain in left lower leg Category: Medical Plan: Pain in left calf several days after injury to left knee. This could be musculoskeletal however with his current calf tenderness and swelling will order stat ultrasound to assess for DVT. Plan Time spent on chart review, documentation, interview and assessment Orders: Orders US venous duplex LE LT Today M79.662 - Pain in left lower leg Medications: Discontinued clopidogrel Discontinued Reason: Doctor's Order 75 mg PO DAILY 90 tabs 3RF I25.10 - Atherosclerotic heart disease of [place] coronary artery without angina pectoris Coding Level of Care Code Est Pt Level 4 (03134) Complex EM visit Add On G2211 Diagnoses Coronary artery disease involving [place] coronary artery of [place] heart without angina pectoris I25.10 Coronary Disease-Associated Artery/Lesion type: [place] artery [place] vs. transplanted heart: [place] heart Associated angina: without angina History of heart artery stent Z95.5 Elevated cholesterol E78.00 Preop cardiovascular exam Z01.810 Pain of left calf M79.662 CPT Codes EKG - CPT: [id number], Complete ([id number]) Time Spent (min) 32
== END 2025-08-20 16:13 | disposition home or self-care (01) ==
LOC: HO.HCS 15:30
PROVIDERS: PCP Student in an Organized Health Care Education/Training Program; Visit Provider Nurse Practitioner Family
DX: I25.10 Atherosclerotic heart disease of native coronary artery without angina pectoris (principal); Z95.5 Presence of coronary angioplasty implant and graft; E78.00 Pure hypercholesterolemia, unspecified; Z01.810 Encounter for preprocedural cardiovascular examination; M79.662 Pain in left lower leg
CPT/HCPCS: 93010; 99214; G2211

== ENCOUNTER → 2025-08-20 15:29 | Outpatient (BNVA) | payer MEDICARE, MEDICAID, SELFPAY | PROVIDERS: PCP Student in an Organized Health Care Education/Training Program; Visit Provider Nurse Practitioner Family | DX: Z01.810 Encounter for preprocedural cardiovascular examination (principal); I25.10 Atherosclerotic heart disease of native coronary artery without angina pectoris; E78.00 Pure hypercholesterolemia, unspecified; M79.662 Pain in left lower leg; Z95.5 Presence of coronary angioplasty implant and graft | CPT/HCPCS: 93005; 99212 ==

== ENCOUNTER 2025-08-21 15:15 | Outpatient (REF) | payer MEDICARE, MEDICAID, SELFPAY ==
--- NOTE | ~2025-08-21 | US_ITS ---
EXAMINATION: US TRIPLEX LOWER EXTREMITY, LEFT CLINICAL INFORMATION: Left lower extremity pain. Twisting injury to knee a few days ago. COMPARISON: None available. TECHNIQUE: Color-flow triplex imaging with spectral analysis and compression Doppler were performed on the left lower extremity. FINDINGS: Respiratory variation, normal compression and augmented flow are noted throughout the left lower extremity. The visualized common femoral vein, superficial femoral vein, profunda femoral vein, popliteal vein and midcalf peroneal and posterior tibial venous segments show no evidence of deep venous thrombosis. There is no Kim's cyst. There is a hypoechoic fluid area measuring 9.2 x 0.8 x 4.2 cm in the left medial proximal calf, most likely representing a small hematoma/muscle tear. US/US venous duplex LE IMPRESSION: 1. No evidence of deep venous thrombosis involving the left lower extremity. 2. Linear fluid collection as detailed in the left superficial medial gastroc muscle, most likely representing a small hematoma/muscle tear. Electronically signed by: Juvencio Carranza MD 08/21/2025 04:27 PM ALECIA
== END 2025-08-21 15:16 | disposition home or self-care (01) ==
LOC: HO.US 15:15
PROVIDERS: PCP Student in an Organized Health Care Education/Training Program; Visit Provider Nurse Practitioner Family
DX: M79.662 Pain in left lower leg (principal)
CPT/HCPCS: 93971

== ENCOUNTER → 2025-08-21 15:16 | Outpatient (BNV) | payer MEDICARE, MEDICAID, SELFPAY | PROVIDERS: PCP Student in an Organized Health Care Education/Training Program; Visit Provider Radiology Diagnostic Radiology | DX: M79.662 Pain in left lower leg (principal) | CPT/HCPCS: 93971 ==

== ENCOUNTER 2025-09-25 11:00 | Outpatient (AMB) | payer MEDICARE, MEDICAID, SELFPAY ==
--- NOTE | 2025-09-25 11:07 | A.OFFPC_ITS ---
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 He reports spraining his knee and tearing a calf muscle approximately five weeks ago, for which he has been managed by an orthopedist and has been wearing an air cast. He continues to experience throbbing pain and swelling in the knee, which his orthopedist attributed to significant arthritis. An ultrasound performed for the leg swelling ruled out a blood clot. About two weeks ago, the patient struck his thigh on a gate, resulting in extensive bruising and a palpable, tender, hard lump. His medication regimen includes aspirin and Plavix. The patient reports that after stopping tadalafil for a few months, he experienced difficulty urinating associated with pain in the glans penis on straining. He resumed the medication one week ago and notes his urinary flow has returned to normal. Regarding his gastrointestinal health, the patient reports stomach pains and a loss of appetite at nighttime. He is scheduled to undergo an EGD and colonoscopy, for which he has received cardiac clearance. The patient has a history of coronary artery disease with stent placement. He expresses regret over prior non-adherence to simvastatin and is now reportedly religiously compliant with his cardiac medications. For chronic pain, he is on gabapentin 600 mg three times a day. He has a history of back problems treated with injections and a spinal cord stimulator implant. He has a history of ankle sprains from playing basketball but denies prior knee problems. Medical History: - Coronary artery disease - Hypertension - Hyperlipidemia - Gastroesophageal reflux disease - Chronic back pain - Osteoarthritis of the knee - History of calf muscle tear - History of ankle sprains - History of skin hypopigmentation follo wing injection Surgical History: - Coronary artery stent placement - Spinal cord stimulator implant for morales k pain - History of teeth removal Medications: - Gabapentin 600 mg three times a day fo r pain - Tadalafil 5 mg daily for urinary sympt oms - Tadalafil 20 mg as needed - Aspirin 81 mg daily for coronary arter y disease - Atorvastatin 40 mg for cholesterol - Plavix for coronary artery stents - Famotidine 20 mg for acid reflux - Metoprolol succinate 25 mg for blood p ressure - Pantoprazole 40 mg for acid reflux - Tylenol/Ibuprofen as needed for pain Family History: Family history was not discussed. Diagnostic Results: - Ultrasound of the leg: Negative for bl ood clot. Social History - The patient is a grandfather. - Activity: He tries to keep himself act stephen and has a history of playing basketball. [facility] Medical History (Updated 09/25/25 @ 12:31 by Pipe Eller MD) Chronic pain Abdominal pain Thigh contusion Restless leg syndrome Hyperlipidemia Osteoarthritis of carpometacarpal joint of left thumb Laceration of skin of right knee without complication Migraine On beta bj at home Elevated cholesterol Vitamin D deficiency History of depression Thalamic pain syndrome Hx of hypogonadism Neuropathy CAD (coronary artery disease) Osteoarthritis GERD (gastroesophageal reflux disease) Hx of colonic polyps IBS (irritable colon syndrome) Surgical History Hx of colonoscopy (~09/25/22) History of rectal sphincterotomy History of shoulder surgery History of open reduction and internal fixation (ORIF) procedure History of ankle surgery History of carpal tunnel surgery of left wrist History of tonsillectomy History of heart artery stent Hx of colonoscopy with polypectomy History of esophagogastroduodenoscopy (EGD) Status post angioplasty Family History Father Heart attack Mother Heart attack Sister Mental health disorder Social History Household Members: None Housing: House Are you a primary field care manager to a significant other at home: No Do you presently have visiting nurse or other home services: Yes (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 How many drinks containing alcohol do you have on a typical day when you are drinking?: 1 or 2 3. How often do you have six or more drinks on one occasion?: Less than monthly Total Score: 1 KIRBY-7 AMB Questionnaire KIRBY-7 Date KIRYB - 7 assessed: 01/29/25 Source: Developed by Drs. Steve Escobar, Bridget Patten, Haseeb Melendrez and colleagues, with an educational kade from [employer]. Review of Systems Narrative Review of Systems - Constitutional: Reports loss of appetite at nighttime. - Gastrointestinal: Reports stomach pains. - Genitourinary: Reports history of urinary hesitancy which has resolved with tadalafil. - Musculoskeletal: Reports throbbing knee pain. - Integumentary: Reports a tender, bruised, and hardened area on his thigh. All systems reviewed & are unremarkable except as reviewed in HPI and above Physical exam (Primary Care) Vital Signs: Last Vital Signs Temp 97.1 F 09/25/25 11:08 Pulse 84 09/25/25 11:08 Resp 16 09/25/25 11:08 BP 110/64 09/25/25 11:08 Pulse Ox 95 09/25/25 11:08 Oxygen Delivery Method Room Air 09/25/25 11:08 BMI result Body Mass Index 41.4 Tobacco/Smoking Status: Tobacco use Status Tobacco use date assessed 01/29/25 09/25/25 11:12 Patient Tobacco Use Status Never used Tobacco 09/25/25 11:12 e-Cigarette/Vaping Use Never Used 09/25/25 11:12 Thrive Assessment: Date of Thrive Assessment Date Thrive assessed 01/29/25 09/25/25 11:12 Narrative Physical Exam General: +Alert and oriented, Well nourished, No acute distress. Eye: Pupils are equal, round and reactive to light, Intact accommodation, Extraocular movements are intact, Normal conjunctiva, Vision unchanged. HENT: Normocephalic, Atraumatic, Tympanic membranes are clear, Normal hearing, Oral mucosa is moist, No pharyngeal erythema, Ear canals patent. Respiratory: Lungs CTA bilaterally, No wheeze, Respirations are non-labored. Cardiovascular: Regular rate, Regular rhythm, S1 auscultated, S2 auscultated, No murmur, Good pulses equal in all extremities, Normal peripheral perfusion, No edema. Gastrointestinal: Soft, Non-tender, Non-distended, Normal bowel sounds, No organomegaly. Musculoskeletal: Limited range of motion in the knee, Pain and swelling in the knee, No deformity, Normal gait. Integumentary: Warm, Dry, [place], Intact, Bruising noted on the thigh. Neurologic: Alert, Oriented, Normal sensory, Normal motor function, No focal defects, Cranial Nerves II-XII are grossly intact, Normal deep tendon reflexes. Psychiatric: Cooperative, Appropriate mood & affect, Normal judgment. Results AMB Urinalysis, Automated UA Leukoctes 15 Bernardo/uL Last Edit by Ariela Nunn [facility] on 09/25/25 12:00 UA Nitrite Negative Last Edit by Ariela Nunn [facility] on 09/25/25 12:00 UA Urobilinogen 0.2 mg/dL Last Edit by Ariela Nunn [facility] on 09/25/25 12:00 UA Protein 15 mg/dL Last Edit by Ariela Nunn [facility] on 09/25/25 12:00 UA pH 6.0 Last Edit by Ariela Nunn [facility] on 09/25/25 12:00 UA Blood 0 Nasim/uL Last Edit by Ariela Nunn [facility] on 09/25/25 12:00 UA Specific [place] 1.025 Last Edit by Ariela Nunn [facility] on 09/25/25 12:0 0 UA Ketone Negative Last Edit by Ariela Nunn [facility] on 09/25/25 12:00 UA Bilirubin 2 mg/dL Last Edit by Ariela Nunn [facility] on 09/25/25 12:00 UA Glucose 0 mg/dL Last Edit by Ariela Nunn [facility] on 09/25/25 12:00 Coding Level of Care Code Est Pt Level 4 (36935) Add On Problem Visit Only Diagnoses Leg pain M79.606 Thigh contusion S70.10XA Bladder outlet obstruction N32.0 CAD (coronary artery disease) I25.10 GERD (gastroesophageal reflux disease) K21.9 Hyperlipidemia E78.5 Generalized abdominal pain R10.84 Abdominal location: generalized Other chronic pain G89.29 Chronic pain type: other chronic pain Assessment & Plan Assessment & Plan (1) Leg pain: Comment: - The patient reports persistent throbbing pain and swelling, which is attributed to underlying arthritis exacerbated by a recent injury. - An ultrasound ruled out DVT. - The plan is to continue PRN Tylenol or ibuprofen for pain management and for the patient to follow up with his orthopedist in 1-2 weeks to discuss further interventions, including potential cortisone injections or surgical options. Code(s): M79.606 - Pain in leg, unspecified Category: Medical (2) Thigh contusion: Comment: - The patient sustained a blunt trauma injury to his thigh approximately two weeks ago, resulting in a palpable, hard, tender mass, likely a hematoma exacerbated by his dual antiplatelet therapy. - The plan is reassurance that the body will reabsorb the hematoma over time. Code(s): S70.10XA - Contusion of unspecified thigh, initial encounter Category: Medical (3) Bladder outlet obstruction: Comment: - The patient experienced urinary hesitancy and straining after a trial of stopping tadalafil, with symptoms resolving upon restarting the medication. - The plan is to continue tadalafil 5 mg daily. Code(s): N32.0 - Bladder-neck obstruction Category: Medical (4) CAD (coronary artery disease): Comment: Follows with the Cardiology Status post PCI - Continue aspirin and atorvastatin for further management. Code(s): I25.10 - Atherosclerotic heart disease of [place] coronary artery without angina pectoris Category: Medical (5) GERD (gastroesophageal reflux disease): Comment: - Continue Famotidine Code(s): K21.9 - Gastro-esophageal reflux disease without esophagitis Category: Medical (6) Hyperlipidemia: Comment: - Continue atorvastatin 40 mg daily - Last lipid panel evaluated, within normal limits Code(s): E78.5 - Hyperlipidemia, unspecified Category: Medical (7) Abdominal pain: Comment: - The patient reports stomach pain and loss of appetite at night. - Proceed with the scheduled EGD and colonoscopy for further evaluation. The patient has been cleared for the procedures by cardiology. Code(s): R10.9 - Unspecified abdominal pain Category: Medical Qualifiers: Abdominal location: generalized Qualified Code(s): R10.84 - Generalized abdominal pain (8) Chronic pain: Comment: - The patient is on a high dose of gabapentin 600 mg three times daily. - Continue the current dose of gabapentin, as there are no plans to increase it further. Code(s): G89.29 - Other chronic pain Category: Medical Qualifiers: Chronic pain type: other chronic pain Qualified Code(s): G89.29 - Other chronic pain Plan I discussed the patient's ongoing knee issues, advising him to follow up with his document review specialist to explore further treatment options, such as cortisone injections or surgery, and to use [id number] analgesics for pain in the meantime. I explained that the hard lump on his thigh is a hematoma resulting from his injury and is more extensive due to his use of aspirin and Plavix, and I reassured him that it will resolve on its own. We reviewed his urinary symptoms, and I reinforced the importance of continuing daily tadalafil, as it has clearly improved his urinary flow. I confirmed he will proceed with his scheduled EGD and colonoscopy to investigate his abdominal pain and noted he has cardiology clearance. We agreed not to increase his gabapentin dose, as it is already at the upper end of the therapeutic range. I commended his adherence to his cardiac medications and encouraged him to stay active. Patient Instructions: - Continue to take all your medications as prescribed, especially your heart medications (aspirin, Plavix, atorvastatin, metoprolol) and your tadalafil 5 mg daily for urination. - You can take Tylenol or ibuprofen as needed for your knee pain. - Make sure to follow up with your orthopedic (bone and joint) doctor in the next 1-2 weeks to talk about your knee pain and other treatments like shots or surgery. - The hard lump on your thigh is a large bruise from your injury. Because you take blood thinners, it is more noticeable. It should go away on its own over time. - Go ahead with your scheduled colonoscopy and endoscopy to figure out the cause of your stomach pain. Your heart doctor has confirmed it is safe for you to have this procedure. - Continue to keep yourself active.
[2025-09-25 11:08] VITALS: BP 110/64; PULSE 84; RESP 16; TEMP 36.2; O2SAT 95; BMI 41.4
--- OUTSIDE RECORDS SUMMARY | 2025-09-25 12:19 | XMS_ITS | Encounter Summary ---
Author Organization [facility] Address [address] [place] [address] Phone Care Team Providers Care Biomechanical Engineer Name Role Phone Pcp, Unknown Primary Care Provider Ben Kenny MD Primary Care Provider Encounter Details Date Type Department Care Team (Late st Contact Info) Description 06/24/2018 Ancillary Orders Virtual Department [address] [place] [address] Steve Larson MD [address] [place] [address] [email or web address] back pain, unspecified back pain laterality, unspecified chronicity, with sciatica presence unspecified Social History Tobacco Use Types Packs/Day Years Used Date Smoking Tobacco: Never Assessed Sex and Gender Information Value Date Recorded Sex Assigned at Not on file Legal Sex Male 9:36 PM EDT Gender Identity Not on file Sexual Orientation Not on file documented as of this encounter Plan of Treatment Upcoming Encounters Date Type Department Care Team (Late st Contact Info) Description 10/11/2025 11:45 AM EST Office Visit [facility] [address] [place] [address] Jae José MD [address] [place] [address] Orthopedics & Sports Medicine, [facility]. [place], [place] [id number] [email or web address] documented as of this encounter Results * [...] or prominent aortic dilatation apparent in the [id number]. There is suggestion of some minor ectasia [...] is progressive hypertrophic change about the left-sided [id number] joint. No progressive disc height loss. No progressive canal orforaminal stenosis. No bony destructive lesions identified. No compression deformity. No grosssclerosis or erosion in the visualized portion of the SI joints. No adenopathy or prominent aortic dilatation apparent in [id number]. There is suggestion of some minor ectasia [...] unspecified documented in this encounter Care Teams Biomechanical Engineer Relationship Specialty Start Date End Date Pcp, Unknown PCP - General 06/24/18 07/12/18 Ben Hoffman MD [address] [place] [address] [place] [address] PCP - General Internal Medicine 07/13/18 documented as of this encounter Additional Source Comments The information contained in this document represents components of the legal health record. It is not the complete legal health record.[facility]
--- OUTSIDE RECORDS SUMMARY | 2025-09-25 12:19 | XMS_ITS | Encounter Summary ---
Author Organization [facility] Address [address] [place] [address] Phone Care Team Providers Care Driveway Sealer Name Role Phone Pcp, Unknown Primary Care Provider Ben Kenny MD Primary Care Provider Encounter Details Date Type Department Care Team (Late st Contact Info) Description 06/24/2018 Procedure [facility], Ct Scan - [address] [address] Social History Tobacco Use Types Packs/Day Years [...] Description 10/11/2025 11:45 AM EST Office Visit [facility] [address] [place] [address] Jae José MD [address] [place] [address] Orthopedics & Sports Medicine, [facility] [place] [address] [email or web address] documented as of this encounter Visit Diagnoses Not on filedocumented in this encounter Care Teams Driveway Sealer Relationship Specialty Start Date End Date Pcp, Unknown PCP - General 06/24/18 07/12/18 Ben Hoffman MD [address] [place] [address] [place] [address] PCP - General Internal Medicine 07/13/18 documented as of this encounter Additional Source Comments The information contained in this document represents components of the legal health record. It is not the complete legal health record.[facility]
--- OUTSIDE RECORDS SUMMARY | 2025-09-25 12:19 | XMS_ITS | Encounter Summary ---
Author Organization [facility] Address [address] [place] [address] Phone Care Team Providers Care Operations Architect Name Role Phone Ben Hoffman MD Primary Care Provider Encounter Details Date Type Department Care Team (Late Contact Info) Description 11/02/2019 Ancillary Orders [facility], X-Ray - [address] [address] Steve Larson MD [address] [place] [address] [email or web address] Pain in right hip Social History Tobacco Use Types Packs/Day Years Used Date Smoking Tobacco: Never Assessed Sex and Gender Information Value Date Recorded Sex Assigned at Not on file Legal Sex Male 9:36 PM EDT Gender Identity Not on file Sexual Orientation Not on file documented as of this encounter Plan of Treatment Upcoming Encounters Date Type Department Care Team (Late Contact Info) Description 10/11/2025 11:45 AM EST Office Visit [facility] [address] [place] [address] Jae José MD [address] [place] [address] Orthopedics & Sports Medicine, [place] [address] [email or web address] documented as of this encounter Results * XR HIP 2 VW RIGHT PLUS PELVIS (11/02/2019 12:17 PM EST) Anatomical Region Laterality Modality Hip, Pelvis Radiographic Merna ging 11/02/2019 12:2 6 PM EST Impressions 11/02/2019 12:29 PM EST No significant change. POS - [id number] Narrative 11/02/2019 12:29 PM EST EXAM: XR [...] noted. IMPRESSION: No significant change. POS - [id number] Steve Larson MD IMG XR PELVIS Final R esult documented in this encounter Visit Diagnoses Diagnosis Pain in right hip Pain in right hip documented in this encounter Care Teams Operations Architect Relationship Specialty Start Date End Date Ben Hoffman MD [address] [place] [address] [place] [address] PCP - General Internal Medicine 07/13/18 documented as of this encounter Additional Source Comments The information contained in this document represents components of the legal health record. It is not the complete legal health record.[facility]
--- OUTSIDE RECORDS SUMMARY | 2025-09-25 12:20 | XMS_ITS | Encounter Summary ---
Author Organization [facility] Address [address] [place] [address] Phone Care Team Providers Care Pcat Instructor Name Role Phone Ben Hoffman MD Primary Care Provider Encounter Details Date Type Department Care Team (Late Contact Info) Description 02/03/2021 Ancillary Orders [facility] Medicine [address] [address] Crissy Gary MD [address] [place] [address] Orthopedics & Sports Medicine, [place] [address] Social History Tobacco Use Types Packs/Day Years [...] Description 10/11/2025 11:45 AM EST Office Visit [facility] Medicine [address] [address] Jae José MD [address] [place] [address] Orthopedics Sports [facility], [place] [address] [email or web address] documented as of this encounter Visit Diagnoses Not on filedocumented in this encounter Care Teams Pcat Instructor Relationship Specialty Start Date End Date Ben Hoffman MD [address] [place] [address] Dr [place], [place] [address] PCP - General Internal Medicine 07/13/18 documented as of this encounter Additional Source Comments The information contained in this document represents components of the legal health record. It is not the complete legal health record.[facility]
--- OUTSIDE RECORDS SUMMARY | 2025-09-25 12:20 | XMS_ITS | Clinical Summary ---
Author Organization [facility] Address [address] [place] [address] Phone Care Team Providers Care Tour Actor Name Role Phone Ben Hoffman MD Primary [...] everyday at bedtime 01/10/2025 Active Active Problems Problem Noted Date Diagnosed Date Contusion of left knee 08/24/2025 Encounters Date Type Department Care Team Description 08/23/2025 11:56 AM EST - 08/23/2025 11:59 PM EST Hospital Encounter [address] [address] Jae José MD Discharge Disposition: Home or Self Care 08/23/2025 11:45 AM EST Office Visit [facility] [address] [place] [address] Jae José MD Contusion of left knee, initial encounter (Primary Dx); Left knee pain from Last 3 Months Social History Tobacco Use Types Packs/Day Years [...] - Inhaled Oxygen Concentration - - Weight 122 kg (269 lb) 08/23/2025 11:53 AM EST Height 172.7 cm (5' 8 ) 08/23/2025 11:53 AM EST Body Mass Index 40.9 08/23/2025 11:53 AM EST Plan of Treatment Upcoming Encounters Date Type Department Care Team (Late st Contact Info) Description 10/11/2025 11:45 AM EST Office Visit [facility] Clinic [address] [place] [address] Jae José MD [address] [place] [address] Orthopedics & Sports Medicine, [facility] [place] [address] [email or web address] Health Maintenance Due Date Last Done Comments Adult Td,Tdap Booster 1969 LIPID PANEL 1969 DEPRESSION SCREENING 1981 HEPATITIS C SCREENING 1987 HIV ONE-TIME SCREENING (18-6 5 YEARS) 1987 SCREENING FOR DIABETES 2004 COLOGUARD 2014 COLONOSCOPY 2014 COLORECTAL CANCER SCREENING 2014 FIT TEST 2014 FOBT 2014 SIGMOIDOSCOPY 2014 VIRTUAL COLONOSCOPY 2014 PNEUMOCOCCAL VACCINES (50+ years) (1 of 1 - PCV) 2019 RSV VACCINE (1 - Risk 50-74 years 1-dose series) 2019 ZOSTER VACCINES (1 of 2) 2019 INFLUENZA VACCINE (#1) 2025 COVID-19 VACCINE (3 - 2024-2 6 season) 2025 06/24/2021, 06/03/2021 SMOKING STATUS SCREENING (On ce After 26 Yrs) Completed 08/23/2025 HEPATITIS A VACCINES Aged Out No long [...] this topic Medical Devices Not on file Procedures Procedure Name Priority Date/Time Associated Diagnosis Comments XR KNEE 4 OR MORE VIEWS (LEFT) Routine 08/23/2025 12:09 PM EST Left knee pain from Last 3 Months Results * XR KNEE 4 OR MORE VIEWS (LEFT) (08/23/2025 12:09 PM EST) Narrative SYSTEMGENERATED, DOCUMENTATION - 08/23/2025 12:09 PM EST This image report has been auto-finalized and has not been read by a Radiologist. Interpretation has been included in the provider encounter note for this date of service. us Jae José MD IMG XR LOWER EXTREMITY Final Result from Last 3 Months Insurance MEDICARE PART A & B [place] [facility] [place] & [facility] & [place] A & B [id number] [place] [address] MEDICARE PART A & B [facility] MEDICARE PART A & B [facility] Care Teams Tour Actor Relationship Specialty Start Date End Date Ben Hoffman MD [address] [place] [address] [place] [address] PCP - General Internal Medicine 07/13/18 Additional Source Comments The information contained in this document represents components of the legal health record. It is not the complete legal health record.[facility]
--- OUTSIDE RECORDS SUMMARY | 2025-09-25 12:20 | XMS_ITS | Encounter Summary ---
Author Organization [facility] Address [address] [place] [address] Phone Care Team Providers Care Manager Billing Name Role Phone Ben Hoffman MD Primary Care Provider Encounter Details Date Type Department Care Team (Late Contact Info) Description 10/06/2018 Ancillary Orders [facility], X-Ray - [facility] [address] [place] [address] Steve Larson MD [address] [place] [address] [email or web address] Social History Tobacco Use Types Packs/Day [...] Description 10/11/2025 11:45 AM EST Office Visit [facility] [address] [place] [address] Jae José MD [address] [place] [address] Orthopedics & Sports Medicine, [facility] [place] [address] [email or web address] documented as of this encounter Results * XR HIP 2 VW RIGHT PLUS PELVIS (10/06/2018 12:41 PM EST) Anatomical Region Laterality Modality Hip, Pelvis Radiographic Merna ging 10/06/2018 1:23 PM EST Impressions 10/06/2018 1:26 PM EST Mild osteoarthritic changes of bilateral hip joints, not significantly changed from 2014. POS - [id number] Narrative 10/06/2018 1:26 PM [...] pain documented in this encounter Care Teams Manager Billing Relationship Specialty Start Date End Date Ben Hoffman MD [address] [place] [address] [place] [address] PCP - General Internal Medicine 07/13/18 documented as of this encounter Additional Source Comments The information contained in this document represents components of the legal health record. It is not the complete legal health record.[facility]
--- OUTSIDE RECORDS SUMMARY | 2025-09-25 12:20 | XMS_ITS | Encounter Summary ---
Author Organization [facility] Address [address] [place] [phone] Phone Care Team Providers Care Ferryboat Captain Name Role Phone Ben Hoffman MD Primary Care Provider Encounter Details Date Type Department Care Team ([facility] Contact Info) Description 02/03/2021 Ancillary Orders [address] [address] Crissy Gary MD [address] [place] [address] Orthopedics & Sports Medicine, [place], [place] [id number] [email or web address] Hip pain, chronic, right Social [...] 10/11/2025 11:45 AM EST Office Visit [facility] [address] [place] [address] Jae José MD [address] [place] [address] Orthopedics Sports [facility], [place] [address] [email or web address] documented as of this encounter Visit Diagnoses Diagnosis Hip pain, chronic, right documented in this encounter Care Teams Ferryboat Captain Relationship Specialty Start Date End Date Ben Hoffman MD [address] [place] [address] Dr [place], [place] [address] PCP - General Internal Medicine 07/13/18 documented as of this encounter Additional Source Comments The information contained in this document represents components of the legal health record. It is not the complete legal health record.[facility]
== END 2025-09-25 11:35 | disposition home or self-care (01) ==
LOC: HO.HMCHD 11:00
PROVIDERS: PCP Student in an Organized Health Care Education/Training Program; Visit Provider Student in an Organized Health Care Education/Training Program
DX: M79.606 Pain in leg, unspecified (principal); S70.10XA Contusion of unspecified thigh, initial encounter; N32.0 Bladder-neck obstruction; I25.10 Atherosclerotic heart disease of native coronary artery without angina pectoris; K21.9 Gastro-esophageal reflux disease without esophagitis; E78.5 Hyperlipidemia, unspecified; R10.84 Generalized abdominal pain; G89.29 Other chronic pain

== ENCOUNTER → 2025-09-25 11:00 | Outpatient (BNVA) | payer MEDICARE, MEDICAID, SELFPAY | PROVIDERS: PCP Student in an Organized Health Care Education/Training Program; Visit Provider Student in an Organized Health Care Education/Training Program | DX: N52.9 Male erectile dysfunction, unspecified (principal); N32.0 Bladder-neck obstruction; E29.1 Testicular hypofunction; M79.606 Pain in leg, unspecified; S70.10XA Contusion of unspecified thigh, initial encounter; I25.10 Atherosclerotic heart disease of native coronary artery without angina pectoris; K21.9 Gastro-esophageal reflux disease without esophagitis; R10.84 Generalized abdominal pain; G89.29 Other chronic pain; X58.XXXA Exposure to other specified factors, initial encounter; Y93.9 Activity, unspecified; Y92.9 Unspecified place or not applicable; Y99.9 Unspecified external cause status | CPT/HCPCS: 51798; 81003; 99212 ==

== ENCOUNTER 2025-09-25 11:41 | Outpatient (AMB) | payer MEDICARE, MEDICAID, SELFPAY ==
--- NOTE | 2025-09-25 11:46 | A.OFFVIS_ITS ---
Intake Visit Reasons: 6m/PVR/SET UA Intake Note: Patient is present for LABS F/U -R/S MISSED APPT Urology Medication:TADALAFIL Antibiotic Allergy:PENICILLINS Blood Thinner:ASPIRIN PVR:0 mls Award Machine Operator Required: No Accompanied by: Self / Same As Patient Allergies meloxicam (From MOBIC) Allergy (Severe, Verified 09/25/25 11:51) GI BLEED Penicillins Allergy (Severe, Verified 09/25/25 11:51) ANAPHYLAXIS HPI Comments Details: Fred is a pleasant male. He is a patient Dr. Blanco. He seen for the following urologic conditions - hypogonadism - erectile dysfunction - lower urinary tract symptoms Six-month follow-up Lab work has not been repeated Significant improvement with daily tadalafil has been ongoing Initially had occasional headache but that has resolved Does smoke marijuana daily which may suppress testosterone Follow-up from 5 mg daily tadalafil - 20 mg on demand Hypogonadism Reports prior T therapies Labs - 11/26 T 246 FT 41, 05/26 T 246 F 39, 01/26 T 230 FSH 18 Erectile dysfunction Progressive Known coronary artery disease On medication for blood pressure, dyslipidemia Response to daily Cialis with 20 mg on demand PSA - 03/27 0.85 Lower urinary tract symptoms Good response to 5 mg daily tadalafil Improved stream and bladder stabilization PFSH Medical History (Updated 09/25/25 @ 12:31 by Pipe Eller MD) Chronic pain Abdominal pain Thigh contusion Restless leg syndrome Hyperlipidemia Osteoarthritis of carpometacarpal joint of left thumb Laceration of skin of right knee without complication Migraine On beta bj at home Elevated cholesterol Vitamin D deficiency History of depression Thalamic pain syndrome Hx of hypogonadism Neuropathy CAD (coronary artery disease) Osteoarthritis GERD (gastroesophageal reflux disease) Hx of colonic polyps IBS (irritable colon syndrome) Surgical History Hx of colonoscopy (~09/25/22) History of rectal sphincterotomy History of shoulder surgery History of open reduction and internal fixation (ORIF) procedure History of ankle surgery History of carpal tunnel surgery of left wrist History of tonsillectomy History of heart artery stent Hx of colonoscopy with polypectomy History of esophagogastroduodenoscopy (EGD) Status post angioplasty Family History Father Heart attack Mother Heart attack Sister Mental health disorder Social History Household Members: None Housing: House Are you a primary nonfarm animal caretaker to a significant other at home: No Do you presently have visiting nurse or other home services: Yes ([employer] 25 hours/week) Alcohol intake: current Alcohol intake frequency: does not drink Alcohol type: beer Patient Tobacco Use Status: Never used Tobacco e-Cigarette/Vaping Use: Never Used Substance Use Type: Marijuana service: No Current occupational status: disabled Cognitive needs: No Hearing needs: No Vision needs: Yes (rx glasses) Office Procedures Post Void Residual Post Residual Void Post Void Residual (PVR): 0 [id number] Void Residual by ultrasound Results AMB Urinalysis, Automated UA Leukoctes 15 Bernardo/uL Last Edit by Ariela Nunn [facility] on 09/25/25 12:00 UA Nitrite Negative Last Edit by Ariela Nunn, [facility] on 09/25/25 12:00 UA Urobilinogen 0.2 mg/dL Last Edit by Ariela Nunn [facility] on 09/25/25 12:00 UA Protein 15 mg/dL Last Edit by Ariela Nunn [facility] on 09/25/25 12:00 UA pH 6.0 Last Edit by Ariela Nunn, [facility] on 09/25/25 12:00 UA Blood 0 Nasim/uL Last Edit by Ariela Nunn, [facility] on 09/25/25 12:00 UA Specific [place] 1.025 Last Edit by Ariela Nunn [facility] on 09/25/25 12:0 0 UA Ketone Negative Last Edit by Ariela Nunn, [facility] on 09/25/25 12:00 UA Bilirubin 2 mg/dL Last Edit by Ariela Nunn [facility] on 09/25/25 12:00 UA Glucose 0 mg/dL Last Edit by Ariela Nunn [facility] on 09/25/25 12:00 Results Reviewed Results Reviewed: Laboratory Last Values Urine pH (Auto) 6.0 09/25/25 11:51 Specific [place] (Auto) 1.025 09/25/25 11:51 Urine Protein (Auto) 15 mg/dL 09/25/25 11:51 Glucose (UA)(Auto) 0 mg/dL 09/25/25 11:51 Urine Ketones (Auto) Negative 09/25/25 11:51 Urine Blood (Auto) 0 Nasim/uL 09/25/25 11:51 Urine Nitrite (Auto) Negative 09/25/25 11:51 Urine Bilirubin (Auto) 2 mg/dL 09/25/25 11:51 Urine Urobilinogen (Auto) 0.2 mg/dL 09/25/25 11:51 Leukocyte Esterase (Auto) 15 Bernardo/uL 09/25/25 11:51 Assessment & Plan Assessment & Plan Orders: Orders Testosterone, Free/Total 5 Months E29.1 - Testicular hypofunction Lutenizing Hormone 5 Months E29.1 - Testicular hypofunction AMB Urinalysis Automated Today N13.8 - Other obstructive and reflux uropathy, N40.1 - Benign prostatic hyperplasia with lower urinary tract symptoms AMB Post Void Residual by ultrasound Today N40.1 - Benign prostatic hyperplasia with lower urinary tract symptoms Prostate Specific Antigen 5 Months E29.1 - Testicular hypofunction Medications: Refilled tadalafil For prostate and erections 5 mg PO DAILY 90 tabs 1RF sexual activity 90 days N52.9 - Male erectile dysfunction, unspecified tadalafil Take 2-3 hours before intended activity 20 mg PO ONCE PRN 30 tabs 0RF sexual activity 30 days N52.9 - Male erectile dysfunction, unspecified Coding CPT Codes Post Residual Void - PVR CPT Code: [id number] Void Residual by ultrasound ([id number])
== END 2025-09-25 12:35 | disposition home or self-care (01) ==
LOC: HO.HUSH 11:42
PROVIDERS: PCP Internal Medicine; Visit Provider Urology
DX: N40.1 Benign prostatic hyperplasia with lower urinary tract symptoms (principal); N13.8 Other obstructive and reflux uropathy